=== PATIENT | male | born 1950 | race Caucasian/White ===

== ENCOUNTER 2017-06-09 01:11 | Observation (INO) | payer MEDICARE ==
[2017-06-09] MEDS ORDERED: HEPARIN SODIUM,PORCINE 5,000 UNIT/ML 1 ML VIAL IV STA (01:47)
[2017-06-09] MEDS ORDERED: ONDANSETRON 4 MG/2 ML VIAL IVP STA (01:47)
[2017-06-09] MEDS ORDERED: MORPHINE SULFATE 2 MG/ML SYRINGE IVP STA (01:47)
[2017-06-09] MEDS ORDERED: HEPARIN SOD,PORK IN 0.45% NACL 25,000 UNIT in 0.45% NACL 1 500ML.BAG IV SCH (02:00)
[2017-06-09] MEDS ORDERED: POTASSIUM CHLORIDE ORAL LIQUID 40 MEQ/30 ML CUP PO ONE (02:20)
--- NOTE | 2017-06-09 02:25 | ED ---
Chest Pain HPI - General Chief Complaint: Chest Pain Stated Complaint: chest pain Time Seen by Provider: 06/09/17 01:25 Source: patient, EMS Mode of arrival: EMS Limitations: no limitations - History of Present Illness Initial Comments: 67 years old male was transferred from [facility] with the chest pain. Presented to the ER (at around 7 PM and chest pain chest pain at that point was 6/10 because some aspirin and nitro and oxygen that helped his chest pain significantly they didn't quite comprehensive workup his EKG was unremarkable troponin was negative BNP was negative potassium is bit low CBC was normal, BS metabolic panel within normal range chest x-ray was normal and PE study was normal. Chest pain was not 100% his CHEST pain was nagging at 1/ 10 and transferred him to our facility. On arrival he denies any headaches or chest pain is 1/10 now no epigastric pain no neck stiffness no frequency urgency dysuria no symptoms of TIA or CVA - Related Data Home Medications Medication Instructions Recorded Confirmed Atenolol 50 mg PO HS 11/06/15 11/19/15 Glucosam/Hong-Msm1/C/Ryan/Bosw 1 tab PO DAILY 11/06/15 11/19/15 [Glucosamine-Chondroitin Tablet] Losartan/Hydrochlorothiazide 1 tab PO DAILY 11/06/15 11/19/15 [Losartan-Hctz 100-25 mg Tab] NIFEdipine [Adalat cc] 90 mg PO DAILY 11/06/15 11/19/15 Omeprazole [PriLOSEC] 20 mg PO BID PRN 11/06/15 11/19/15 Ponaris 1 drop EA NOSTRIL DAILY 11/06/15 11/19/15 Previous Rx's Medication Instructions Recorded Aspirin EC [Ecotrin] 325 mg PO DAILY #30 tablet. 11/07/15 Atorvastatin [Lipitor] 80 mg PO DAILY #30 tab 11/07/15 Nitroglycerin Sl Tabs [Nitrostat] 0.4 mg SUBLINGUAL Q5M PRN #25 tab 11/07/15 Prasugrel [Effient] 10 mg PO DAILY #30 tab 11/07/15 Isosorbide Mononitrate ER [Imdur] 30 mg PO DAILY #90 tab.er.24h 11/19/15 Allergies Allergy/AdvReac Type Severity Reaction Status Date / Time Sulfa (Sulfonamide Allergy Anaphylaxis Verified 11/19/15 11:54 Antibiotics) Review of Systems ROS Statement: Those systems with pertinent positive or pertinent negative responses have been documented in the HPI. ROS Other: All systems not noted in ROS Statement are negative. Past Medical History Past Medical History: Chest Pain / Angina, GERD/Reflux, Hyperlipidemia, Hypertension Additional Past Medical History / Comment(s): Small hiatal hernia, diverticulosis, gastritis, low grade distal esophagitis, chronic sinusitis, low back pain and bilateral hip pain with bilateral leg weakness-has been seeing a chiropractor. History of Any Multi-Drug Resistant Organisms: None Reported Past Surgical History: Adenoidectomy, Heart Catheterization With Stent, Orthopedic Surgery, Tonsillectomy Additional Past Surgical History / Comment(s): VASECTOMY, Circumcism, RIGHT SHOULDER arthrotomy, lasik surgery bilateral eyes, EGD's amd colonoscopies now q 5 yrs (originally had some precancerous spots in colon). Past Anesthesia/Blood Transfusion Reactions: No Reported Reaction Date of Last Stent Placement:: 11/06/2015 Past Psychological History: No Psychological Hx Reported Smoking Status: Never smoker Past Alcohol Use History: Occasional Past Drug Use History: None Reported - Past Family History Father Family Medical History: Cancer, Dementia Additional Family Medical History / Comment(s): Father at the age of 84 yrs from dementia and had bladder cancer. Mother Family Medical History: Cancer Additional Family Medical History / Comment(s): Mother at age 63 with cancer believed to start in her leg with metastatic disease to the lung and brain. Patient does not have any siblings. Patient has 2 daughters and 1 son with no major medical problems. General Exam - General Exam Comments Initial Comments: General: The patient is awake and alert, in no distress, and does not appear acutely ill. Skin: Skin is warm and dry and no rashes or lesions are noted. Eye: Pupils are equal, round and reactive to light, extra-ocular movements are intact; there is normal conjunctiva bilaterally. Ears, nose, mouth and throat: There are moist mucous membranes and no oral lesions. Neck: The neck is supple, there is no tenderness or JVD. Cardiovascular: There is a regular rate and rhythm. No murmur, rub or gallop is appreciated. Respiratory: To auscultation bilateral, no wheezing no rhonchi no distress respiratory julio noticed Gastrointestinal: Soft, non-distended, non-tender abdomen without masses or organomegaly noted. There is no rebound or guarding present. Bowel sounds are unremarkable. Back: There is no tenderness to palpation in the midline. There is no obvious deformity. Musculoskeletal: Normal ROM, no tenderness, There is no pedal edema. There is no calf tenderness or swelling. No cords were appreciated. Neurological: CN II-XII intact, Cranial nerves III through XII are intact. There are no obvious motor or sensory deficits. Coordination appears grossly intact. Speech is normal. Psychiatric: Cooperative, appropriate mood & affect, normal judgment. Limitations: no limitations Course Vital Signs 06/09/17 01:16 Temperature 97.8 F Pulse Rate 66 Respiratory 18 Rate Blood Pressure 148/76 O2 Sat by Pulse 98 Oximetry Ms. Reichby heparinized and now will consult cardiology - Reevaluation(s) Reevaluation #1: He continued to complain about the right calf pain will go ahead and do the right venous Doppler studies 06/09/17 02:27 Critical Care Time Total Critical Care Time: 30 Critical Care Time: 67 years old gentleman is a known no heart disease patient, he has a stent in his LAD and he continued to have a pain bilaterally last though he's EKG is unremarkable so his troponin but then also an area fits into unstable angina. His chest pain has gotten better we plan to put him on heparin drip after bolus and he be treated as acute coronary syndrome he be admitted to Dr. Camarena for his croup since Dr. Pete Henriquez is his primary care Disposition Clinical Impression: Chest pain, History of ischemic heart disease, Right leg pain Disposition: ADMITTED IP TO THIS HOSP Condition: Fair Referrals: Pete Henriquez MD [Primary Care Provider] - 1-2 days
[2017-06-09] MEDS ORDERED: NITROGLYCERIN SL TABS 0.4 MG TAB SUBLINGUAL PRN (03:05)
[2017-06-09] MEDS ORDERED: MORPHINE SULFATE 4 MG/ML SYRINGE IVP PRN (03:05)
[2017-06-09] MEDS ORDERED: HEPARIN SODIUM,PORCINE 5,000 UNIT/ML 1 ML VIAL IV PRN (03:16)
[2017-06-09 04:19] VITALS: BMI 20.9
[2017-06-09 08:21] VITALS: RESP 18
[2017-06-09 09:55] LABS: Anion Gap 8 mmol/L; Blood Urea Nitrogen 22 mg/dL (9-20); Calcium 9.1 mg/dL (8.4-10.2); Carbon Dioxide 26 mmol/L (22-30); Chloride 111 mmol/L (98-107); Glucose 102 mg/dL (74-99); Potassium 4.2 mmol/L (3.5-5.1); Sodium 145 mmol/L (137-145)
[2017-06-09 10:02] LABS: Partial Thromboplastin Time 37.8 sec (22.0-30.0); Prothrombin Time 10.2 sec (9.0-12.0)
[2017-06-09 10:15] LABS: Basophils % (A) 1 %; Eosinophils # (A) 0.1 k/uL (0-0.7); Eosinophils % (A) 1 %; HCT 39.6 % (39.0-53.0); HGB 13.1 gm/dL (13.0-17.5); Lymphocytes % (A) 18 %; MCH 30.6 pg (25.0-35.0); MCHC 33.1 g/dL (31.0-37.0); MCV 92.4 fL (80.0-100.0); Mean Platelet Volume 6.9; Monocytes # (A) 0.4 k/uL (0-1.0); Monocytes % (A) 6 %; Neutrophils # (A) 4.1 k/uL (1.3-7.7); Neutrophils % (A) 73 %; Platelet Count 291 k/uL (150-450); RBC 4.29 m/uL (4.30-5.90); RDW 13.6 % (11.5-15.5); WBC 5.6 k/uL (3.8-10.6)
[2017-06-09] MEDS ORDERED: LOSARTAN-HCTZ 50-12.5 MG 1 EACH TAB PO SCH (10:15)
[2017-06-09] MEDS ORDERED: ISOSORBIDE MONONITRATE ER 30 MG TAB.ER.24H PO SCH (10:15)
[2017-06-09] MEDS ORDERED: NIFEdipine XL 90 MG TAB.ER.24 PO SCH (10:30)
[2017-06-09 11:30] VITALS: BP 140/75; PULSE 73; TEMP 98.1
--- NOTE | 2017-06-09 14:09 | P.CRDCN ---
History of Present Illness Consult date: 06/09/17 Consult reason: chest pain History of present illness: Mr. Pabon is a pleasant 67-year-old male past medical history significant for coronary artery disease with stent to LAD, hypertension, dyslipidemia, parkingsons disease and gastroesophageal reflux disease. He sees Dr. Goodman in the office. We have been asked to see him in consultation for complaints of chest pain. He states yesterday evening around 5pm he started to have heaviness in his chest in the mid-sternal region. The pain radiated to the jaw and down the left arm and was associated with shortness of breath and dizziness. The pain was constant and was alleviated by getting up and moving around. He presented to [facility] for evaluation. Initial EKG and troponin were both unremarkable however he did have hypokalemia 2.9. His potassium was replaced. Repeat this morning was 4.2. Cardiac enzymes negative 3. Current cardiac medications include nifedipine 90 mg, losartan/ hydrochlorothiazide 100/25 mg daily, atenolol 50 mg daily, Imdur 30 mg daily, and aspirin 81 mg daily. Most recent Lexiscan stress test performed in January 2017 is negative for reversible ischemia. Most recent cardiac catheterization performed November 2015 revealed patent stent with bridging of LAD. Review of Systems At the time of my exam: CONSTITUTIONAL: Denies fever. Denies chills. EYES: Denies blurred vision. Denies vision changes. Denies eye pain. EARS, NOSE, MOUTH & THROAT: Denies headache. Denies sore throat. Denies ear pain. CARDIOVASCULAR: Denies chest pain. Denies shortness of breath. Denies orthopnea. Denies PND. Denies palpitations. RESPIRATORY: Denies cough. GASTROINTESTINAL: Denies abdominal pain. Denies diarrhea. Denies constipation. Denies nausea. Denies vomiting. MUSCULOSKELETAL: Planes of pain left lower arm. INTEGUMENTARY: Denies pruitis. Denies rash. NEUROLOGIC: Denies numbness. Denies tingling. Denies weakness. PSYCHIATRIC: Denies anxiety. Denies depression. ENDOCRINE: Denies fatigue. Denies weight change. Denies polydipsia. Denies polyurina. GENITOURINARY: Denies burning, hematuria or urgency with micturation. HEMATOLOGIC: Denies history of anemia. Denies bleeding. Past Medical History Past Medical History: Chest Pain / Angina, GERD/Reflux, Hyperlipidemia, Hypertension Additional Past Medical History / Comment(s): Parkinsons. Small hiatal hernia, diverticulosis, gastritis, low grade distal esophagitis, chronic sinusitis, low back pain and bilateral hip pain with bilateral leg weakness-has been seeing a chiropractor. History of Any Multi-Drug Resistant Organisms: None Reported Past Surgical History: Adenoidectomy, Heart Catheterization With Stent, Orthopedic Surgery, Tonsillectomy Additional Past Surgical History / Comment(s): VASECTOMY, Circumcism, RIGHT SHOULDER arthrotomy, lasik surgery bilateral eyes, EGD's amd colonoscopies now q 5 yrs (originally had some precancerous spots in colon). Past Anesthesia/Blood Transfusion Reactions: No Reported Reaction Date of Last Stent Placement:: 11/06/2015 Past Psychological History: No Psychological Hx Reported Additional Psychological History / Comment(s): Pt resides with his spouse. 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 He is independent. Smoking Status: Never smoker Past Alcohol Use History: Occasional Additional Past Alcohol Use History / Comment(s): Patient was a smoker for 5 years 1 pack per day and quit in 1970. He denies any medical marijuana, marijuana street drug use. He drinks alcohol occasionally. 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 Past Drug Use History: None Reported - Past Family History Father Family Medical History: Cancer, Dementia Additional Family Medical History / Comment(s): Father at the age of 84 yrs from dementia and had bladder cancer. Mother Family Medical History: Cancer Additional Family Medical History / Comment(s): Mother at age 63 with cancer believed to start in her leg with metastatic disease to the lung and brain. Patient does not have any siblings. Patient has 2 daughters and 1 son with no major medical problems. Medications and Allergies Home Medications Medication Instructions Recorded Confirmed Type Atenolol 50 mg PO HS 11/06/15 06/09/17 History Losartan/Hydrochlorothiazide 1 tab PO DAILY 11/06/15 06/09/17 History [Losartan-Hctz 100-25 mg Tab] NIFEdipine [Adalat cc] 90 mg PO DAILY 11/06/15 06/09/17 History Omeprazole [PriLOSEC] 20 mg PO BID PRN 11/06/15 06/09/17 History Aspirin 81 mg PO DAILY chew 06/09/17 Rx Carbidopa-Levodopa 25-100 mg 1 tab PO QID@11,14,17,21 06/09/17 06/09/17 History [Sinemet 25-100 mg] Carbidopa-Levodopa 25-100 mg 2 tab PO DAILY@0700 06/09/17 06/09/17 History [Sinemet 25-100 mg] Isosorbide Mononitrate ER [Imdur] 60 mg PO DAILY #30 tab.er.24h 06/09/17 Rx Allergies Allergy/AdvReac Type Severity Reaction Status Date / Time Sulfa (Sulfonamide Allergy Anaphylaxis Verified 06/09/17 08:17 Antibiotics) Physical Exam Vitals: Vital Signs Temp Pulse Pulse Resp BP BP BP 06/09/17 08:00 97.5 F L 81 18 169/87 06/09/17 04:30 16 06/09/17 04:11 97.8 F 68 16 126/69 06/09/17 01:16 97.8 F 66 18 148/76 Pulse Ox 06/09/17 08:00 95 06/09/17 04:30 06/09/17 04:11 99 06/09/17 01:16 98 Intake and Output 06/08/17 06/09/17 06/09/17 22:59 06:59 14:59 Other: Weight 72.121 kg Blood pressure 169/87 heart rate 81 afebrile GENERAL: This is a 67-year-old male in no apparent distress at the time of my examination. Generalized tremors. HEENT: Head is atraumatic, normocephalic. Pupils are equal, round. Sclerae anicteric. Conjunctivae are clear. Mucous membranes of the mouth are moist. Neck is supple. There is no jugular venous distention. No carotid bruit is heard. LUNGS: Clear to auscultation no wheezes, rales or rhonchi. No chest wall tenderness is noted on palpation or with deep breathing. HEART: Regular rate and rhythm without murmurs, rubs or gallops. S1 and S2 heard. ABDOMEN: Soft, nontender. Bowel sounds are heard. No organomegaly noted. EXTREMITIES: No evidence of peripheral edema and no calf tenderness noted. VASCULAR: Radial and dorsalis pedis pulses palpated, no evidence of clubbing. NEUROLOGIC: Patient is awake, alert and oriented x3. Results 06/09/17 09:13 06/09/17 09:13 Cardiac Enzymes 06/09/17 Range/Units 02:11 Troponin I 0.013 (0.000-0.034) ng/mL Current Medications Generic Name Dose Route Start Last Admin Trade Name Damienq PRN Reason Stop Dose Admin Aspirin 325 mg 06/10/17 09:00 Aspirin PO DAILY AISLINN Heparin Sodium (Porcine) 0 unit 06/09/17 03:16 Heparin IV PER PROTOCOL PRN Low PTT Protocol Heparin Sodium/Sodium Chloride 500 mls @ 17.3 mls/hr 06/09/17 02:00 06/09/17 03:19 25,000 unit/ Sodium Chloride IV 12 units/kg/hr .Q24H AISLINN 17.3 mls/hr Protocol Administration 12 UNITS/KG/HR Morphine Sulfate 2 mg 06/09/17 03:05 Morphine Sulfate (Inj) IVP Q5M PRN Chest Pain Nitroglycerin 0.4 mg 06/09/17 03:05 Nitrostat SUBLINGUAL Q5M PRN Chest Pain Intake and Output 06/08/17 06/09/17 06/09/17 22:59 06:59 14:59 Other: Weight 72.121 kg Assessment and Plan Assessment: ASSESSMENT 1. Chest pain, atypical. Acute coronary event has been ruled out with negative cardiac enzymes as well as no changes in the EKG. Most recent Lexiscan stress test was negative January 2017 2. History of coronary artery disease most recent cardiac catheterization November 2015 shows no progression of disease and patent stent of the LAD 3. Hypertension 4. Dyslipidemia 5. Gastroesophageal reflux disease 6. Hypokalemia, resolved PLAN An acute coronary event has been ruled out with no significant EKG changes and negative cardiac enzymes. Increase Imdur to 60 mg daily. Follow-up with Dr. Goodman in 2-3 weeks. Thank you kindly for this consultation. Nurse Practitioner note has been reviewed, I agree with a documented findings and plan of care. Patient was seen and examined.
--- NOTE | 2017-06-09 15:25 | P.HPIM ---
History of Present Illness H&P Date: 06/09/17 Chief Complaint: Chest pain HISTORY AND PHYSICAL AND DISCHARGE SUMMARY: This is a 67-year-old male patient of Dr. Pete Henriquez with a past medical history of hiatal hernia and gastroesophageal reflux disease, hyperlipidemia, hypertension, non-ST elevated myocardial infarction status post mid LAD stent in 2016, Parkinson's. Patient recently has gallbladder removed [address] Polanco [facility]. Patient states the he developed pressure-type pain in his upper right chest and went into his jaw and felt like his wrists and ankles were tingling. He took nitroglycerin with no improvement after 5 minutes he called 911. He was taken to [facility] where he was evaluated and then transferred to [facility] emergency center. He states he has stress test done 6 months ago but he has been less active and now walks with a cane due to his Parkinson's that was diagnosed 18 months ago. He states it had a sudden onset and he has been following with Dr. Nobles. He is also following with Dr. Vallecillo and is scheduled for steroid injections. He has recently lost 79 pounds. Patient was placed on the observation unit and he has been seen by cardiology and he's been cleared for discharge home. Cardiology increased his Imdur from 30 mg to 60 mg and plan for follow-up in the office. Troponins have been negative on 3 draws. EKG showed no acute changes. Patient will be discharged home today in stable condition. Discharge Medication List Atenolol 50 mg PO HS 11/06/15 [History] Losartan/Hydrochlorothiazide [Losartan-Hctz 100-25 mg Tab] 1 tab PO DAILY [History] NIFEdipine [Adalat cc] 90 mg PO DAILY 11/06/15 [History] Omeprazole [PriLOSEC] 20 mg PO BID PRN 11/06/15 [History] Aspirin 81 mg PO DAILY chew 06/09/17 [Rx] Carbidopa-Levodopa 25-100 mg [Sinemet 25-100 mg] 1 tab PO QID@11,14,17,21 [History] Carbidopa-Levodopa 25-100 mg [Sinemet 25-100 mg] 2 tab PO DAILY@0700 06/09/17 [ History] Isosorbide Mononitrate ER [Imdur] 60 mg PO DAILY #30 tab.er.24h 06/09/17 [Rx] Review of Systems All systems: negative Constitutional: Denies chills, Denies fever Eyes: denies blurred vision, denies pain Ears, nose, mouth and throat: Denies headache, Denies sore throat Cardiovascular: Reports chest pain, Denies decreased exercise tolerance, Denies dyspnea on exertion, Denies high blood pressure, Denies leg edema, Denies lightheadedness, Denies shortness of breath, Denies syncope Respiratory: Denies cough, Denies cough with sputum, Denies dyspnea, Denies excessive sputum, Denies hemoptysis, Denies home oxygen Gastrointestinal: Denies abdominal pain, Denies diarrhea, Denies nausea, Denies vomiting Musculoskeletal: Denies myalgias Integumentary: Denies pruritus, Denies rash Neurological: Denies numbness, Denies weakness Psychiatric: Denies anxiety, Denies depression Endocrine: Denies fatigue, Denies weight change Past Medical History Past Medical History: Chest Pain / Angina, GERD/Reflux, Hyperlipidemia, Hypertension Additional Past Medical History / Comment(s): Parkinsons. Small hiatal hernia, diverticulosis, gastritis, low grade distal esophagitis, chronic sinusitis, low back pain and bilateral hip pain with bilateral leg weakness-has been seeing a chiropractor. History of Any Multi-Drug Resistant Organisms: None Reported Past Surgical History: Adenoidectomy, Cholecystectomy, Heart Catheterization With Stent, Orthopedic Surgery, Tonsillectomy Additional Past Surgical History / Comment(s): VASECTOMY, Circumcism, RIGHT SHOULDER arthrotomy, lasik surgery bilateral eyes, EGD's amd colonoscopies now q 5 yrs (originally had some precancerous spots in colon). Past Anesthesia/Blood Transfusion Reactions: No Reported Reaction Date of Last Stent Placement:: 11/06/2015 Past Psychological History: No Psychological Hx Reported Additional Psychological History / Comment(s): Pt resides with his spouse. 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 He is independent. Smoking Status: Never smoker Past Alcohol Use History: Occasional Additional Past Alcohol Use History / Comment(s): Patient was a smoker for 5 years 1 pack per day and quit in 1970. He denies any medical marijuana, marijuana street drug use. He drinks alcohol occasionally. He recently retired in January 2015 after 46 years as a security police. Past Drug Use History: None Reported - Past Family History Father Family Medical History: Cancer, Dementia Additional Family Medical History / Comment(s): Father at the age of 64 yrs from dementia and had bladder cancer. Mother Family Medical History: Cancer Additional Family Medical History / Comment(s): Mother at age 63 with cancer believed to start in her leg with metastatic disease to the lung and brain. Patient does not have any siblings. Patient has 2 daughters and 1 son with no major medical problems. Medications and Allergies Home Medications Medication Instructions Recorded Confirmed Type Atenolol 50 mg PO HS 11/06/15 06/09/17 History Losartan/Hydrochlorothiazide 1 tab PO DAILY 11/06/15 06/09/17 History [Losartan-Hctz 100-25 mg Tab] NIFEdipine [Adalat cc] 90 mg PO DAILY 11/06/15 06/09/17 History Omeprazole [PriLOSEC] 20 mg PO BID PRN 11/06/15 06/09/17 History Aspirin 81 mg PO DAILY chew 06/09/17 Rx Carbidopa-Levodopa 25-100 mg 1 tab PO QID@11,14,17,21 06/09/17 06/09/17 History [Sinemet 25-100 mg] Carbidopa-Levodopa 25-100 mg 2 tab PO DAILY@0700 06/09/17 06/09/17 History [Sinemet 25-100 mg] Isosorbide Mononitrate ER [Imdur] 60 mg PO DAILY #30 tab.er.24h 06/09/17 Rx Allergies Allergy/AdvReac Type Severity Reaction Status Date / Time Sulfa (Sulfonamide Allergy Anaphylaxis Verified 06/09/17 08:17 Antibiotics) Physical Exam Vitals: Vital Signs Temp Pulse Pulse Resp BP BP BP 06/09/17 11:29 98.1 F 73 18 140/75 06/09/17 08:00 97.5 F L 81 18 169/87 06/09/17 04:30 16 06/09/17 04:11 97.8 F 68 16 126/69 06/09/17 01:16 97.8 F 66 18 148/76 Pulse Ox 06/09/17 11:29 96 06/09/17 08:00 95 06/09/17 04:30 06/09/17 04:11 99 06/09/17 01:16 98 Intake and Output 06/08/17 06/09/17 06/09/17 22:59 06:59 14:59 Other: Voiding Method Toilet # Voids 1 Weight 72.121 kg General appearance: cooperative, no acute distress. negative: average body habitus, disheveled, mild distress, morbidly obese, obese, severe distress, thin - EENT Eyes: Reports normal apperance, Denies abnormal pupil, Denies anicteric sclerae , Denies disc margins sharp, Denies edentulous, Denies EOMI, Denies PERRLA, Denies fundus normal, Denies photophobia, Denies dentition normal, Denies poor dentition, Denies ptosis, Denies scleral icterus ENT: Reports normal oropharynx, Denies hard of hearing, Denies hearing grossly normal, Denies NA/AT, Denies other, Denies pharyngeal erythema, Denies thrush, Denies tonsillar exudates, Denies tonsillar swelling Ears: bilateral: normal - Neck Neck: Reports normal ROM, Denies lymphadenopathy, Denies other, Denies rigidity , Denies stridor, Denies thyromegaly Carotids: bilateral: upstroke normal Thyroid: bilateral: normal size - Respiratory Respiratory: bilateral: CTA - Cardiovascular Rhythm: regular Heart sounds: normal: S1, S2 Abnormal Heart Sounds: Reports systolic murmur - Gastrointestinal General gastrointestinal: Reports decreased bowel sounds, Reports soft, Denies absent bowel sounds, Denies distended, Denies hepatomegaly, Denies hyperactive bowel sounds, Denies normal bowel sounds, Denies organomegaly, Denies rigid, Denies scaphoid, Denies splenomegaly, Denies tenderness, Denies umbilical hernia , Denies ventral hernia - Integumentary Integumentary: Reports normal, Reports pale, Denies calor, Denies cellulitis, Denies cyanotic, Denies decreased turgor, Denies flushed, Denies jaundiced, Denies normal turgor, Denies rash, Denies ulcer - Neurologic Neurologic: CNII-XII intact - Musculoskeletal Musculoskeletal: Reports gait normal, Reports generalized weakness - Psychiatric Psychiatric: Reports A&O x's 3 Results CBC & Chem 7: 06/09/17 09:13 06/09/17 09:13 Labs: Abnormal Lab Results - Last 24 Hours (Table) 06/09/17 06/09/17 06/09/17 Range/Units 09:13 09:13 09:13 RBC 4.29 L (4.30-5.90) m/uL APTT 37.8 H (22.0-30.0) sec Chloride 111 H (98-107) mmol/L BUN 22 H (9-20) mg/dL Glucose 102 H (74-99) mg/dL Thrombosis Risk Factor Assmnt - Choose All That Apply Each Risk Factor Represents 2 Points: Age 61-74 years Thrombosis Risk Factor Assessment Total Risk Factor Score: 2 Thrombosis Risk Factor Assessment Level: Low Risk Assessment and Plan Plan: 1. Chest pain right-sided with radiation into the right neck. This may be related to spondylosis from the spine. Patient does have appointments set up for Dr. Vallecillo for steroid injections. 2. History of non-ST elevated myocardial infarction status post stent, stable. Imdur increased by cardiology. Aspirin added. 3. Hyperlipidemia. Continue Lipitor 10 mg at bedtime 3. Gastroesophageal reflux disease. Continue omeprazole 20 mg twice daily. 4. Hypertension. Continue atenolol 50 mg hs, losartan and hydrochlorothiazide , Procardia XL 90 mg daily. 5. Parkinson's. Continue Sinemet. Patient placed on the observation unit. Discharge plan: Home Impression and plan of care have been directed as dictated by the signing physician. Sapna Mcconnell nurse practitioner acting as scribe for signing physician.
[2017-06-09] MEDS ORDERED: ATENOLOL 50 MG TAB PO SCH (21:00)
[2017-06-10] MEDS ORDERED: ISOSORBIDE MONONITRATE ER 60 MG TAB.ER.24H PO SCH (09:00)
[2017-06-10] MEDS ORDERED: ASPIRIN 325 MG TAB PO SCH (09:00)
[2017-06-10] MEDS ORDERED: ASPIRIN 81 MG PO SCH (09:00)
== END 2017-06-09 13:20 | disposition home or self-care (01) ==
LOC: EC 01:11 → 3OBS 03:05
PROVIDERS: ADMIT Internal Medicine Geriatric Medicine; ATTEND Internal Medicine Geriatric Medicine
DX: R07.89 Other chest pain (principal); M79.604 Pain in right leg; R06.02 Shortness of breath; R42 Dizziness and giddiness; E87.6 Hypokalemia; R68.84 Jaw pain; R20.2 Paresthesia of skin; I25.2 Old myocardial infarction; I25.10 Atherosclerotic heart disease of native coronary artery without angina pectoris; E78.5 Hyperlipidemia, unspecified; K21.9 Gastro-esophageal reflux disease without esophagitis; I10 Essential (primary) hypertension; G20 Parkinson's disease; K44.9 Diaphragmatic hernia without obstruction or gangrene; M47.9 Spondylosis, unspecified; J32.9 Chronic sinusitis, unspecified; Z79.899 Other long term (current) drug therapy; Z88.2 Allergy status to sulfonamides; Z95.5 Presence of coronary angioplasty implant and graft; Z80.52 Family history of malignant neoplasm of bladder; Z80.9 Family history of malignant neoplasm, unspecified; Z81.8 Family history of other mental and behavioral disorders; Z79.82 Long term (current) use of aspirin; Z87.891 Personal history of nicotine dependence; Z90.49 Acquired absence of other specified parts of digestive tract; M54.5 Low back pain; R53.1 Weakness; M25.551 Pain in right hip; M25.552 Pain in left hip; K57.90 Diverticulosis of intestine, part unspecified, without perforation or abscess without bleeding; K29.70 Gastritis, unspecified, without bleeding; K20.9 Esophagitis, unspecified; Z79.01 Long term (current) use of anticoagulants
CPT/HCPCS: 99291; 96365 ×2; 96376 ×2; 96375 ×3; 36415; 80048; 84484; 85025; 85610; 85730; G0378; J1644 ×2; J2405; J2270; 93005

== ENCOUNTER 2017-07-17 17:13 | Inpatient (IN) | payer MEDICARE ==
--- NOTE | 2017-07-17 18:20 | ED ---
General Adult HPI - General Chief complaint: Psychiatric Symptoms Stated complaint: EPS EVAL Time Seen by Provider: 07/17/17 17:58 Source: patient, RN notes reviewed Mode of arrival: wheelchair Limitations: no limitations - History of Present Illness Initial comments: 67 yo male presents to the ER with cc of hallucination and delusions x 3-4 days. Patient has a history of Parkinson's disease. He states the last 3 or 4 days he's now having worsening hallucinations and delusions. Patient Zoloft was increased yesterday he does suffer from depression. There were concerned because of his worsening symptoms so they thought that he should be seen. He denies any health concerns. He denies any fever chills. Family states that he just seems worse with his hallucinations without that they should be seen. Patient denies any recent fever, chills, shortness of breath, chest pain, back pain, abdominal pain, nausea vomiting, numbness or tingling, dysuria or hematuria, constipation or diarrhea, headaches or visual changes, or any other current symptoms. - Related Data Home Medications Medication Instructions Recorded Confirmed Atenolol 50 mg PO DAILY 11/06/15 07/17/17 NIFEdipine [Adalat cc] 90 mg PO HS 11/06/15 07/17/17 Omeprazole [PriLOSEC] 20 mg PO DAILY 11/06/15 07/17/17 Carbidopa-Levodopa 25-100 mg 1 tab PO QID 06/09/17 07/17/17 [Sinemet 25-100 mg] ALPRAZolam [Xanax] 0.25 mg PO BID PRN 07/17/17 07/17/17 HYDROcodone/APAP 5-325MG [[place] 1 tab PO Q4HR PRN 07/17/17 07/17/17 5-325] Sertraline HCl [Zoloft] 50 mg PO DAILY 07/17/17 07/17/17 Tamsulosin [Flomax] 0.4 mg PO HS 07/17/17 07/17/17 Allergies Allergy/AdvReac Type Severity Reaction Status Date / Time Sulfa (Sulfonamide Allergy Anaphylaxis Verified 07/17/17 18:07 Antibiotics) Review of Systems ROS Statement: Those systems with pertinent positive or pertinent negative responses have been documented in the HPI. ROS Other: All systems not noted in ROS Statement are negative. Past Medical History Past Medical History: Chest Pain / Angina, GERD/Reflux, Hyperlipidemia, Hypertension Additional Past Medical History / Comment(s): Parkinsons. Small hiatal hernia, diverticulosis, gastritis, low grade distal esophagitis, chronic sinusitis, low back pain and bilateral hip pain with bilateral leg weakness-has been seeing a chiropractor. History of Any Multi-Drug Resistant Organisms: None Reported Past Surgical History: Adenoidectomy, Cholecystectomy, Heart Catheterization With Stent, Orthopedic Surgery, Tonsillectomy Additional Past Surgical History / Comment(s): VASECTOMY, Circumcism, RIGHT SHOULDER arthrotomy, lasik surgery bilateral eyes, EGD's amd colonoscopies now q 5 yrs (originally had some precancerous spots in colon). Past Anesthesia/Blood Transfusion Reactions: No Reported Reaction Date of Last Stent Placement:: 11/06/2015 Past Psychological History: No Psychological Hx Reported Smoking Status: Never smoker Past Alcohol Use History: Occasional Past Drug Use History: None Reported - Past Family History Father Family Medical History: Cancer, Dementia Additional Family Medical History / Comment(s): Father at the age of 64 yrs from dementia and had bladder cancer. Mother Family Medical History: Cancer Additional Family Medical History / Comment(s): Mother at age 63 with cancer believed to start in her leg with metastatic disease to the lung and brain. Patient does not have any siblings. Patient has 2 daughters and 1 son with no major medical problems. General Exam Limitations: no limitations General appearance: alert, in no apparent distress ENT exam: Present: normal exam, mucous membranes moist Neck exam: Present: normal inspection. Absent: tenderness, meningismus, lymphadenopathy Respiratory exam: Present: normal lung sounds bilaterally. Absent: respiratory distress, wheezes, rales, rhonchi, stridor Cardiovascular Exam: Present: regular rate, normal rhythm, normal heart sounds. Absent: systolic murmur, diastolic murmur, rubs, gallop, clicks Psychiatric exam: Absent: homicidal ideation, suicidal ideation Skin exam: Present: warm, dry, intact, normal color. Absent: rash Course Vital Signs 07/17/17 17:32 Temperature 97.9 F Pulse Rate 85 Respiratory 16 Rate Blood Pressure 140/85 O2 Sat by Pulse 97 Oximetry Medical Decision Making - Medical Decision Making 67-year-old male presents with chief complaint of hallucinations and delusions. At this time the patient does not appear to be suffering from any acute medical emergencies. This time the patient is cleared to be evaluated by psychiatry. This time patient was evaluated by psychiatry. I did review blood work. They will follow-up on the patient's urinalysis but has not resulted yet. This time patient will be admitted for psychiatric care. - Lab Data Result diagrams: 07/17/17 18:43 18 18:43 Lab Results 07/17/17 07/17/17 07/17/17 Range/Units 18:43 18:43 18:43 WBC 6.9 (3.8-10.6) k/uL RBC 4.30 (4.30-5.90) m/uL Hgb 13.1 (13.0-17.5) gm/dL Hct 38.7 L (39.0-53.0) % MCV 89.9 (80.0-100.0) fL MCH 30.6 (25.0-35.0) pg MCHC 34.0 (31.0-37.0) g/dL RDW 13.0 (11.5-15.5) % Plt Count 341 (150-450) k/uL Neutrophils % 80 % Lymphocytes % 14 % Monocytes % 4 % Eosinophils % 0 % Basophils % 1 % Neutrophils # 5.5 (1.3-7.7) k/uL Lymphocytes # 1.0 (1.0-4.8) k/uL Monocytes # 0.3 (0-1.0) k/uL Eosinophils # 0.0 (0-0.7) k/uL Basophils # 0.0 (0-0.2) k/uL Sodium 144 (137-145) mmol/L Potassium 3.9 (3.5-5.1) mmol/L Chloride 107 (98-107) mmol/L Carbon Dioxide 25 (22-30) mmol/L Anion Gap 12 mmol/L BUN 21 H (9-20) mg/dL Creatinine 0.60 L (0.66-1.25) mg/dL Est GFR (CKD-EPI)AfAm >90 (>60 ml/min/1.73 sqM) Est GFR (CKD-EPI)NonAf >90 (>60 ml/min/1.73 sqM) Glucose 100 H (74-99) mg/dL Calcium 9.3 (8.4-10.2) mg/dL Total Bilirubin 1.0 (0.2-1.3) mg/dL AST 14 L (17-59) U/L ALT 15 L (21-72) U/L Alkaline Phosphatase 74 (38-126) U/L Ammonia 13 (<30) umol/L Total Protein 6.3 (6.3-8.2) g/dL Albumin 3.6 (3.5-5.0) g/dL Disposition Clinical Impression: Depression Disposition: TRANSFER TO PSYCH HOSP/UNIT Condition: Stable Referrals: Pete Henriquez MD [Primary Care Provider] - 1-2 days
[2017-07-17 18:58] LABS: Basophils % (A) 1 %; Eosinophils % (A) 0 %; HCT 38.7 % (39.0-53.0); HGB 13.1 gm/dL (13.0-17.5); Lymphocytes % (A) 14 %; MCH 30.6 pg (25.0-35.0); MCV 89.9 fL (80.0-100.0); Mean Platelet Volume 6.6; Monocytes # (A) 0.3 k/uL (0-1.0); Monocytes % (A) 4 %; Neutrophils # (A) 5.5 k/uL (1.3-7.7); Neutrophils % (A) 80 %; Platelet Count 341 k/uL (150-450); WBC 6.9 k/uL (3.8-10.6)
[2017-07-17 19:09] LABS: ALT 15 U/L (21-72); AST 14 U/L (17-59); Albumin 3.6 g/dL (3.5-5.0); Alkaline Phosphatase 74 U/L (38-126); Anion Gap 12 mmol/L; Blood Urea Nitrogen 21 mg/dL (9-20); Calcium 9.3 mg/dL (8.4-10.2); Carbon Dioxide 25 mmol/L (22-30); Chloride 107 mmol/L (98-107); Glucose 100 mg/dL (74-99); Potassium 3.9 mmol/L (3.5-5.1); Sodium 144 mmol/L (137-145); Total Protein 6.3 g/dL (6.3-8.2)
[2017-07-17] MEDS ORDERED: ACETAMINOPHEN TAB 325 MG TAB PO PRN (19:56)
[2017-07-17] MEDS ORDERED: MAG HYDROX/AL HYDROX/SIMETH 30 ML CUP PO PRN (19:56)
[2017-07-17] MEDS ORDERED: MAGNESIUM HYDROXIDE 2,400 MG/10 ML CUP PO PRN (19:56)
[2017-07-17 20:14] VITALS: BMI 18.6
[2017-07-17] MEDS: NIFEdipine XL 90 MG TAB.ER.24 PO SCH (21:53)
[2017-07-17] MEDS: TAMSULOSIN 0.4 MG CAP.ER.24H PO SCH (21:54)
[2017-07-17] MEDS: CARBIDOPA-LEVODOPA 25-100 MG 1 EACH TAB PO SCH (21:54)
[2017-07-17] MEDS ORDERED: HYDROcodone/APAP 5-325MG 1 EACH TAB PO PRN (22:00)
[2017-07-18] MEDS: ALPRAZolam 0.25 MG TAB PO PRN (01:12)
[2017-07-18] MEDS: PANTOPRAZOLE 40 MG TABLET PO SCH (07:55)
[2017-07-18] MEDS: ATENOLOL 50 MG TAB PO SCH (08:39)
[2017-07-18] MEDS: CARBIDOPA-LEVODOPA 25-100 MG 1 EACH TAB PO SCH ×4 (08:39→20:01)
[2017-07-18] MEDS: SERTRALINE 50 MG TAB PO SCH (08:39)
[2017-07-18 09:39] LABS: Basophils % (A) 1 %; Eosinophils % (A) 1 %; HCT 37.1 % (39.0-53.0); HGB 12.4 gm/dL (13.0-17.5); Lymphocytes % (A) 20 %; MCH 30.4 pg (25.0-35.0); MCHC 33.3 g/dL (31.0-37.0); MCV 91.1 fL (80.0-100.0); Mean Platelet Volume 6.6; Monocytes # (A) 0.2 k/uL (0-1.0); Monocytes % (A) 5 %; Neutrophils # (A) 3.6 k/uL (1.3-7.7); Neutrophils % (A) 73 %; Platelet Count 276 k/uL (150-450); RBC 4.07 m/uL (4.30-5.90); RDW 13.2 % (11.5-15.5)
[2017-07-18 09:57] LABS: ALT 19 U/L (21-72); AST 13 U/L (17-59); Albumin 3.2 g/dL (3.5-5.0); Alkaline Phosphatase 68 U/L (38-126); Anion Gap 12 mmol/L; Blood Urea Nitrogen 20 mg/dL (9-20); Calcium 8.9 mg/dL (8.4-10.2); Carbon Dioxide 27 mmol/L (22-30); Chloride 107 mmol/L (98-107); Cholesterol 138 mg/dL (<200); Glucose 79 mg/dL (74-99); HDL Cholesterol 38 mg/dL (40-60); LDL Cholesterol,Calculated 79 mg/dL (0-99); Potassium 3.5 mmol/L (3.5-5.1); Sodium 146 mmol/L (137-145); Total Bilirubin 1.1 mg/dL (0.2-1.3); Total Protein 5.7 g/dL (6.3-8.2); Triglycerides 105 mg/dL (<150)
[2017-07-18] MEDS: DOCUSATE 100 MG CAP PO SCH ×2 (10:52→20:01)
--- NOTE | 2017-07-18 13:08 | P.HP ---
Psychiatric H&P - . H&P Date: 07/18/17 History & Physical: Allergies Allergy/AdvReac Type Severity Reaction Status Date / Time Sulfa (Sulfonamide Allergy Anaphylaxis Verified 07/17/17 20:05 Antibiotics) Vital Signs Temp 98.1 F 07/18/17 07:16 Pulse 86 07/18/17 07:16 Resp 18 07/18/17 07:16 BP 169/86 07/18/17 07:16 Pulse Ox 97 07/17/17 17:32 Intake & Output 07/17/17 07/18/17 07/18/17 18:59 06:59 18:59 Weight 63.049 kg 64 kg Laboratory Last Values WBC 5.0 k/uL (3.8-10.6) 07/18/17 09:12 RBC 4.07 m/uL (4.30-5.90) L 07/18/17 09:12 Hgb 12.4 gm/dL (13.0-17.5) L 07/18/17 09:12 Hct 37.1 % (39.0-53.0) L 07/18/17 09:12 MCV 91.1 fL (80.0-100.0) 07/18/17 09:12 MCH 30.4 pg (25.0-35.0) 07/18/17 09:12 MCHC 33.3 g/dL (31.0-37.0) 07/18/17 09:12 RDW 13.2 % (11.5-15.5) 07/18/17 09:12 Plt Count 276 k/uL (150-450) 07/18/17 09:12 Neutrophils % 73 % 07/18/17 09:12 Lymphocytes % 20 % 07/18/17 09:12 Monocytes % 5 % 07/18/17 09:12 Eosinophils % 1 % 07/18/17 09:12 Basophils % 1 % 07/18/17 09:12 Neutrophils # 3.6 k/uL (1.3-7.7) 07/18/17 09:12 Lymphocytes # 1.0 k/uL (1.0-4.8) 07/18/17 09:12 Monocytes # 0.2 k/uL (0-1.0) 07/18/17 09:12 Eosinophils # 0.0 k/uL (0-0.7) 07/18/17 09:12 Basophils # 0.0 k/uL (0-0.2) 07/18/17 09:12 Sodium 146 mmol/L (137-145) H 07/18/17 09:12 Potassium 3.5 mmol/L (3.5-5.1) 07/18/17 09:12 Chloride 107 mmol/L (98-107) 07/18/17 09:12 Carbon Dioxide 27 mmol/L (22-30) 07/18/17 09:12 Anion Gap 12 mmol/L 07/18/17 09:12 BUN 20 mg/dL (9-20) 07/18/17 09:12 Creatinine 0.50 mg/dL (0.66-1.25) L 07/18/17 09:12 Est GFR (CKD-EPI)AfAm >90 (>60 ml/min/1.73 sqM) 07/18/17 09:12 Est GFR (CKD-EPI)NonAf >90 (>60 ml/min/1.73 sqM) 07/18/17 09:12 Glucose 79 mg/dL (74-99) 07/18/17 09:12 Calcium 8.9 mg/dL (8.4-10.2) 07/18/17 09:12 Total Bilirubin 1.1 mg/dL (0.2-1.3) 07/18/17 09:12 AST 13 U/L (17-59) L 07/18/17 09:12 ALT 19 U/L (21-72) L 07/18/17 09:12 Alkaline Phosphatase 68 U/L (38-126) 07/18/17 09:12 Ammonia 13 umol/L (<30) 07/17/17 18:43 Total Protein 5.7 g/dL (6.3-8.2) L 07/18/17 09:12 Albumin 3.2 g/dL (3.5-5.0) L 07/18/17 09:12 Triglycerides 105 mg/dL (<150) 07/18/17 09:12 Cholesterol 138 mg/dL (<200) 07/18/17 09:12 LDL Cholesterol, Calc 79 mg/dL (0-99) 07/18/17 09:12 HDL Cholesterol 38 mg/dL (40-60) L 03/18/18 09:12 TSH 0.800 mIU/L (0.465-4.680) 07/18/17 09:12 07/18/17 12:57 IDENTIFYING DATA: 67-year-old male patient HPI: Patient admitted to the inpatient psychiatric unit [facility] on a voluntary basis. Patient reports that he has had some depression lately. He verbalizes having visual hallucinations, makes reference to animation and as well as seeing a dinosaur. He denies any paranoid thoughts. Per chart history family was concerned about recent increases in delusional/bizarre/paranoid thoughts, hallucinations, agitation and confusion. During the ER evaluation he was admitting to seeing bugs crawling on every person in the patient ER room. He seems to relay recent family stressors as well as medical stressors PAST PSYCHIATRIC HISTORY: He denies any previous psychiatric hospital elevation. He denies any history of attempts to harm himself. He has most recently been on Zoloft which was recently titrated per chart history. He has also been on Xanax 0.25 more grams by mouth twice a day when necessary. PMH: Angina, gastroesophageal reflux disease, hyperlipidemia, hypertension, Parkinson's disease, hiatal hernia, diverticulosis, gastritis, esophagitis, sinusitis, low back pain, bilateral hip pain, bilateral leg weakness, heart cath with stent ALLERGIES: Sulfa MEDICATIONS: Tylenol when necessary, Maalox when necessary, Xanax when necessary , Tenormin, Sinemet, Colace, [place] when necessary, milk of magnesia when necessary, Procardia XL, Protonix, Zoloft, Flomax CHEMICAL DEPENDENCY HISTORY: Patient reports no drug use, relays occasional alcohol use in the past. FAMILY PSYCHIATRIC HISTORY: None known at this time. FAMILY CHEMICAL DEPENDENCY HISTORY: No known at this time. SOCIAL HISTORY: He is , per chart history child and family listed as support system. Patient does not have a guardian. MENTAL STATUS EXAM: He is alert and cooperative. Found in his room lying in bed. His mood is described as depressed. He denies any thoughts of harm to self or others. He denies any current hallucinations. He does not make any zia delusional statements. He does not show any current agitation. Is oriented to place and date. His insight is adequate, judgment shows evidence of recent impairment. STRENGTHS/WEAKNESSES: Strengths-family support; weaknesses-medical stressors, coping skills INTELLECTUAL FUNCTIONING: Average IMPRESSIONS: Unspecified psychotic disorder; unspecified depressive disorder PLAN: Patient will be admitted to the inpatient psychiatric unit and [facility] on a voluntary basis. He is currently on one-to- one precautions for concerns regarding fall risk. He'll participate in group and activity therapies and Baseline laboratory workup will be done on the patient as well as medical consultation. We'll initiate low dose of Seroquel at bedtime 25 mg to see if this can help with psychosis symptoms. We'll monitor for any side effects. We'll maintain Zoloft as current which has recently been titrated per chart history. We will look into family supports. Estimated length of stay is 5-7 days. Prognosis is guarded.
[2017-07-18] MEDS ORDERED: RX INFO: IV CONTRAST WAS GIVEN 1 EACH MISC MISCELLANE PRN (15:14)
[2017-07-18] MEDS: IOHEXOL 350 MG/ML 25 ML BOTTLE (ORAL USE) PO PRN ×2 (15:53→17:23)
--- NOTE | 2017-07-18 19:15 | CT ---
EXAMINATION TYPE: CT abdomen pelvis w con DATE OF EXAM: 07/18/2017 COMPARISON: NONE HISTORY: Weight loss CT DLP: 522.90 mGycm Automated exposure control for dose reduction was used. TECHNIQUE: Helical acquisition of images was performed from the lung bases through the pelvis. CONTRAST: Performed with Oral Contrast and with IV Contrast, patient injected with 100 ml mL of Omnipaque 300. FINDINGS: LUNG BASES: No significant abnormality is appreciated. LIVER/GB: 1.5 cm hepatic cyst is identified. There is surgical absence of the gallbladder. Additional subcapsular elongated hepatic lesion that is incompletely characterized is seen along the anterior r ight hepatic lobe on series 4 image 16 and 15. PANCREAS: There is no pancreatic ductal dilatation. SPLEEN: No splenomegaly ADRENALS: No thickening or nodularity KIDNEYS: Bilateral probable renal sinus cysts are present, right greater than left measuring up to 5. 3 cm. No evidence of hydronephrosis of either kidney. FREE AIR: No free air is visualized. REPRODUCTIVE ORGANS: The prostate gland is diffusely heterogenous and enlarged measuring 5.3 cm in tr ansverse dimension. URINARY BLADDER: Urinary bladder is incompletely distended and incompletely evaluated. There is impr ession upon the urinary bladder from the enlarged prostate gland. ADENOPATHY: No greater than 1 cm short axis lymph nodes are seen within the abdomen or pelvis. OSSEOUS STRUCTURES: There is mild retrolisthesis of L2 on L3, likely on a degenerative basis as ther e are multilevel moderate degenerative changes of the visualized thoracolumbar spine. BOWEL: Numerous colonic diverticula are present without pericolonic fat stranding. No evidence of maya wel obstruction. Appendix is air-filled and within normal limits of size. OTHER: Moderate calcific atheromatous changes are seen of the abdominal aorta and its branches. IMPRESSION: 1. INCOMPLETELY CHARACTERIZED SUBCAPSULAR RIGHT HEPATIC LESION FOR WHICH FURTHER EVALUATION WITH BRITNI MOO ENHANCED MRI ABDOMEN COULD BE PERFORMED. ADDITIONAL BENIGN HEPATIC CYST IS SEEN. 2. BILATERAL PROBABLE RENAL SINUS CYSTS WITH NO EVIDENCE OF OBSTRUCTION. 3. ENLARGED AND DIFFUSELY HETEROGENOUS PROSTATE GLAND. CORRELATE WITH PSA TO DETERMINE NEED FOR FURTH ER STUDIES. 4. COLONIC DIVERTICULOSIS WITHOUT EVIDENCE OF DIVERTICULITIS.
[2017-07-18 19:34] LABS: Hemoglobin A1C 5.5 % (4.0-6.0)
[2017-07-18] MEDS: NIFEdipine XL 90 MG TAB.ER.24 PO SCH (20:00)
[2017-07-18] MEDS: TAMSULOSIN 0.4 MG CAP.ER.24H PO SCH (20:01)
[2017-07-18] MEDS: QUEtiapine 25 MG TAB PO SCH (20:01)
--- NOTE | 2017-07-19 | CONS ---
CONSULTATION CHIEF COMPLAINT: A 67-year-old white male with worsening psychiatric symptoms of depression for which his family brought him to the hospital as he was more and more depressed. He has been weaned off his Sinemet of multiple doses from 6 a day down to 3 to 4 a day by Neurology recently, 2 months ago, which could be contributing to his depression. He denies any chest pain, shortness of breath, fevers, chills, nausea, vomiting, dysuria, frequency, urgency, hesitancy. HOME MEDICATION: 1. Atenolol 50 daily. 2. 90 mg daily. 3. Prilosec 20 mg daily. 4. Sinemet 1 q.i.d. 5. Xanax 0.25 b.i.d. 6. [place] 5/325 every 4 to 6 hours p.r.n. 7. Zoloft 50 mg daily. 8. Flomax 0.4 mg daily. ALLERGIES: SULFA. REVIEW OF SYSTEMS: Fourteen point review of systems negative except for mentioned in HPI. PAST MEDICAL HISTORY: Chest pain, angina, GERD, dyslipidemia, hypertension, gastritis, esophagitis, hip pain. PAST SURGICAL HISTORY: Adenoidectomy, cholecystectomy, heart catheterization with stent, orthopedic surgery, tonsillectomy, vasectomy, circumcision, right shoulder arthroscopy, LASIK bilateral eyes, EGD, colonoscopies. SOCIAL HISTORY: Does not smoke, drink alcohol or take illicit drugs. FAMILY HISTORY: Father with cancer and dementia, cancer of the bladder. Mother at age 63 with cancer that started in her leg with metastases to lung and brain. PHYSICAL EXAM: Blood pressure 140/85, O2 97, temp 97.9, pulse 80 to 85, respiratory 16 to 18. NEUROLOGIC: He has mild vsnx-no-udggfavb tremor of his arms. PSYCH: Flat affect, fairly rapid speech, appears paranoid to me. CARDIOVASCULAR: S1, S2. Regular rate and rhythm RESPIRATORY: Clear. SKIN: Warm, dry and intact. BUN 21, creatinine 0.6. ASSESSMENT: 1. Depression. 2. Parkinson's. 3. Hypertension. 4. Coronary artery disease. Await for Psychiatry to see the patient. Continue home medications. Due to extreme amount of weight loss, he has had 30 pounds weight loss over the last 6 months, he was supposed to get a CAT scan of his abdomen. We can do that while in the hospital while psychiatry is evaluating him, if it is okay with psychiatry. He has this scheduled as an outpatient, but will miss it if he is in the hospital. YUAN / LILIA: [id number] /
[2017-07-19] MEDS: SERTRALINE 50 MG TAB PO SCH (08:45)
[2017-07-19] MEDS: DOCUSATE 100 MG CAP PO SCH ×2 (08:45→20:49)
[2017-07-19] MEDS: ATENOLOL 50 MG TAB PO SCH (08:45)
[2017-07-19] MEDS: PANTOPRAZOLE 40 MG TABLET PO SCH (08:45)
[2017-07-19] MEDS: CARBIDOPA-LEVODOPA 25-100 MG 1 EACH TAB PO SCH ×4 (08:45→20:48)
--- NOTE | 2017-07-19 11:06 | P.PN ---
Progress Note - Text Progress Note Date: 07/19/17 Interval History: Patient is a 67-year-old male who is being seen, patient was seen in his room he was lying in bed and stated that he needed to rest before he got up again. Patient states that he did eat his breakfast and stated to me that he thinks he slept fairly well last evening. Patient reports that he is not seeing things, not hearing things. Patient denied any paranoid ideation. Mental Status: Appearance/Attitude: Patient is lying in bed, resting tremors noted on his right arm, he makes good eye contact and is cooperative Behavior: Patient does not display any psychomotor agitation, some psychomotor slowing Speech/Language: Patient's speech is slowed, he is coherent Thought Process: Patient is goal-directed, he responds in brief sentences is no evidence of loose association or flight of ideas. Thought Content: Patient denies any auditory or visual hallucinations no delusions or paranoid ideation were elicited. Patient reported that he did eat breakfast and did sleep last evening. Patient has been up walking with a walker and staff, patient is on a one-to-one due to a fall risk. Patient states he is worried about all of his medical problems. Suicidal/Homicidal Ideation: Patient reports no current suicidal or homicidal ideation Sensorium/Cognition: Patient is alert and oriented to person, place, time and his recent and remote memory were not formally tested Mood/Affect: Patient's mood is pleasant and his affect is blunted, most likely secondary to his Parkinson's Insight/Judgment: Patient's insight and judgment are fair Assessment: Patient was admitted secondary to having psychotic symptoms, delusions and visual hallucinations and had been treated for depression by his primary care physician. Patient has Parkinson's and has been treated with Sinemet which was recently decreased from 6 doses a day to 4 doses. Patient also recently had his gallbladder removed at the end of May at [facility]. Patient was started on Seroquel 25 mg at bedtime, he reports no longer having any visual hallucinations and no delusions were elicited or reported. Patient reports that his appetite was good this morning and he did eat his breakfast. Patient expresses worry about his medical health. Plan: Patient will continue on Seroquel 25 mg at bedtime to target his visual hallucinations, delusions and Zoloft 50 mg daily to target his symptoms of depression. Patient had a computed tomography scan and an MRI is being requested for follow-up of this computed tomography scan. Patient was discussed in team treatment meeting and from a psychiatric standpoint he is stabilizing, we'll consider discharge tomorrow and consider home health.
[2017-07-19] MEDS: ALPRAZolam 0.25 MG TAB PO PRN (15:38)
[2017-07-19] MEDS: NIFEdipine XL 90 MG TAB.ER.24 PO SCH (20:48)
[2017-07-19] MEDS: TAMSULOSIN 0.4 MG CAP.ER.24H PO SCH (20:48)
[2017-07-19] MEDS: QUEtiapine 25 MG TAB PO SCH (20:49)
[2017-07-19 22:51] LABS: Appearance,Urine Clear (Clear); Bacteria,Urine Rare /hpf; Bilirubin,Urine Negative (Negative); Blood,Urine Moderate (Negative); Color,Urine Yellow; Glucose,Urine (UA) Negative (Negative); Ketones,Urine Trace (Negative); Leukocyte Esterase,Urine Moderate (Negative); Mucus,Urine Rare /hpf; Nitrite,Urine Negative (Negative); Protein,Urine Trace (Negative); RBC,Urine 45 /hpf (0-5); Specific Gravity,Urine 1.025 (1.001-1.035); WBC,Urine 24 /hpf (0-5)
[2017-07-19 22:59] LABS: Amphetamine Screen,Urine Not Detected (NotDetected); Barbiturate Screen,Urine Not Detected (NotDetected); Benzodiazepines Screen,Urine Detected (NotDetected); Cocaine Screen,Urine Not Detected (NotDetected); Methadone Screen, Urine Not Detected (NotDetected); Opiate Screen,Urine Not Detected (NotDetected); Oxycodone Screen, Urine Not Detected (NotDetected); Phencyclidine Screen,Urine Not Detected (NotDetected); Tricyclic Antidepressant,Urine Not Detected (NotDetected); Urn Cannabinoid Scrn Not Detected (NotDetected)
[2017-07-20 06:32] VITALS: BP 143/73; PULSE 73; RESP 14; TEMP 98.1
[2017-07-20] MEDS: SERTRALINE 50 MG TAB PO SCH (07:47)
[2017-07-20] MEDS: DOCUSATE 100 MG CAP PO SCH (07:47)
[2017-07-20] MEDS: ATENOLOL 50 MG TAB PO SCH (07:47)
[2017-07-20] MEDS: CARBIDOPA-LEVODOPA 25-100 MG 1 EACH TAB PO SCH ×2 (07:47→13:04)
[2017-07-20] MEDS: PANTOPRAZOLE 40 MG TABLET PO SCH (07:47)
--- NOTE | 2017-07-20 10:24 | P.DS ---
Providers Date of admission: 07/17/17 19:55 Expected date of discharge: 07/20/17 Attending physician: Lashay Burnett MD Consults: 07/17/17 19:56 Consult Physician Routine Consulting Provider: Benedict Henriquez Consult Reason/Comments: medical management Do you want consulting provider notified?: Yes, Notify in am Primary care physician: Pete Henriquez Hospital Course: Discharge Diagnosis: Medication induced psychotic disorder, unspecified depressive disorder Reason for Admission: Patient is a 67-year-old male who was brought to the hospital for evaluation for having visual hallucinations, he was seeing animated objects as well as animals. Patient's family reported that the patient was delusional and confused at home. In the emergency room the patient reported that he was seeing bugs on everyone. Patient also reported that he was having nightmares and was afraid to go to sleep. Patient was diagnosed with Parkinson's disorder in 2016 and his Sinemet had recently been decreased in dosage. Patient was apparently agitated at home and was brought to the emergency room by family. Patient had no prior psychiatric history and was recently placed on Zoloft which was increased to 50 mg. He had also been placed on Xanax 0.25 mg twice a day as needed. Patient had no prior history of inpatient psychiatric admissions and no prior treatment for any psychiatric conditions prior to the diagnosis of Parkinson's. Hospital Course: Patient was admitted on a voluntary basis, patient was placed on one-to-one secondary to his Parkinson's and unstable gait. Patient had routine laboratory studies ordered as well as a medical consultation. Patient was started on his prior medications for his medical problems and continued on Zoloft 50 mg a day as well as Xanax 0.25 mg twice a day as needed. Patient was also begun on Seroquel 25 mg at bedtime to target his hallucinations, paranoia. Patient did not attend groups or activities, was using a walker with assistance to ambulate. Patient states that he was sleeping at night as well as eating better than he had for the last 4 weeks. Patient reported no further visual hallucinations or auditory hallucinations and did not express any paranoid ideation. Patient had been living at home with his after leaving a extended care facility, they had home health but declined visits on a frequent basis. Patient reported to me that the house is not very her free, that he has been unable to bathe while at home secondary to the bathroom not having a shower. Patient had no side effects from his medications and was ready for discharge. Patient had a abdominal/pelvic computed tomography scan which revealed a hepatic lesion that needed further workup as well as an enlarged prostate. Allergies Sulfa (Sulfonamide Antibiotics) Allergy (Verified 07/17/17 20:05) Anaphylaxis Laboratory Last Values WBC 5.0 k/uL (3.8-10.6) 07/18/17 09:12 RBC 4.07 m/uL (4.30-5.90) L 07/18/17 09:12 Hgb 12.4 gm/dL (13.0-17.5) L 07/18/17 09:12 Hct 37.1 % (39.0-53.0) L 07/18/17 09:12 MCV 91.1 fL (80.0-100.0) 07/18/17 09:12 MCH 30.4 pg (25.0-35.0) 07/18/17 09:12 MCHC 33.3 g/dL (31.0-37.0) 07/18/17 09:12 RDW 13.2 % (11.5-15.5) 07/18/17 09:12 Plt Count 276 k/uL (150-450) 07/18/17 09:12 Neutrophils % 73 % 07/18/17 09:12 Lymphocytes % 20 % 07/18/17 09:12 Monocytes % 5 % 07/18/17 09:12 Eosinophils % 1 % 07/18/17 09:12 Basophils % 1 % 07/18/17 09:12 Neutrophils # 3.6 k/uL (1.3-7.7) 07/18/17 09:12 Lymphocytes # 1.0 k/uL (1.0-4.8) 07/18/17 09:12 Monocytes # 0.2 k/uL (0-1.0) 07/18/17 09:12 Eosinophils # 0.0 k/uL (0-0.7) 07/18/17 09:12 Basophils # 0.0 k/uL (0-0.2) 07/18/17 09:12 Sodium 146 mmol/L (137-145) H 07/18/17 09:12 Potassium 3.5 mmol/L (3.5-5.1) 07/18/17 09:12 Chloride 107 mmol/L (98-107) 07/18/17 09:12 Carbon Dioxide 27 mmol/L (22-30) 07/18/17 09:12 Anion Gap 12 mmol/L 07/18/17 09:12 BUN 20 mg/dL (9-20) 07/18/17 09:12 Creatinine 0.50 mg/dL (0.66-1.25) L 07/18/17 09:12 Est GFR (CKD-EPI)AfAm >90 (>60 ml/min/1.73 sqM) 07/18/17 09:12 Est GFR (CKD-EPI)NonAf >90 (>60 ml/min/1.73 sqM) 07/18/17 09:12 Glucose 79 mg/dL (74-99) 07/18/17 09:[address] Glu mg/dL 111 07/18/17 09:12 Hemoglobin A1c 5.5 % (4.0-6.0) 07/18/17 09:12 Calcium 8.9 mg/dL (8.4-10.2) 07/18/17 09:12 Total Bilirubin 1.1 mg/dL (0.2-1.3) 07/18/17 09:12 AST 13 U/L (17-59) L 07/18/17 09:12 ALT 19 U/L (21-72) L 07/18/17 09:12 Alkaline Phosphatase 68 U/L (38-126) 07/18/17 09:12 Ammonia 13 umol/L (<30) 07/17/17 18:43 Total Protein 5.7 g/dL (6.3-8.2) L 07/18/17 09:12 Albumin 3.2 g/dL (3.5-5.0) L 07/18/17 09:12 Triglycerides 105 mg/dL (<150) 07/18/17 09:12 Cholesterol 138 mg/dL (<200) 07/18/17 09:12 LDL Cholesterol, Calc 79 mg/dL (0-99) 07/18/17 09:12 HDL Cholesterol 38 mg/dL (40-60) L 07/18/17 09:12 PSA Screen 9.00 ng/mL (0.00-4.00) H 07/18/17 09:12 TSH 0.800 mIU/L (0.465-4.680) 07/18/17 09:12 Urine Color Yellow 07/19/17 22:40 Urine Appearance Clear (Clear) 07/19/17 22:40 Urine pH 6.0 (5.0-8.0) 07/19/17 22:40 Ur Specific [place] 1.025 (1.001-1.035) 07/19/17 22:40 Urine Protein Trace (Negative) H 07/19/17 22:40 Urine Glucose (UA) Negative (Negative) 07/19/17 22:40 Urine Ketones Trace (Negative) H 07/19/17 22:40 Urine Blood Moderate (Negative) H 07/19/17 22:40 Urine Nitrite Negative (Negative) 07/19/17 22:40 Urine Bilirubin Negative (Negative) 07/19/17 22:40 Urine Urobilinogen 2.0 mg/dL (<2.0) 07/19/17 22:40 Ur Leukocyte Esterase Moderate (Negative) H 07/19/17 22:40 Urine RBC 45 /hpf (0-5) H 07/19/17 22:40 Urine WBC 24 /hpf (0-5) H 07/19/17 22:40 Urine Bacteria Rare /hpf (None) H 07/19/17 22:40 Urine Mucus Rare /hpf (None) H 07/19/17 22:40 Urine Opiates Screen Not Detected (NotDetected) 07/19/17 22:40 Ur Oxycodone Screen Not Detected (NotDetected) 07/19/17 22:40 Urine Methadone Screen Not Detected (NotDetected) 07/19/17 22:40 Ur Propoxyphene Screen Not Detected (NotDetected) 07/19/17 22:40 Ur Barbiturates Screen Not Detected (NotDetected) 07/19/17 22:40 U Tricyclic Antidepress Not Detected (NotDetected) 07/19/17 22:40 Ur Phencyclidine Scrn Not Detected (NotDetected) 07/19/17 22:40 Ur Amphetamines Screen Not Detected (NotDetected) 07/19/17 22:40 U Methamphetamines Scrn Not Detected (NotDetected) 07/19/17 22:40 U Benzodiazepines Scrn Detected (NotDetected) H 07/19/17 22:40 Urine Cocaine Screen Not Detected (NotDetected) 07/19/17 22:40 U Marijuana (THC) Screen Not Detected (NotDetected) 07/19/17 22:40 Discharge Mental Status:Appearance/Attitude: Patient is lying in bed, makes good eye contact and is cooperative Behavior: Patient does not display any psychomotor agitation or retardation. Speech/Language: Patient's speech is spontaneous although slightly slowed, volume is soft and he is coherent Thought Process: Patient is goal-directed, there is no evidence of loose association or flight of ideas. Thought Content: Patient denies any auditory or visual hallucinations no delusions or paranoid ideation were elicited. Patient has been ambulating with a walker with assistance from staff, states that he is been sleeping and eating well. Patient reports no side effects from the medication. Suicidal/Homicidal Ideation: Patient denies any current suicidal or homicidal ideation Sensorium/Cognition: Patient is alert and oriented to person, place, and time and his recent and remote memory are grossly intact Mood/Affect: Patient's mood is euthymic and his affect is flat, suspect secondary to Parkinson's Insight/Judgment: Patient's insight and judgment are fair Risk Assessment: Patient's risk for self-harm is low Discharge Plan: Patient will return home to live with his , social work has given the daughter contact information for a round the clock home care agency. Patient and I discussed assisted living and he stated that he and his would discuss this after he was discharged. Patient will continue on his current medications of Zoloft 50 mg daily, Seroquel 25 mg at bedtime and Xanax 0.25 mg twice a day. No referral for outpatient psychiatry was provided, patient's medications can be adjusted by the PCP and/or neurology. Patient will be given a prescription for Seroquel, he states he has sufficient medications at home. Patient will follow up with PCP regarding abnormal CT scan and need for further testing as well as PSA elevation. Patient Condition at Discharge: Stable Plan - Discharge Summary Discharge Rx Participant: No New Discharge Prescriptions: New Docusate [Colace] 100 mg PO BID #14 cap QUEtiapine [SEROquel] 25 mg PO HS #14 tab Continue Omeprazole [PriLOSEC] 20 mg PO DAILY Atenolol 50 mg PO DAILY NIFEdipine [Adalat cc] 90 mg PO HS Carbidopa-Levodopa 25-100 mg [Sinemet 25-100 mg] 1 tab PO QID HYDROcodone/APAP 5-325MG [[place] 5-325] 1 tab PO Q4HR PRN PRN Reason: Pain ALPRAZolam [Xanax] 0.25 mg PO BID PRN PRN Reason: Anxiety Tamsulosin [Flomax] 0.4 mg PO HS Sertraline HCl [Zoloft] 50 mg PO DAILY Discharge Medication List Atenolol 50 mg PO DAILY 11/06/15 [History] NIFEdipine [Adalat cc] 90 mg PO HS 11/06/15 [History] Omeprazole [PriLOSEC] 20 mg PO DAILY 11/06/15 [History] Carbidopa-Levodopa 25-100 mg [Sinemet 25-100 mg] 1 tab PO QID 06/09/17 [History] ALPRAZolam [Xanax] 0.25 mg PO BID PRN 07/17/17 [History] HYDROcodone/APAP 5-325MG [[place] 5-325] 1 tab PO Q4HR PRN 07/17/17 [History] Sertraline HCl [Zoloft] 50 mg PO DAILY 07/17/17 [History] Tamsulosin [Flomax] 0.4 mg PO HS 07/17/17 [History] Docusate [Colace] 100 mg PO BID #14 cap 07/20/17 [Rx] QUEtiapine [SEROquel] 25 mg PO HS #14 tab 07/20/17 [Rx] Follow up Appointment(s)/Referral(s): [facility] [Other] - As Needed Pete Henriquez MD [Primary Care Provider] - 07/26/17 10:45 am Patient Instructions/Handouts: Parkinson Disease (GEN), Altered Mental Status ( GEN) Activity/Diet/Wound Care/Special Instructions: Activity and diet as tolerated. Avoid the use of street drugs and alcohol. Take all medications as prescribed. When you are in need of refills on your medications please follow up with your outpatient medical provider. Follow up with your outpatient provider for recommended MRI and CT-scan. If symptoms return or become worse return to the emergency room. Discharge Disposition: HOME SELF-CARE
== END 2017-07-20 13:42 | disposition home or self-care (01) | DRG 885 ==
LOC: EC 17:13 → 3MHU 19:55
PROVIDERS: ADMIT Psychiatry & Neurology Psychiatry; ATTEND Psychiatry & Neurology Psychiatry
DX: F23 Brief psychotic disorder (principal); G20 Parkinson's disease; E78.5 Hyperlipidemia, unspecified; T50.905A Adverse effect of unspecified drugs, medicaments and biological substances, initial encounter; F32.9 Major depressive disorder, single episode, unspecified; I10 Essential (primary) hypertension; I25.10 Atherosclerotic heart disease of native coronary artery without angina pectoris; J32.9 Chronic sinusitis, unspecified; K21.9 Gastro-esophageal reflux disease without esophagitis; N40.0 Benign prostatic hyperplasia without lower urinary tract symptoms; Z79.899 Other long term (current) drug therapy; Z80.52 Family history of malignant neoplasm of bladder; Z91.81 History of falling; Z95.5 Presence of coronary angioplasty implant and graft; Z88.2 Allergy status to sulfonamides
CPT/HCPCS: 36415; 74177; 80053; 80061; 80306; 81001; 82075; 82140; 83036; 84443; 85025; 99285

== ENCOUNTER 2017-07-23 13:56 | Observation (INO) | payer MEDICARE ==
--- NOTE | 2017-07-23 15:54 | ED ---
General Adult HPI - General Source: patient, RN notes reviewed Mode of arrival: wheelchair Limitations: no limitations <Keegan Puentes - Last Filed: 07/23/17 16:47> <Keegan Erickson - Last Filed: 07/23/17 21:14> - General Chief complaint: Anxiety Stated complaint: Mental Health Eval Time Seen by Provider: 07/23/17 14:00 - History of Present Illness Initial comments: This is a 67-year-old male who presents to the emergency department with past medical history significant for Parkinson's disease anxiety and has had a heart attack in the past patient states he was discharged from [facility] 2 days ago and ever since she's been so anxious he can't even be in a room by himself without feeling like he can have a panic attack. Patient states he's also delusional and he is told that is from his Parkinson's medications. Patient states he sees cartoon characters in the room occasionally and that is somewhat distrustful is well. Patient denies any chest pain or difficulty breathing patient denies any shortness of breath. Patient denies any headaches. Denies numbness weakness. Patient denies any recent fever chills or cough. (Keegan Puentes) - Related Data Home Medications Medication Instructions Recorded Confirmed Atenolol 50 mg PO DAILY 11/06/15 07/23/17 NIFEdipine [Adalat cc] 90 mg PO HS 11/06/15 07/23/17 Omeprazole [PriLOSEC] 20 mg PO DAILY 11/06/15 07/23/17 Carbidopa-Levodopa 25-100 mg 1 tab PO QID 06/09/17 07/23/17 [Sinemet 25-100 mg] ALPRAZolam [Xanax] 0.25 mg PO BID PRN 07/17/17 07/23/17 HYDROcodone/APAP 5-325MG [[place] 1 tab PO Q4HR PRN 07/17/17 07/23/17 5-325] Sertraline HCl [Zoloft] 50 mg PO DAILY 07/17/17 07/23/17 Tamsulosin [Flomax] 0.4 mg PO HS 07/17/17 07/23/17 Previous Rx's Medication Instructions Recorded Docusate [Colace] 100 mg PO BID #14 cap 07/20/17 QUEtiapine [SEROquel] 25 mg PO HS #14 tab 07/20/17 Allergies Allergy/AdvReac Type Severity Reaction Status Date / Time Sulfa (Sulfonamide Allergy Anaphylaxis Verified 07/23/17 15:56 Antibiotics) Review of Systems ROS Other: All systems not noted in ROS Statement are negative. <Keegan Puentes - Last Filed: 07/23/17 16:47> ROS Other: All systems not noted in ROS Statement are negative. <Keegan Erickson - Last Filed: 07/23/17 21:14> ROS Statement: Those systems with pertinent positive or pertinent negative responses have been documented in the HPI. Past Medical History Past Medical History: Chest Pain / Angina, GERD/Reflux, Hyperlipidemia, Hypertension Additional Past Medical History / Comment(s): Parkinsons. Small hiatal hernia, diverticulosis, gastritis, low grade distal esophagitis, chronic sinusitis, low back pain and bilateral hip pain with bilateral leg weakness-has been seeing a chiropractor. History of Any Multi-Drug Resistant Organisms: None Reported Past Surgical History: Adenoidectomy, Cholecystectomy, Heart Catheterization With Stent, Orthopedic Surgery, Tonsillectomy Additional Past Surgical History / Comment(s): VASECTOMY, Circumcism, RIGHT SHOULDER arthrotomy, lasik surgery bilateral eyes, EGD's amd colonoscopies now q 5 yrs (originally had some precancerous spots in colon). Past Anesthesia/Blood Transfusion Reactions: No Reported Reaction Date of Last Stent Placement:: 11/06/2015 Past Psychological History: No Psychological Hx Reported Smoking Status: Never smoker Past Alcohol Use History: None Reported Past Drug Use History: None Reported - Past Family History Father Family Medical History: Cancer, Dementia Additional Family Medical History / Comment(s): Father at the age of 64 yrs from dementia and had bladder cancer. Mother Family Medical History: Cancer Additional Family Medical History / Comment(s): Mother at age 63 with cancer believed to start in her leg with metastatic disease to the lung and brain. Patient does not have any siblings. Patient has 2 daughters and 1 son with no major medical problems. <Keegan Puentes - Last Filed: 07/23/17 16:47> General Exam Limitations: no limitations <Keegan Puentes - Last Filed: 03/23/18 16:47> <Keegan Erickson - Last Filed: 07/23/17 21:14> - General Exam Comments Initial Comments: GENERAL: Patient is well-developed and well-nourished. Patient is nontoxic and well- hydrated and is in no acute distress. ENT: Neck is soft and supple. No significant lymphadenopathy is noted. Oropharynx is clear. Moist mucous membranes. EYES: The sclera were anicteric and conjunctiva were pink and moist. Extraocular movements were intact and pupils were equal round and reactive to light. Eyelids were unremarkable. PULMONARY: Unlabored respirations. Good breath sounds bilaterally. No audible rales rhonchi or wheezing was noted. CARDIOVASCULAR: There is a regular rate and rhythm without any murmurs gallops or rubs. ABDOMEN: Soft and nontender with normal bowel sounds. SKIN: Skin is clear with no lesions or rashes and otherwise unremarkable. NEUROLOGIC: Patient is alert and oriented x3. Cranial nerves II through XII are grossly intact. Motor and sensory are also intact. Normal speech, volume and content. Symmetrical smile. . MUSCULOSKELETAL: Normal extremities with adequate strength and full range of motion. LYMPHATICS: No significant lymphadenopathy is noted PSYCHIATRIC: Patient appears mildly anxious and is afraid to be alone in the room. (Keegan Puentes) Course <Keegan Puentes - Last Filed: 07/23/17 16:47> <Keegan Erickson - Last Filed: 07/23/17 21:14> Vital Signs 07/23/17 07/23/17 07/23/17 15:10 16:49 18:46 Temperature 98.0 F Pulse Rate 81 65 Respiratory 18 16 18 Rate Blood Pressure 131/86 140/77 O2 Sat by Pulse 99 97 Oximetry - Reevaluation(s) Reevaluation #1: 07/23/17 21:13 Patient was evaluated here in the emergency room by psychiatric department, with recent psychiatric admission. Patient's thought to be unfit for psychiatric floor for long inpatient psychiatric treatment (Keegan Erickson ) Medical Decision Making - Lab Data Result diagrams: 07/23/17 16:24 07/23/17 16:24 <Keegan Puentes - Last Filed: 07/23/17 16:47> - Lab Data Result diagrams: 07/23/17 16:24 07/23/17 16:24 <Keegan Erickson - Last Filed: 07/23/17 21:14> - Medical Decision Making Dr. Erickson the Patient at 5 PM ([email or web address]) 67 male the ER for evaluation, Parkinson's exact exacerbation patient also having altered mental state hallucinations not acting appropriately. We'll admit for neurological evaluation (Keegan Erickson) - Lab Data Lab Results 07/23/17 07/23/17 07/23/17 Range/Units 16:24 16:24 20:00 WBC 5.6 (3.8-10.6) k/uL RBC 4.11 L (4.30-5.90) m/uL Hgb 12.8 L (13.0-17.5) gm/dL Hct 37.1 L (39.0-53.0) % MCV 90.4 (80.0-100.0) fL MCH 31.2 (25.0-35.0) pg MCHC 34.5 (31.0-37.0) g/dL RDW 13.3 (11.5-15.5) % Plt Count 282 (150-450) k/uL Neutrophils % 70 % Lymphocytes % 21 % Monocytes % 6 % Eosinophils % 1 % Basophils % 1 % Neutrophils # 3.9 (1.3-7.7) k/uL Lymphocytes # 1.2 (1.0-4.8) k/uL Monocytes # 0.3 (0-1.0) k/uL Eosinophils # 0.1 (0-0.7) k/uL Basophils # 0.0 (0-0.2) k/uL Sodium 144 (137-145) mmol/L Potassium 3.7 (3.5-5.1) mmol/L Chloride 107 (98-107) mmol/L Carbon Dioxide 26 (22-30) mmol/L Anion Gap 11 mmol/L BUN 21 H (9-20) mg/dL Creatinine 0.54 L (0.66-1.25) mg/dL Est GFR (CKD-EPI)AfAm >90 (>60 ml/min/1.73 sqM) Est GFR (CKD-EPI)NonAf >90 (>60 ml/min/1.73 sqM) Glucose 96 (74-99) mg/dL Calcium 8.8 (8.4-10.2) mg/dL Total Bilirubin 1.0 (0.2-1.3) mg/dL AST 32 (17-59) U/L ALT 32 (21-72) U/L Alkaline Phosphatase 75 (38-126) U/L Total Protein 5.8 L (6.3-8.2) g/dL Albumin 3.3 L (3.5-5.0) g/dL Urine Opiates Screen Detected H (NotDetected) Ur Oxycodone Screen Not Detected (NotDetected) Urine Methadone Screen Not Detected (NotDetected) Ur Propoxyphene Screen Not Detected (NotDetected) Ur Barbiturates Screen Not Detected (NotDetected) U Tricyclic Antidepress Not Detected (NotDetected) Ur Phencyclidine Scrn Not Detected (NotDetected) Ur Amphetamines Screen Not Detected (NotDetected) U Methamphetamines Scrn Not Detected (NotDetected) U Benzodiazepines Scrn Not Detected (NotDetected) Urine Cocaine Screen Not Detected (NotDetected) U Marijuana (THC) Screen Not Detected (NotDetected) Disposition <Keegan Puentes - Last Filed: 07/23/17 16:47> <Keegan Erickson - Last Filed: 07/23/17 21:14> Clinical Impression: Panic attack, Acute anxiety, Hallucinations, Parkinsons disease Disposition: ADMITTED IP TO THIS HOSP Condition: Fair Instructions: Generalized Anxiety Disorder (ED) Referrals: Pete Henriquez MD [Primary Care Provider] - 1-2 days
[2017-07-23 16:34] LABS: Basophils % (A) 1 %; Eosinophils # (A) 0.1 k/uL (0-0.7); Eosinophils % (A) 1 %; HCT 37.1 % (39.0-53.0); HGB 12.8 gm/dL (13.0-17.5); Lymphocytes # (A) 1.2 k/uL (1.0-4.8); Lymphocytes % (A) 21 %; MCH 31.2 pg (25.0-35.0); MCHC 34.5 g/dL (31.0-37.0); MCV 90.4 fL (80.0-100.0); Mean Platelet Volume 6.4; Monocytes # (A) 0.3 k/uL (0-1.0); Monocytes % (A) 6 %; Neutrophils # (A) 3.9 k/uL (1.3-7.7); Neutrophils % (A) 70 %; Platelet Count 282 k/uL (150-450); RBC 4.11 m/uL (4.30-5.90); RDW 13.3 % (11.5-15.5); WBC 5.6 k/uL (3.8-10.6)
[2017-07-23] MEDS ORDERED: HYDROcodone/APAP 5-325MG 1 EACH TAB PO STA (16:41)
[2017-07-23 16:44] LABS: ALT 32 U/L (21-72); AST 32 U/L (17-59); Alkaline Phosphatase 75 U/L (38-126); Anion Gap 11 mmol/L; Blood Urea Nitrogen 21 mg/dL (9-20); Calcium 8.8 mg/dL (8.4-10.2); Carbon Dioxide 26 mmol/L (22-30); Chloride 107 mmol/L (98-107); Glucose 96 mg/dL (74-99); Potassium 3.7 mmol/L (3.5-5.1); Sodium 144 mmol/L (137-145); Total Protein 5.8 g/dL (6.3-8.2)
[2017-07-23 17:02] LABS: Albumin 3.3 g/dL (3.5-5.0)
[2017-07-23] MEDS ORDERED: DIAZEPAM 5 MG TAB PO STA (17:14)
[2017-07-23 20:19] LABS: Amphetamine Screen,Urine Not Detected (NotDetected); Barbiturate Screen,Urine Not Detected (NotDetected); Benzodiazepines Screen,Urine Not Detected (NotDetected); Cocaine Screen,Urine Not Detected (NotDetected); Methadone Screen, Urine Not Detected (NotDetected); Opiate Screen,Urine Detected (NotDetected); Oxycodone Screen, Urine Not Detected (NotDetected); Phencyclidine Screen,Urine Not Detected (NotDetected); Tricyclic Antidepressant,Urine Not Detected (NotDetected); Urn Cannabinoid Scrn Not Detected (NotDetected)
[2017-07-23] MEDS ORDERED: HYDROcodone/APAP 10-325MG 1 EACH TAB PO ONE (20:34)
[2017-07-23] MEDS ORDERED: SODIUM CHLORIDE 0.9% 1,000 ML IV ONE (21:10)
[2017-07-23] MEDS ORDERED: ALPRAZolam 0.25 MG TAB PO PRN (21:41)
[2017-07-23] MEDS ORDERED: TAMSULOSIN 0.4 MG CAP.ER.24H PO STA (22:50)
[2017-07-23] MEDS ORDERED: QUEtiapine 25 MG TAB PO STA (22:51)
[2017-07-23] MEDS ORDERED: NIFEdipine XL 90 MG TAB.ER.24 PO STA (22:52)
[2017-07-23] MEDS: CARBIDOPA-LEVODOPA 25-100 MG 1 EACH TAB PO SCH (23:17)
[2017-07-24] MEDS: HYDROcodone/APAP 5-325MG 1 EACH TAB PO PRN ×3 (06:34→20:17)
[2017-07-24] MEDS: DOCUSATE 100 MG CAP PO SCH ×2 (08:45→21:07)
[2017-07-24] MEDS: SERTRALINE 50 MG TAB PO SCH (08:45)
[2017-07-24] MEDS: PANTOPRAZOLE 40 MG TABLET PO SCH (08:45)
[2017-07-24] MEDS: ENOXAPARIN 40 MG/0.4 ML SYRINGE SQ SCH (08:45)
[2017-07-24] MEDS: CARBIDOPA-LEVODOPA 25-100 MG 1 EACH TAB PO SCH ×4 (08:45→21:07)
[2017-07-24] MEDS: ATENOLOL 50 MG TAB PO SCH (08:48)
[2017-07-24 11:58] LABS: Glucose,Whole Blood 111 mg/dL (75-99)
[2017-07-24 12:36] VITALS: BMI 18.3
--- NOTE | 2017-07-24 14:02 | P.CONS ---
History of Present Illness - Reason for Consult Consult date: 07/24/17 Parkinson's - Chief Complaint Parkinson's with visual hallucinations - History of Present Illness Is a pleasant 67-year-old male being evaluated by the neurology service for Parkinson's disease with visual hallucinations. He was diagnosed with Parkinson 's disease sometime last year. He is a patient of Dr. Nobles. He is currently on Sinemet, with dosing unclear if its 3 or 4 times daily. He said he had been up to 6 times a day when he started to develop anxiety in these hallucinations. His dose was slowly brought down to the current level. However, he is still having issues with anxiety and visual hallucinations. He denies any severe depression or suicidal ideations. He was discharged on July 20 after her hospital course from a voluntary admission for similar symptoms. He says his current symptoms aren't as bad as bad admission. Psychiatric consultation has been placed already. At the time of my exam he is resting comfortably in bed in no acute distress. Review of Systems All systems: negative Constitutional: Reports as per HPI Past Medical History Past Medical History: Chest Pain / Angina, GERD/Reflux, Hyperlipidemia, Hypertension Additional Past Medical History / Comment(s): Parkinsons. Small hiatal hernia, diverticulosis, gastritis, low grade distal esophagitis, chronic sinusitis, low back pain and bilateral hip pain with bilateral leg weakness-has been seeing a chiropractor. History of Any Multi-Drug Resistant Organisms: None Reported Past Surgical History: Adenoidectomy, Cholecystectomy, Heart Catheterization With Stent, Orthopedic Surgery, Tonsillectomy Additional Past Surgical History / Comment(s): VASECTOMY, Circumcism, RIGHT SHOULDER arthrotomy, lasik surgery bilateral eyes, EGD's amd colonoscopies now q 5 yrs (originally had some precancerous spots in colon). Past Anesthesia/Blood Transfusion Reactions: No Reported Reaction Date of Last Stent Placement:: 11/06/2015 Past Psychological History: No Psychological Hx Reported Additional Psychological History / Comment(s): Pt resides with his spouse. 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 He is independent. Smoking Status: Former smoker Past Alcohol Use History: None Reported Additional Past Alcohol Use History / Comment(s): Patient was a smoker for 5 years 1 pack per day and quit in 1970. He denies any medical marijuana, marijuana street drug use. He drinks alcohol occasionally. He recently retired in January 2015 after 46 years as a border police. Past Drug Use History: None Reported - Past Family History Father Family Medical History: Cancer, Dementia Additional Family Medical History / Comment(s): Father at the age of 64 yrs from dementia and had bladder cancer. Mother Family Medical History: Cancer Additional Family Medical History / Comment(s): Mother at age 63 with cancer believed to start in her leg with metastatic disease to the lung and brain. Patient does not have any siblings. Patient has 2 daughters and 1 son with no major medical problems. Medications and Allergies Home Medications Medication Instructions Recorded Confirmed Type Atenolol 50 mg PO DAILY 11/06/15 07/23/17 History NIFEdipine [Adalat cc] 90 mg PO HS 11/06/15 07/23/17 History Omeprazole [PriLOSEC] 20 mg PO DAILY 11/06/15 07/23/17 History Carbidopa-Levodopa 25-100 mg 1 tab PO QID 06/09/17 07/23/17 History [Sinemet 25-100 mg] ALPRAZolam [Xanax] 0.25 mg PO BID PRN 07/17/17 07/23/17 History HYDROcodone/APAP 5-325MG [[place] 1 tab PO Q4HR PRN 07/17/17 07/23/17 History 5-325] Sertraline HCl [Zoloft] 50 mg PO DAILY 07/17/17 07/23/17 History Tamsulosin [Flomax] 0.4 mg PO HS 07/17/17 07/23/17 History Docusate [Colace] 100 mg PO BID #14 cap 07/20/17 07/23/17 Rx QUEtiapine [SEROquel] 25 mg PO HS #14 tab 07/20/17 07/23/17 Rx Allergies Allergy/AdvReac Type Severity Reaction Status Date / Time Iodinated Contrast- Oral and Allergy Unknown Verified 07/24/17 03:50 IV Dye Sulfa (Sulfonamide Allergy Anaphylaxis Verified 07/23/17 15:56 Antibiotics) Physical Exam Vitals: Vital Signs Temp Pulse Pulse Resp BP BP BP 07/24/17 11:43 67 118/69 07/24/17 08:00 20 07/24/17 06:32 96.7 F L 78 20 146/82 07/23/17 23:02 97 07/23/17 22:53 96.9 F L 97 20 145/85 07/23/17 21:55 97.6 F 67 18 148/76 07/23/17 18:46 65 18 140/77 07/23/17 16:49 16 07/23/17 15:10 98.0 F 81 18 131/86 Pulse Ox 07/24/17 11:43 97 07/24/17 08:00 07/24/17 06:32 99 07/23/17 23:02 07/23/17 22:53 97 07/23/17 21:55 97 07/23/17 18:46 97 07/23/17 16:49 07/23/17 15:10 99 Intake and Output 07/23/17 07/24/17 07/24/17 22:59 06:59 14:59 Intake Total 200 50 120 Balance 200 50 120 Intake: Oral 200 50 120 Other: Voiding Method Toilet Toilet # Voids 0 0 2 # Bowel Movements 0 Weight 63.049 kg 63.049 kg 63.049 kg - Constitutional General appearance: average body habitus, cooperative, no acute distress - EENT Eyes: no abnormal pupil, EOMI, PERRLA, no ptosis ENT: hearing grossly normal - Neck Neck: no rigidity - Respiratory Respiratory: negative: prolonged expiration, prolonged inspiration - Cardiovascular Rhythm: regular - Gastrointestinal General gastrointestinal: no distended, no tenderness - Neurologic Patient is alert awake and oriented 3. Speech and language are normal. His no facial asymmetry. He has cogwheel rigidity bilateral upper extremities. He is resting tremor of the right upper extremity. He has mild to moderate dysmetria. Mild degree of parkinsonian facies. Strength is full in bilateral upper and lower extremities. There is no sensory deficit. Results CBC & Chem 7: 07/23/17 16:24 07/23/17 16:24 Labs: Abnormal Lab Results - Last 24 Hours (Table) 07/23/17 07/23/17 07/23/17 Range/Units 16:24 16:24 20:00 RBC 4.11 L (4.30-5.90) m/uL Hgb 12.8 L (13.0-17.5) gm/dL Hct 37.1 L (39.0-53.0) % BUN 21 H (9-20) mg/dL Creatinine 0.54 L (0.66-1.25) mg/dL POC Glucose (mg/dL) (75-99) mg/dL Total Protein 5.8 L (6.3-8.2) g/dL Albumin 3.3 L (3.5-5.0) g/dL Urine Opiates Screen Detected H (NotDetected) 07/24/17 Range/Units 11:44 RBC (4.30-5.90) m/uL Hgb (13.0-17.5) gm/dL Hct (39.0-53.0) % BUN (9-20) mg/dL Creatinine (0.66-1.25) mg/dL POC Glucose (mg/dL) 111 H (75-99) mg/dL Total Protein (6.3-8.2) g/dL Albumin (3.5-5.0) g/dL Urine Opiates Screen (NotDetected) Assessment and Plan (1) Acute anxiety Current Visit: Yes Status: Acute Code(s): F41.9 - ANXIETY DISORDER, UNSPECIFIED SNOMED Code(s): 60949510 (2) Hallucinations Current Visit: Yes Status: Chronic Code(s): R44.3 - HALLUCINATIONS, UNSPECIFIED SNOMED Code(s): 1065014 (3) Panic attack Current Visit: Yes Status: Suspected Code(s): F41.0 - PANIC DISORDER [ EPISODIC PAROXYSMAL ANXIETY] SNOMED Code(s): 383811856 (4) Parkinsons disease Current Visit: Yes Status: Chronic Code(s): G20 - PARKINSON'S DISEASE SNOMED Code(s): 54786825 (5) Depression Current Visit: No Status: Chronic Code(s): F32.9 - MAJOR DEPRESSIVE DISORDER , SINGLE EPISODE, UNSPECIFIED SNOMED Code(s): 60202833 Plan: This patient with known Parkinson's disease continues to struggle with anxiety and visual hallucinations. With Parkinson's treatment this is caused by the excess dopamine. He says that hallucinations are not too disturbing in nature but the fact that he's having them is disturbing. Otherwise his Parkinson's seems well controlled. No recommendations for change in medication at this point. He should follow-up with his neurologist. Agree with psychiatric consultation. No further neurological workup is warranted. He is cleared from a neurological standpoint. We can be called on as-needed basis for any changes neurological status. I have performed a history and physical on the above patient. I have reviewed the above note, and agree.
--- NOTE | 2017-07-24 15:18 | P.CN ---
Psychiatric Consult - . Consult date: 07/24/17 Consult:: 07/24/17 15:02 Patient was seen for a psych consult regarding anxiety. Patient has severe Parkinson's disease and is on Sinemet 25-100 4 times a day. he is also on not cope ER and Seroquel 50 mg a day and Zoloft 50 mg a day Flomax 0.4 mg at bedtime Protonix Procardia Lovenox Colace atenolol and Xanax 0.25 mg twice a day when necessary. Patient reports of visual hallucinations in which he sees animals and other objects like in a movie strip. He denies auditory hallucinations. He says he gets nervous and shaky often. He denies suicidal and homicidal ideas. He was recently in psychiatric unit for reported psychotic symptoms. This is a white male who was seen in his bed. He has quite a bit of resting tremors of fingers and elbows etc. otherwise he is friendly and cheerful. Speech is spontaneous and goal-directed. Mood is cheerful and affect is appropriate. He denies suicidal and homicidal ideas. He is well oriented with adequate memory. His insight and judgment appear to be adequate. Assessment: Parkinson's disease with continued resting tremors. Parkinson's disease associated visual hallucinations versus Sinemet induced hallucination. Suggestions: 1. Review the dose of Sinemet and adjust as necessary. Review the anti- Parkinson's management and try to optimize the treatment and reduce tremors 2. Try Requip 0.25 mg 3 times a day, adjust the dose as necessary. 3. Consider long-acting anti-Parkinson's medications instead of Sinemet which will have breakaway tremors. 4. Can consider increasing the dose of Xanax for anxiety on a when necessary basis. 5. Use of Seroquel can make Parkinson's symptoms worse from its dopamine depleting actions. So, Seroquel and any psychotropic medication that can decrease dopamine level should be discontinued unless it is absolutely necessary. 6. Patient needs to follow up closely with his neurologist for better management of Parkinson's disease.
--- NOTE | 2017-07-24 16:38 | P.HPIM ---
History of Present Illness H&P Date: 07/24/17 67 years old male with past medical history coronary artery disease status post stent placement in 2016, history of chronic sinusitis, low back bilaterally hip pain, history of hyperlipidemia, hypertension presents in with acute onset of hallucination involving constant visualization of CARTOONS that started a few days ago. Patient was last admitted on 07/17 for hallucination and delusions which improved after initiation of medication. Patient was diagnosed to have anxiety, Parkinson disease associated psychosis and was initiated on seroquel and zoloft. Symptoms improved for 2 day but came back again. Currently Dr. Nobles is managing patient's Parkinson medication and is constantly coming down on Sinemet to reduce his symptoms. Patient will follow with neurology as outpatient. Psychiatry recommended with the current regimen. Review of Systems Constitutional: Denies chills, Denies fever, Denies lethargy, Denies malaise, Denies poor appetite, Denies weakness, Denies weight loss Eyes: denies decreased vision, denies diplopia, denies discharge, denies pain Ears: deny: decreased hearing Ears, nose, mouth and throat: Denies dental pain, Denies headache, Denies nasal discharge, Denies nose pain Cardiovascular: Denies chest pain, Denies decreased exercise tolerance, Denies edema, Denies high blood pressure, Denies irregular heart beat, Denies palpitations, Denies paroxysmal nocturnal dyspnea, Denies rapid heart beat, Denies shortness of breath Respiratory: Denies congestion, Denies cough, Denies cough with sputum, Denies dyspnea, Denies home oxygen, Denies wheezing Gastrointestinal: Denies abdominal pain, Denies change in bowel habits, Denies coffee ground emesis, Denies early satiety, Denies excessive gas, Denies heartburn, Denies hematemesis, Denies hematochezia, Denies loss of appetite, Denies nausea, Denies vomiting Genitourinary: Denies dysuria, Denies flank pain, Denies kidney stones, Denies menorrhagia, Denies urgency, Denies urinary frequency Musculoskeletal: Denies gait dysfunction, Denies limitation of motion, Denies morning stiffness, Denies muscle cramps Integumentary: Denies rash, Denies wounds, Denies brittle nails, Denies change in hair/nails, Denies darkening of skin Neurological: Endorses balance difficulties with fear of fall, Denies change in speech, Denies double vision, Denies gait dysfunction, Denies loss of vision , Denies motor disturbance, Denies numbness, Denies paralysis, Denies paresthesias, Denies seizures, constant tremor Psychiatric: Denies anxiety, Denies depression Endocrine: Denies excessive sweating, Denies excessive thirst, Denies high blood sugars, Denies palpitations Hematologic/Lymphatic: Denies easy bruising, Denies lymphadenopathy Past Medical History Past Medical History: Chest Pain / Angina, GERD/Reflux, Hyperlipidemia, Hypertension Additional Past Medical History / Comment(s): Parkinsons. Small hiatal hernia, diverticulosis, gastritis, low grade distal esophagitis, chronic sinusitis, low back pain and bilateral hip pain with bilateral leg weakness-has been seeing a chiropractor. History of Any Multi-Drug Resistant Organisms: None Reported Past Surgical History: Adenoidectomy, Cholecystectomy, Heart Catheterization With Stent, Orthopedic Surgery, Tonsillectomy Additional Past Surgical History / Comment(s): VASECTOMY, Circumcism, RIGHT SHOULDER arthrotomy, lasik surgery bilateral eyes, EGD's amd colonoscopies now q 5 yrs (originally had some precancerous spots in colon). Past Anesthesia/Blood Transfusion Reactions: No Reported Reaction Date of Last Stent Placement:: 11/06/2015 Past Psychological History: No Psychological Hx Reported, Anxiety, Panic Disorder Additional Psychological History / Comment(s): Pt resides with his spouse. 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 He is independent. Smoking Status: Former smoker Past Alcohol Use History: None Reported Additional Past Alcohol Use History / Comment(s): Patient was a smoker for 5 years 1 pack per day and quit in 1970. He denies any medical marijuana, marijuana street drug use. He drinks alcohol occasionally. 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 Past Drug Use History: None Reported - Past Family History Father Family Medical History: Cancer, Dementia Additional Family Medical History / Comment(s): Father at the age of 64 yrs from dementia and had bladder cancer. Mother Family Medical History: Cancer Additional Family Medical History / Comment(s): Mother at age 63 with cancer believed to start in her leg with metastatic disease to the lung and brain. Patient does not have any siblings. Patient has 2 daughters and 1 son with no major medical problems. Medications and Allergies Home Medications Medication Instructions Recorded Confirmed Type Atenolol 50 mg PO DAILY 11/06/15 07/23/17 History NIFEdipine [Adalat cc] 90 mg PO HS 11/06/15 07/23/17 History Omeprazole [PriLOSEC] 20 mg PO DAILY 11/06/15 07/23/17 History Carbidopa-Levodopa 25-100 mg 1 tab PO QID 06/09/17 07/23/17 History [Sinemet 25-100 mg] ALPRAZolam [Xanax] 0.25 mg PO BID PRN 07/17/17 07/23/17 History HYDROcodone/APAP 5-325MG [[place] 1 tab PO Q4HR PRN 07/17/17 07/23/17 History 5-325] Sertraline HCl [Zoloft] 50 mg PO DAILY 07/17/17 07/23/17 History Tamsulosin [Flomax] 0.4 mg PO HS 07/17/17 07/23/17 History Docusate [Colace] 100 mg PO BID #14 cap 07/20/17 07/23/17 Rx QUEtiapine [SEROquel] 25 mg PO HS #14 tab 07/20/17 07/23/17 Rx Allergies Allergy/AdvReac Type Severity Reaction Status Date / Time Iodinated Contrast- Oral and Allergy Unknown Verified 07/24/17 03:50 IV Dye Sulfa (Sulfonamide Allergy Anaphylaxis Verified 07/23/17 15:56 Antibiotics) Physical Exam Vitals: Vital Signs Temp Pulse Pulse Resp BP BP BP 07/24/17 11:43 67 118/69 07/24/17 08:00 20 07/24/17 06:32 96.7 F L 78 20 146/82 07/23/17 23:02 97 07/23/17 22:53 96.9 F L 97 20 145/85 07/23/17 21:55 97.6 F 67 18 148/76 07/23/17 18:46 65 18 140/77 07/23/17 16:49 16 07/23/17 15:10 98.0 F 81 18 131/86 Pulse Ox 07/24/17 11:43 97 07/24/17 08:00 07/24/17 06:32 99 07/23/17 23:02 07/23/17 22:53 97 07/23/17 21:55 97 07/23/17 18:46 97 07/23/17 16:49 07/23/17 15:10 99 Intake and Output 07/23/17 07/24/17 07/24/17 22:59 06:59 14:59 Intake Total 200 50 120 Balance 200 50 120 Intake: Oral 200 50 120 Other: Voiding Method Toilet Toilet # Voids 0 0 2 # Bowel Movements 0 Weight 63.049 kg 63.049 kg 63.049 kg - Constitutional General appearance: cooperative, no acute distress, obese - EENT Eyes: anicteric sclerae, PERRLA, normal appearance ENT: hearing grossly normal - Neck Neck: no lymphadenopathy, normal ROM, no other, no rigidity, no stridor, no thyromegaly - Respiratory Respiratory: bilateral: CTA, negative: diminished, dullness, rales, rhonchi - Cardiovascular Rhythm: regular Heart sounds: normal: S1, S2 Abnormal Heart Sounds: no systolic murmur, no diastolic murmur, no rub, no S3 Gallop, no S4 Gallop, no click, no other - Gastrointestinal General gastrointestinal: normal bowel sounds, soft - Integumentary Integumentary: no rash - Neurologic Neurologic: CNII-XII intact, constant tremor involving the right arm - Musculoskeletal Musculoskeletal: strength equal bilaterally, needs asistance to come out of the bed - Psychiatric Psychiatric: A&O x's 3, appropriate affect Results CBC & Chem 7: 07/23/17 16:24 07/23/17 16:24 Labs: Abnormal Lab Results - Last 24 Hours (Table) 07/23/17 07/23/17 07/23/17 Range/Units 16:24 16:24 20:00 RBC 4.11 L (4.30-5.90) m/uL Hgb 12.8 L (13.0-17.5) gm/dL Hct 37.1 L (39.0-53.0) % BUN 21 H (9-20) mg/dL Creatinine 0.54 L (0.66-1.25) mg/dL POC Glucose (mg/dL) (75-99) mg/dL Total Protein 5.8 L (6.3-8.2) g/dL Albumin 3.3 L (3.5-5.0) g/dL Urine Opiates Screen Detected H (NotDetected) 07/24/17 Range/Units 11:44 RBC (4.30-5.90) m/uL Hgb (13.0-17.5) gm/dL Hct (39.0-53.0) % BUN (9-20) mg/dL Creatinine (0.66-1.25) mg/dL POC Glucose (mg/dL) 111 H (75-99) mg/dL Total Protein (6.3-8.2) g/dL Albumin (3.5-5.0) g/dL Urine Opiates Screen (NotDetected) Thrombosis Risk Factor Assmnt - DVT/VTE Prophylaxis DVT/VTE Prophylaxis: Pharmacologic Prophylaxis ordered - Choose All That Apply Any of the Below Risk Factors Present?: Yes Each Risk Factor Represents 2 Points: Age 61-74 years Thrombosis Risk Factor Assessment Total Risk Factor Score: 2 Thrombosis Risk Factor Assessment Level: Low Risk Assessment and Plan Plan: #1 patient has hallucinations likely secondary to antiparkinson medications. Dr. Giuliano prince Sinemet as outpatient. We will hold starting patient on another dopamine agonist as it might worsen his symptoms.Seroquel has been shown in multiple researchers and review article to show improvement in patient' s psychosis though it has to be monitored as it also has dopamine antagonist effects. Continue Seroquel 50 mg at bedtime. Psychiatry and neurology consult placed #2 history of coronary artery disease status post stent. Continue atenolol #3 hypertension continue nifedipine 90 mg daily at bedtime #4 DVTcontinue Flomax 0.4 mg at bedtime #5 anxiety continue Xanax 0.5 mg twice daily as needed along with Zoloft. #6 disposition social worker school consulted for placement of the patient and provided information on assisted living facilities. Likely discharge tomorrow
[2017-07-24] MEDS ORDERED: TAMSULOSIN 0.4 MG CAP.ER.24H PO SCH (21:00)
[2017-07-24] MEDS ORDERED: NIFEdipine XL 90 MG TAB.ER.24 PO SCH (21:00)
[2017-07-24] MEDS ORDERED: QUEtiapine 25 MG TAB PO SCH (22:00)
[2017-07-24] MEDS ORDERED: QUEtiapine 50 MG TAB PO SCH (22:00)
[2017-07-25 01:41] VITALS: RESP 20
[2017-07-25 07:10] VITALS: BP 130/75; PULSE 79; TEMP 98.8
[2017-07-25] MEDS: PANTOPRAZOLE 40 MG TABLET PO SCH (08:11)
[2017-07-25] MEDS: SERTRALINE 50 MG TAB PO SCH (08:11)
[2017-07-25] MEDS: DOCUSATE 100 MG CAP PO SCH (08:12)
[2017-07-25] MEDS: ATENOLOL 50 MG TAB PO SCH (08:12)
[2017-07-25] MEDS: CARBIDOPA-LEVODOPA 25-100 MG 1 EACH TAB PO SCH ×2 (08:12→13:11)
[2017-07-25] MEDS: ENOXAPARIN 40 MG/0.4 ML SYRINGE SQ SCH (08:12)
[2017-07-25] MEDS: HYDROcodone/APAP 5-325MG 1 EACH TAB PO PRN ×2 (08:24→13:11)
--- NOTE | 2017-07-25 16:13 | P.DS ---
Providers Date of admission: 07/23/17 21:10 Attending physician: Maribel Wild MD Consults: 07/23/17 21:10 Consult Physician Routine Consulting Provider: Thomas Henriquez Consult Reason/Comments: parkinsons Do you want consulting provider notified?: Yes 07/24/17 12:16 Consult Physician Routine Consulting Provider: Lashay Burnett Consult Reason/Comments: worsening delusion and anxiety Do you want consulting provider notified?: Yes Primary care physician: [facility] Course: 67 years old male with past medical history coronary artery disease status post stent placement in 2016, history of chronic sinusitis, low back bilaterally hip pain, history of hyperlipidemia, hypertension presents in with acute onset of hallucination involving constant visualization of CARTOONS that started a few days ago. Patient was last admitted on 07/17 for hallucination and delusions which improved after initiation of medication. Patient was diagnosed to have anxiety, Parkinson disease associated psychosis and was initiated on seroquel and zoloft. Symptoms improved for 2 day but came back again. Currently Dr. Nobles is managing patient's Parkinson medication and is constantly coming down on Sinemet to reduce his symptoms. Patient will follow with neurology as outpatient. Psychiatry recommended with the current regimen. 07/25 patient feels better than yesterday. He denies any hallucinations since the initiation of seroquel. He will follow with Dr. Mireles as outpatient for his Parkinson disease. Patient given contact from assisted living facilities and was setup with home care on discharge. COntinue sinement Discharge diagnoses #1 Hallucinations likely secondary to antiparkinson medications #2 history of coronary artery disease status post stent #3 hypertension #4 BPH #5 anxiety DIsposition - Home with home care cc a copy of Discharge to Dr. Rivera Patient Condition at Discharge: Fair Plan - Discharge Summary New Discharge Prescriptions: New QUEtiapine [SEROquel] 50 mg PO Q24H #30 tab Continue Omeprazole [PriLOSEC] 20 mg PO DAILY Atenolol 50 mg PO DAILY NIFEdipine [Adalat cc] 90 mg PO HS HYDROcodone/APAP 5-325MG [[place] 5-325] 1 tab PO Q4HR PRN PRN Reason: Pain ALPRAZolam [Xanax] 0.25 mg PO BID PRN PRN Reason: Anxiety Tamsulosin [Flomax] 0.4 mg PO HS Sertraline HCl [Zoloft] 50 mg PO DAILY Docusate [Colace] 100 mg PO BID #14 cap Changed Carbidopa-Levodopa 25-100 mg [Sinemet 25-100 mg] 1 tab PO TID #0 QUEtiapine [SEROquel] 50 mg PO HS #14 tab Discharge Medication List Atenolol 50 mg PO DAILY 11/06/15 [History] NIFEdipine [Adalat cc] 90 mg PO HS 11/06/15 [History] Omeprazole [PriLOSEC] 20 mg PO DAILY 11/06/15 [History] ALPRAZolam [Xanax] 0.25 mg PO BID PRN 07/17/17 [History] HYDROcodone/APAP 5-325MG [[place] 5-325] 1 tab PO Q4HR PRN 07/17/17 [History] Sertraline HCl [Zoloft] 50 mg PO DAILY 07/17/17 [History] Tamsulosin [Flomax] 0.4 mg PO HS 07/17/17 [History] Docusate [Colace] 100 mg PO BID #14 cap 07/20/17 [Rx] Carbidopa-Levodopa 25-100 mg [Sinemet 25-100 mg] 1 tab PO TID #0 07/25/17 [Rx] QUEtiapine [SEROquel] 50 mg PO HS #14 tab 07/25/17 [Rx] QUEtiapine [SEROquel] 50 mg PO Q24H #30 tab 07/25/17 [Rx] Follow up Appointment(s)/Referral(s): [facility], [NON-STAFF] - 1 Week Pete Henriquez MD [Primary Care Provider] - 1-2 days Patient Instructions/Handouts: Generalized Anxiety Disorder (ED) Discharge Disposition: HOME WITH HOME HEALTH SERVICES
== END 2017-07-25 14:14 | disposition home health service (06) ==
LOC: EC 13:56 → 4MS4W 21:10
PROVIDERS: ADMIT Internal Medicine; ATTEND Internal Medicine
DX: R44.1 Visual hallucinations (principal); G20 Parkinson's disease; F41.0 Panic disorder [episodic paroxysmal anxiety]; F32.9 Major depressive disorder, single episode, unspecified; I25.10 Atherosclerotic heart disease of native coronary artery without angina pectoris; Z95.5 Presence of coronary angioplasty implant and graft; I10 Essential (primary) hypertension; N40.0 Benign prostatic hyperplasia without lower urinary tract symptoms; E78.5 Hyperlipidemia, unspecified; K21.9 Gastro-esophageal reflux disease without esophagitis; K57.90 Diverticulosis of intestine, part unspecified, without perforation or abscess without bleeding; M54.5 Low back pain; M25.552 Pain in left hip; R53.1 Weakness; M25.551 Pain in right hip; Z79.899 Other long term (current) drug therapy; Z88.2 Allergy status to sulfonamides; Z87.891 Personal history of nicotine dependence; Z80.52 Family history of malignant neoplasm of bladder; Z80.8 Family history of malignant neoplasm of other organs or systems; Z87.19 Personal history of other diseases of the digestive system; Z81.8 Family history of other mental and behavioral disorders
CPT/HCPCS: 99285 ×2; 96360; 96361 ×2; 96372 ×2; 82075; 36415; 80053; 85025; 80306; G0378 ×3; J1650 ×2

== ENCOUNTER 2017-07-30 13:31 | Emergency (ER) | payer MEDICARE ==
[2017-07-30] MEDS ORDERED: SODIUM CHLORIDE 0.9% 1,000 ML IV STA ×2 (13:37)
--- NOTE | 2017-07-30 13:40 | ED ---
Syncope HPI - General Stated Complaint: fall Time Seen by Provider: 07/30/17 13:31 Source: patient, EMS, RN notes reviewed, old records reviewed Mode of arrival: EMS - History of Present Illness Initial Comments: This is a 67-year-old male with a history of parkinsonism with 2 recent admissions to the hospital 14 psychosis and 14 Parkinson's exacerbation who states he was on a toilet cleaning himself up and possibly straining have another bowel movement when he fell off the toilet. He get dizzy and weak he has been feeling weak recently. He states the does not eat very much. He's had a 70 pound weight loss about the last year to year and a half. He denies any fevers chills sweats cough no head or neck or back pain. He believes his Parkinson disease is worse. No other symptoms or complaints at this time he does not believe he totally passed out. He was brought in by EMS. MD Complaint: collapsed - Related Data Home Medications Medication Instructions Recorded Confirmed Atenolol 50 mg PO DAILY 11/06/15 07/30/17 NIFEdipine [Adalat cc] 90 mg PO HS 11/06/15 07/30/17 Omeprazole [PriLOSEC] 20 mg PO DAILY 11/06/15 07/30/17 ALPRAZolam [Xanax] 0.25 mg PO BID PRN 07/17/17 07/30/17 HYDROcodone/APAP 5-325MG [[place] 1 tab PO Q4HR PRN 07/17/17 07/30/17 5-325] Sertraline HCl [Zoloft] 50 mg PO DAILY 07/17/17 07/30/17 Tamsulosin [Flomax] 0.4 mg PO HS 07/17/17 07/30/17 Previous Rx's Medication Instructions Recorded Docusate [Colace] 100 mg PO BID #14 cap 07/20/17 Carbidopa-Levodopa 25-100 mg 1 tab PO TID #0 07/25/17 [Sinemet 25-100 mg] QUEtiapine [SEROquel] 50 mg PO HS #14 tab 07/25/17 QUEtiapine [SEROquel] 50 mg PO Q24H #30 tab 07/25/17 Allergies Allergy/AdvReac Type Severity Reaction Status Date / Time diphenhydramine Allergy Unknown Verified 07/30/17 14:34 [From Advil PM] ibuprofen [From Advil PM] Allergy Unknown Verified 07/30/17 14:34 Iodinated Contrast- Oral and Allergy Unknown Verified 07/30/17 14:32 IV Dye Sulfa (Sulfonamide Allergy Anaphylaxis Verified 07/30/17 14:32 Antibiotics) Review of Systems ROS Statement: Those systems with pertinent positive or pertinent negative responses have been documented in the HPI. ROS Other: All systems not noted in ROS Statement are negative. Past Medical History Past Medical History: Chest Pain / Angina, GERD/Reflux, Hyperlipidemia, Hypertension Additional Past Medical History / Comment(s): Parkinsons. Small hiatal hernia, diverticulosis, gastritis, low grade distal esophagitis, chronic sinusitis, low back pain and bilateral hip pain with bilateral leg weakness-has been seeing a chiropractor. History of Any Multi-Drug Resistant Organisms: None Reported Past Surgical History: Adenoidectomy, Cholecystectomy, Heart Catheterization With Stent, Orthopedic Surgery, Tonsillectomy Additional Past Surgical History / Comment(s): VASECTOMY, Circumcism, RIGHT SHOULDER arthrotomy, lasik surgery bilateral eyes, EGD's amd colonoscopies now q 5 yrs (originally had some precancerous spots in colon). Past Anesthesia/Blood Transfusion Reactions: No Reported Reaction Date of Last Stent Placement:: 11/06/2015 Past Psychological History: No Psychological Hx Reported, Anxiety, Panic Disorder Additional Psychological History / Comment(s): Pt resides with his spouse. 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 He is independent. Smoking Status: Former smoker Past Alcohol Use History: None Reported Additional Past Alcohol Use History / Comment(s): Patient was a smoker for 5 years 1 pack per day and quit in 1970. He denies any medical marijuana, marijuana street drug use. He drinks alcohol occasionally. 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 Past Drug Use History: None Reported - Past Family History Father Family Medical History: Cancer, Dementia Additional Family Medical History / Comment(s): Father at the age of 64 yrs from dementia and had bladder cancer. Mother Family Medical History: Cancer Additional Family Medical History / Comment(s): Mother at age 63 with cancer believed to start in her leg with metastatic disease to the lung and brain. Patient does not have any siblings. Patient has 2 daughters and 1 son with no major medical problems. General Exam - General Exam Comments Initial Comments: This is a well-developed well-nourished awake alert oriented times female he does demonstrate shaking of his extremities especially the right upper extremity Limitations: physical limitation General appearance: alert, in no apparent distress Head exam: Present: atraumatic, normocephalic, normal inspection Eye exam: Present: normal appearance, PERRL, EOMI. Absent: scleral icterus, conjunctival injection, periorbital swelling ENT exam: Present: mucous membranes dry Neck exam: Present: normal inspection. Absent: tenderness, meningismus, lymphadenopathy Respiratory exam: Present: normal lung sounds bilaterally. Absent: respiratory distress, wheezes, rales, rhonchi, stridor Cardiovascular Exam: Present: regular rate, normal rhythm, normal heart sounds. Absent: systolic murmur, diastolic murmur, rubs, gallop, clicks GI/Abdominal exam: Present: soft, normal bowel sounds. Absent: distended, tenderness, guarding, rebound, rigid Extremities exam: Present: full ROM, normal capillary refill, other ( Extremities upper extremity specialist in the right is noted consistent with Parkinson's). Absent: tenderness, pedal edema, joint swelling, calf tenderness Back exam: Present: normal inspection Neurological exam: Present: alert, oriented X3, CN II-XII intact, motor sensory deficit Psychiatric exam: Present: normal mood, flat affect Skin exam: Present: warm, dry, intact, normal color. Absent: rash Course Vital Signs 07/30/17 07/30/17 07/30/17 13:33 15:38 16:53 Temperature 97.0 F L Pulse Rate 75 69 Pulse Rate [ 77 Sitting] Pulse Rate [ 66 Supine] Respiratory 16 18 Rate Blood Pressure 145/71 136/65 Blood Pressure 147/75 [Sitting] Blood Pressure 120/62 [Supine] O2 Sat by Pulse 97 98 Oximetry 07/30/17 17:14 Temperature 97.9 F Pulse Rate Pulse Rate [ Sitting] Pulse Rate [ Supine] Respiratory Rate Blood Pressure Blood Pressure [Sitting] Blood Pressure [Supine] O2 Sat by Pulse Oximetry EKG Findings - EKG Results: EKG: interpreted by LINDA, sinus rhythm (Sinus rhythm a 75. Interval 124 QRS duration 106 QT since QTC of 42/440 8H complete right bundle-branch block junctional ST depression artifact is present) Medical Decision Making - Medical Decision Making I did a long session with patient family member. Patient was able ambulate without difficulty. He will be discharged presentation is consistent with dehydration and orthostatic episode. - Lab Data Result diagrams: 07/30/17 13:47 07/30/17 13:47 Lab Results 07/30/17 07/30/17 07/30/17 Range/Units 13:42 13:47 13:47 WBC (3.8-10.6) k/uL RBC (4.30-5.90) m/uL Hgb (13.0-17.5) gm/dL Hct (39.0-53.0) % MCV (80.0-100.0) fL MCH (25.0-35.0) pg MCHC (31.0-37.0) g/dL RDW (11.5-15.5) % Plt Count (150-450) k/uL Neutrophils % % Lymphocytes % % Monocytes % % Eosinophils % % Basophils % % Neutrophils # (1.3-7.7) k/uL Lymphocytes # (1.0-4.8) k/uL Monocytes # (0-1.0) k/uL Eosinophils # (0-0.7) k/uL Basophils # (0-0.2) k/uL Sodium 144 (137-145) mmol/L Potassium 3.9 (3.5-5.1) mmol/L Chloride 107 (98-107) mmol/L Carbon Dioxide 27 (22-30) mmol/L Anion Gap 10 mmol/L BUN 17 (9-20) mg/dL Creatinine 0.60 L (0.66-1.25) mg/dL Est GFR (CKD-EPI)AfAm >90 (>60 ml/min/1.73 sqM) Est GFR (CKD-EPI)NonAf >90 (>60 ml/min/1.73 sqM) Glucose 157 H (74-99) mg/dL POC Glucose (mg/dL) 150 H (75-99) mg/dL POC Glu Mechanical Project Manager ID Sandyaid, Beata Calcium 9.1 (8.4-10.2) mg/dL Magnesium 1.9 (1.6-2.3) mg/dL Total Bilirubin 0.8 (0.2-1.3) mg/dL AST 18 (17-59) U/L ALT 29 (21-72) U/L Alkaline Phosphatase 60 (38-126) U/L Total Creatine Kinase 33 L (55-170) U/L CK-MB (CK-2) 1.6 (0.0-2.4) ng/mL CK-MB (CK-2) Rel Index 4.8 Total Protein 5.8 L (6.3-8.2) g/dL Albumin 3.4 L (3.5-5.0) g/dL Amylase 38 (30-110) U/L Lipase 61 (23-300) U/L 07/30/17 Range/Units 13:47 WBC 4.2 (3.8-10.6) k/uL RBC 4.11 L (4.30-5.90) m/uL Hgb 12.7 L (13.0-17.5) gm/dL Hct 37.0 L (39.0-53.0) % MCV 90.0 (80.0-100.0) fL MCH 30.9 (25.0-35.0) pg MCHC 34.3 (31.0-37.0) g/dL RDW 13.4 (11.5-15.5) % Plt Count 261 (150-450) k/uL Neutrophils % 67 % Lymphocytes % 22 % Monocytes % 6 % Eosinophils % 2 % Basophils % 0 % Neutrophils # 2.9 (1.3-7.7) k/uL Lymphocytes # 0.9 L (1.0-4.8) k/uL Monocytes # 0.3 (0-1.0) k/uL Eosinophils # 0.1 (0-0.7) k/uL Basophils # 0.0 (0-0.2) k/uL Sodium (137-145) mmol/L Potassium (3.5-5.1) mmol/L Chloride (98-107) mmol/L Carbon Dioxide (22-30) mmol/L Anion Gap mmol/L BUN (9-20) mg/dL Creatinine (0.66-1.25) mg/dL Est GFR (CKD-EPI)AfAm (>60 ml/min/1.73 sqM) Est GFR (CKD-EPI)NonAf (>60 ml/min/1.73 sqM) Glucose (74-99) mg/dL POC Glucose (mg/dL) (75-99) mg/dL POC Glu Mechanical Project Manager ID Calcium (8.4-10.2) mg/dL Magnesium (1.6-2.3) mg/dL Total Bilirubin (0.2-1.3) mg/dL AST (17-59) U/L ALT (21-72) U/L Alkaline Phosphatase (38-126) U/L Total Creatine Kinase (55-170) U/L CK-MB (CK-2) (0.0-2.4) ng/mL CK-MB (CK-2) Rel Index Total Protein (6.3-8.2) g/dL Albumin (3.5-5.0) g/dL Amylase (30-110) U/L Lipase (23-300) U/L - Radiology Data Radiology results: report reviewed (I did review the imaging and report no acute findings.), image reviewed Disposition Clinical Impression: Orthostatic hypotension, Dehydration, Vasovagal episode Disposition: HOME SELF-CARE Condition: Good Instructions: Dehydration (ED), Near Syncope (ED) Referrals: Pete Henriquez MD [Primary Care Provider] - 1-2 days
[2017-07-30 13:44] LABS: Glucose,Whole Blood 150 mg/dL (75-99)
[2017-07-30 14:04] LABS: Basophils % (A) 0 %; Eosinophils # (A) 0.1 k/uL (0-0.7); Eosinophils % (A) 2 %; HGB 12.7 gm/dL (13.0-17.5); Lymphocytes # (A) 0.9 k/uL (1.0-4.8); Lymphocytes % (A) 22 %; MCH 30.9 pg (25.0-35.0); MCHC 34.3 g/dL (31.0-37.0); Mean Platelet Volume 6.6; Monocytes # (A) 0.3 k/uL (0-1.0); Monocytes % (A) 6 %; Neutrophils # (A) 2.9 k/uL (1.3-7.7); Neutrophils % (A) 67 %; Platelet Count 261 k/uL (150-450); RBC 4.11 m/uL (4.30-5.90); RDW 13.4 % (11.5-15.5); WBC 4.2 k/uL (3.8-10.6)
[2017-07-30 14:13] LABS: ALT 29 U/L (21-72); AST 18 U/L (17-59); Albumin 3.4 g/dL (3.5-5.0); Alkaline Phosphatase 60 U/L (38-126); Amylase 38 U/L (30-110); Anion Gap 10 mmol/L; Blood Urea Nitrogen 17 mg/dL (9-20); Calcium 9.1 mg/dL (8.4-10.2); Carbon Dioxide 27 mmol/L (22-30); Chloride 107 mmol/L (98-107); Glucose 157 mg/dL (74-99); Lipase 61 U/L (23-300); Magnesium 1.9 mg/dL (1.6-2.3); Potassium 3.9 mmol/L (3.5-5.1); Sodium 144 mmol/L (137-145); Total Bilirubin 0.8 mg/dL (0.2-1.3); Total Protein 5.8 g/dL (6.3-8.2)
--- NOTE | 2017-07-30 14:27 | XR ---
EXAMINATION TYPE: XR chest 2V DATE OF EXAM: 07/30/2017 COMPARISON: 11/19/2015 HISTORY: Shortness of breath TECHNIQUE: Frontal and lateral views of the chest are obtained. FINDINGS: Scattered senescent parenchymal changes noted. Hyperinflation compatible with COPD. No evidence for infiltrate. No evidence for atelectasis. Heart size is stable. Mediastinal structures are stable and grossly unremarkable. No evidence for hilar prominence. Degenerative changes dorsal spine. IMPRESSION: 1. No evidence for acute pulmonary disease.
--- NOTE | 2017-07-30 14:28 | XR ---
EXAMINATION TYPE: XR abdomen 1V DATE OF EXAM: 07/30/2017 COMPARISON: NONE HISTORY: Pain TECHNIQUE: Single supine KUB image of the abdomen is obtained FINDINGS: Small bowel demonstrates no evidence for dilatation or air fluid levels. Gas and fecal material is seen in non-distended colon. No convincing evidence for pneumoperitoneum. No unusual calcifications. The lung bases are clear. The osseous structures are intact. IMPRESSION: 1. Overall nonobstructive bowel gas pattern.
[2017-07-30 14:59] LABS: Creatine Kinase MB 1.6 ng/mL (0.0-2.4)
[2017-07-30] MEDS ORDERED: LORazepam 2 MG/ML INJ IV STA (15:14)
[2017-07-30] MEDS ORDERED: HYDROcodone/APAP 5-325MG 1 EACH TAB PO STA (15:21)
[2017-07-30 15:57] VITALS: RESP 18
[2017-07-30 16:54] VITALS: BP 120/62; PULSE 66
[2017-07-30 17:15] VITALS: TEMP 97.9
== END 2017-07-30 17:14 | disposition home or self-care (01) ==
LOC: EC 13:31
DX: I95.1 Orthostatic hypotension (principal); E86.0 Dehydration; K21.9 Gastro-esophageal reflux disease without esophagitis; I10 Essential (primary) hypertension; F41.0 Panic disorder [episodic paroxysmal anxiety]; Z87.891 Personal history of nicotine dependence; Z79.899 Other long term (current) drug therapy; Z88.2 Allergy status to sulfonamides; Z88.6 Allergy status to analgesic agent; Z91.041 Radiographic dye allergy status; Z88.8 Allergy status to other drugs, medicaments and biological substances
CPT/HCPCS: 36415; 93005; 80053; 82150; 82550; 82553; 83690; 83735; 85025; 71046; 74018; 99284; 96374; 96361 ×3; J2060

== ENCOUNTER 2017-09-01 11:42 | Observation (INO) | payer MEDICARE ==
[2017-09-01] MEDS ORDERED: NITROGLYCERIN OINT 1 INCH/GM PACKET TOPICAL STA (11:49)
--- NOTE | 2017-09-01 11:52 | ED ---
General Adult HPI - General Stated complaint: chest pain Time Seen by Provider: 09/01/17 11:42 Source: RN notes reviewed - History of Present Illness Initial comments: This is a 67-year-old male with past medical history significant for Parkinson' s and a coronary artery disease with a stent in his arteries. Patient comes in today because he started expressing chest pain 945. Patient states he took one nitroglycerin without any relief. Patient states he took a second nitroglycerin and it started to improve his chest pain. Patient states associated with this chest pain with radiation of the pain up into his jaw as well as some shortness of breath. All of which is now resolved. Patient denies any diaphoresis. Patient denies any nausea. Patient denies any recent fever chills or cough. Patient denies any abdominal pain patient denies any back pain. Patient denies any headache patient denies numbness weakness. Patient denies being lightheaded dizzy or having any near syncopal episode. Patient denies any swelling to the legs or calf tenderness. - Related Data Home Medications Medication Instructions Recorded Confirmed Atenolol 50 mg PO HS 11/06/15 09/01/17 NIFEdipine [Adalat cc] 90 mg PO HS 11/06/15 09/01/17 Omeprazole [PriLOSEC] 20 mg PO DAILY 11/06/15 09/01/17 ALPRAZolam [Xanax] 0.25 mg PO QA 07/17/17 09/01/17 Sertraline HCl [Zoloft] 50 mg PO DAILY 07/17/17 09/01/17 Tamsulosin [Flomax] 0.4 mg PO HS 07/17/17 09/01/17 ALPRAZolam [Xanax] 0.25 mg PO DIRECTED PRN 09/01/17 09/01/17 Carbidopa-Levodopa 25-100 mg 1 tab PO TID@07,12,09/01/17 09/01/17 [Sinemet 25-100 mg] Memantine [Namenda] 10 mg PO DIRECTED 09/01/17 09/01/17 Sennosides [Senna] 8.6 mg PO HS PRN 09/01/17 09/01/17 clonazePAM [KlonoPIN] 0.25 mg PO HS 09/01/17 09/01/17 Previous Rx's Medication Instructions Recorded QUEtiapine [SEROquel] 50 mg PO HS #14 tab 07/25/17 Allergies Allergy/AdvReac Type Severity Reaction Status Date / Time diphenhydramine Allergy Unknown Verified 09/01/17 12:24 [From Advil PM] ibuprofen [From Advil PM] Allergy Unknown Verified 09/01/17 12:24 Iodinated Contrast- Oral and Allergy Unknown Verified 09/01/17 12:24 IV Dye Sulfa (Sulfonamide Allergy Anaphylaxis Verified 09/01/17 12:24 Antibiotics) Review of Systems ROS Statement: Those systems with pertinent positive or pertinent negative responses have been documented in the HPI. ROS Other: All systems not noted in ROS Statement are negative. Past Medical History Past Medical History: Chest Pain / Angina, GERD/Reflux, Hyperlipidemia, Hypertension Additional Past Medical History / Comment(s): Parkinsons. Small hiatal hernia, diverticulosis, gastritis, low grade distal esophagitis, chronic sinusitis, low back pain and bilateral hip pain with bilateral leg weakness-has been seeing a chiropractor. History of Any Multi-Drug Resistant Organisms: None Reported Past Surgical History: Adenoidectomy, Cholecystectomy, Heart Catheterization With Stent, Orthopedic Surgery, Tonsillectomy Additional Past Surgical History / Comment(s): VASECTOMY, Circumcism, RIGHT SHOULDER arthrotomy, lasik surgery bilateral eyes, EGD's amd colonoscopies now q 5 yrs (originally had some precancerous spots in colon). Past Anesthesia/Blood Transfusion Reactions: No Reported Reaction Date of Last Stent Placement:: 11/06/2015 Past Psychological History: No Psychological Hx Reported, Anxiety, Panic Disorder Additional Psychological History / Comment(s): Pt resides with his spouse. 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 He is independent. Smoking Status: Former smoker Past Alcohol Use History: None Reported Additional Past Alcohol Use History / Comment(s): Patient was a smoker for 5 years 1 pack per day and quit in 1970. He denies any medical marijuana, marijuana street drug use. He drinks alcohol occasionally. 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 Past Drug Use History: None Reported - Past Family History Father Family Medical History: Cancer, Dementia Additional Family Medical History / Comment(s): Father at the age of 64 yrs from dementia and had bladder cancer. Mother Family Medical History: Cancer Additional Family Medical History / Comment(s): Mother at age 63 with cancer believed to start in her leg with metastatic disease to the lung and brain. Patient does not have any siblings. Patient has 2 daughters and 1 son with no major medical problems. General Exam - General Exam Comments Initial Comments: GENERAL: Patient is well-developed and well-nourished. Patient is nontoxic and well- hydrated and is in mild distress. ENT: Neck is soft and supple. No significant lymphadenopathy is noted. Oropharynx is clear. Moist mucous membranes. Neck has full range of motion without eliciting any pain. EYES: The sclera were anicteric and conjunctiva were pink and moist. Extraocular movements were intact and pupils were equal round and reactive to light. Eyelids were unremarkable. PULMONARY: Unlabored respirations. Good breath sounds bilaterally. No audible rales rhonchi or wheezing was noted. CARDIOVASCULAR: There is a regular rate and rhythm without any murmurs gallops or rubs. ABDOMEN: Soft and nontender with normal bowel sounds. No palpable organomegaly was noted. There is no palpable pulsatile mass. SKIN: Skin is clear with no lesions or rashes and otherwise unremarkable. NEUROLOGIC: Patient is alert and oriented x3. Cranial nerves II through XII are grossly intact. Motor and sensory are also intact. Normal speech, volume and content. Symmetrical smile. MUSCULOSKELETAL: Normal extremities with adequate strength and full range of motion. LYMPHATICS: No significant lymphadenopathy is noted PSYCHIATRIC: Normal psychiatric evaluation. Normal interpersonal interactions appears functionally intact in deals appropriately with others. No signs of depression. No signs of anxiety. Course Vital Signs 09/01/17 12:05 Temperature 97.6 F Pulse Rate 66 Respiratory 18 Rate Blood Pressure 123/69 O2 Sat by Pulse 98 Oximetry Medical Decision Making - Medical Decision Making EKG shows normal sinus rhythm at 65 bpm DC interval 154 QRS is under 28 QT interval 432 QTC is 449. Patient has a right bundle branch block. Patient's EKG is compared to an old EKG there is no new changes noted. Chest x-ray shows no acute abnormality. Patient's patient no longer any pain while in the emergency department. But because of the symptoms and previous history started the patient on heparin. I spoke with Dr. Lomeli he agreed to admit the patient admitted the patient I consult to cardiology. - Lab Data Result diagrams: 09/01/17 12:02 09/01/17 12:02 Lab Results 09/01/17 09/01/17 09/01/17 Range/Units 12:02 12:02 12:02 WBC 4.5 (3.8-10.6) k/uL RBC 4.04 L (4.30-5.90) m/uL Hgb 12.4 L (13.0-17.5) gm/dL Hct 36.6 L (39.0-53.0) % MCV 90.6 (80.0-100.0) fL MCH 30.7 (25.0-35.0) pg MCHC 33.8 (31.0-37.0) g/dL RDW 12.9 (11.5-15.5) % Plt Count 241 (150-450) k/uL Neutrophils % 70 % Lymphocytes % 23 % Monocytes % 5 % Eosinophils % 1 % Basophils % 0 % Neutrophils # 3.1 (1.3-7.7) k/uL Lymphocytes # 1.0 (1.0-4.8) k/uL Monocytes # 0.2 (0-1.0) k/uL Eosinophils # 0.0 (0-0.7) k/uL Basophils # 0.0 (0-0.2) k/uL PT (9.0-12.0) sec INR (<1.2) APTT (22.0-30.0) sec Sodium 146 H (137-145) mmol/L Potassium 3.9 (3.5-5.1) mmol/L Chloride 108 H (98-107) mmol/L Carbon Dioxide 27 (22-30) mmol/L Anion Gap 11 mmol/L BUN 15 (9-20) mg/dL Creatinine 0.60 L (0.66-1.25) mg/dL Est GFR (CKD-EPI)AfAm >90 (>60 ml/min/1.73 sqM) Est GFR (CKD-EPI)NonAf >90 (>60 ml/min/1.73 sqM) Glucose 97 (74-99) mg/dL Calcium 8.9 (8.4-10.2) mg/dL Magnesium 1.6 (1.6-2.3) mg/dL Total Bilirubin 1.0 (0.2-1.3) mg/dL AST 15 L (17-59) U/L ALT 13 L (21-72) U/L Alkaline Phosphatase 52 (38-126) U/L Total Creatine Kinase 35 L (55-170) U/L CK-MB (CK-2) 2.2 (0.0-2.4) ng/mL CK-MB (CK-2) Rel Index 6.3 Troponin I <0.012 (0.000-0.034) ng/mL Total Protein 5.5 L (6.3-8.2) g/dL Albumin 3.4 L (3.5-5.0) g/dL 09/01/17 Range/Units 12:02 WBC (3.8-10.6) k/uL RBC (4.30-5.90) m/uL Hgb (13.0-17.5) gm/dL Hct (39.0-53.0) % MCV (80.0-100.0) fL MCH (25.0-35.0) pg MCHC (31.0-37.0) g/dL RDW (11.5-15.5) % Plt Count (150-450) k/uL Neutrophils % % Lymphocytes % % Monocytes % % Eosinophils % % Basophils % % Neutrophils # (1.3-7.7) k/uL Lymphocytes # (1.0-4.8) k/uL Monocytes # (0-1.0) k/uL Eosinophils # (0-0.7) k/uL Basophils # (0-0.2) k/uL PT 10.9 (9.0-12.0) sec INR 1.1 (<1.2) APTT 25.6 (22.0-30.0) sec Sodium (137-145) mmol/L Potassium (3.5-5.1) mmol/L Chloride (98-107) mmol/L Carbon Dioxide (22-30) mmol/L Anion Gap mmol/L BUN (9-20) mg/dL Creatinine (0.66-1.25) mg/dL Est GFR (CKD-EPI)AfAm (>60 ml/min/1.73 sqM) Est GFR (CKD-EPI)NonAf (>60 ml/min/1.73 sqM) Glucose (74-99) mg/dL Calcium (8.4-10.2) mg/dL Magnesium (1.6-2.3) mg/dL Total Bilirubin (0.2-1.3) mg/dL AST (17-59) U/L ALT (21-72) U/L Alkaline Phosphatase (38-126) U/L Total Creatine Kinase (55-170) U/L CK-MB (CK-2) (0.0-2.4) ng/mL CK-MB (CK-2) Rel Index Troponin I (0.000-0.034) ng/mL Total Protein (6.3-8.2) g/dL Albumin (3.5-5.0) g/dL Critical Care Time Critical Care Time: Yes Total Critical Care Time: 35 Disposition Clinical Impression: Unstable angina Disposition: ADMITTED IP TO THIS HOSP Referrals: Pete Henriquez MD [Primary Care Provider] - 1-2 days Time of Disposition: 13:08
[2017-09-01 12:20] LABS: Basophils % (A) 0 %; Eosinophils % (A) 1 %; HCT 36.6 % (39.0-53.0); HGB 12.4 gm/dL (13.0-17.5); Lymphocytes % (A) 23 %; MCH 30.7 pg (25.0-35.0); MCHC 33.8 g/dL (31.0-37.0); MCV 90.6 fL (80.0-100.0); Mean Platelet Volume 6.8; Monocytes # (A) 0.2 k/uL (0-1.0); Monocytes % (A) 5 %; Neutrophils # (A) 3.1 k/uL (1.3-7.7); Neutrophils % (A) 70 %; Platelet Count 241 k/uL (150-450); RBC 4.04 m/uL (4.30-5.90); RDW 12.9 % (11.5-15.5); WBC 4.5 k/uL (3.8-10.6)
[2017-09-01 12:30] LABS: ALT 13 U/L (21-72); AST 15 U/L (17-59); Albumin 3.4 g/dL (3.5-5.0); Alkaline Phosphatase 52 U/L (38-126); Anion Gap 11 mmol/L; Blood Urea Nitrogen 15 mg/dL (9-20); Calcium 8.9 mg/dL (8.4-10.2); Carbon Dioxide 27 mmol/L (22-30); Chloride 108 mmol/L (98-107); Glucose 97 mg/dL (74-99); Magnesium 1.6 mg/dL (1.6-2.3); Potassium 3.9 mmol/L (3.5-5.1); Sodium 146 mmol/L (137-145); Total Protein 5.5 g/dL (6.3-8.2)
[2017-09-01 12:33] LABS: INR 1.1 (<1.2); Partial Thromboplastin Time 25.6 sec (22.0-30.0); Prothrombin Time 10.9 sec (9.0-12.0)
--- NOTE | 2017-09-01 12:42 | XR ---
EXAMINATION TYPE: XR chest 2V DATE OF EXAM: 09/01/2017 COMPARISON: 07/30/2017 HISTORY: 67-year-old male with chest pain TECHNIQUE: AP and lateral views FINDINGS: The cardiomediastinal silhouette, aorta, and pulmonary vasculature are within normal limits. Lungs an d pleural spaces are clear. IMPRESSION: No acute cardiopulmonary process.
[2017-09-01 12:44] LABS: Creatine Kinase 35 U/L (55-170)
[2017-09-01 12:55] LABS: Creatine Kinase MB 2.2 ng/mL (0.0-2.4); Troponin I <0.012 ng/mL (0.000-0.034)
[2017-09-01] MEDS ORDERED: HEPARIN SODIUM,PORCINE 5,000 UNIT/ML 1 ML VIAL IV ONE (13:06)
[2017-09-01] MEDS ORDERED: NITROGLYCERIN SL TABS 0.4 MG TAB SUBLINGUAL PRN (13:08)
[2017-09-01] MEDS ORDERED: HEPARIN SOD,PORK IN 0.45% NACL 25,000 UNIT in 0.45% NACL 1 500ML.BAG IV SCH (13:15)
[2017-09-01] MEDS ORDERED: ALPRAZolam 0.25 MG TAB PO PRN (16:43)
[2017-09-01] MEDS ORDERED: SENNOSIDES 8.6 MG TAB PO PRN (16:43)
--- NOTE | 2017-09-01 16:47 | P.HPIM ---
History of Present Illness H&P Date: 09/01/17 Chief Complaint: chest pain This is a 67-year-old male one of Dr. Henriquez with a previous medical history significant for CAD post-PCI back in 2016, hypertension and hypertensive cardio vascular disease, hyperlipidemia, Parkinson disease, patient was brought into the emergency department at [facility] because of chest pain that was started around 9:45 in the morning located in the left chest associated with increased shortness of breath as well as reddish to the jaw and left arm patient to the first admission did not do anything however after he took the second nitroglycerin he felt better and most of his symptoms resolved he came to the ER for evaluation twelve-lead EKG did not show evidence of acute abnormalities, however because of his prior history of presentation he was admitted to the hospital, cardiology consultation was obtained. Review of Systems Constitutional: Denies chronic headaches, Denies lethargy, Denies weakness, Denies weight gain, Denies weight loss Eyes: denies blurred vision, denies bulging eye, denies decreased vision Ears: deny: decreased hearing Ears, nose, mouth and throat: Denies dysphagia, Denies neck lump, Denies sore throat Cardiovascular: Reports chest pain, Reports decreased exercise tolerance, Reports dyspnea on exertion, Reports high blood pressure, Reports shortness of breath, Denies rapid heart beat, Denies syncope Respiratory: Denies congestion, Denies cough with sputum, Denies home oxygen, Denies sleep apnea, Denies snoring, Denies wheezing Gastrointestinal: Denies abdominal pain, Denies bloating, Denies BRBPR, Denies heartburn, Denies melena, Denies nausea, Denies vomiting Genitourinary: Denies dysuria Musculoskeletal: Denies myalgias Musculoskeletal: absent: ankle pain, ankle stiffness, ankle swelling, elbow pain , elbow stiffness, elbow swelling, foot pain, foot stiffness, foot swelling, hand pain, hand stiffness, hand swelling, hip pain, hip stiffness, hip swelling , knee pain, knee stiffness, knee swelling, shoulder pain, shoulder stiffness, shoulder swelling, wrist pain, wrist stiffness, wrist swelling Integumentary: Denies pruritus, Denies rash Neurological: Reports gait dysfunction, Reports spasticity, Reports weakness Psychiatric: Reports anxiety, Reports depression, Reports insomnia, Reports memory loss, Reports sleep disturbances Endocrine: Denies fatigue, Denies weight change Past Medical History Past Medical History: Coronary Artery Disease (CAD), Chest Pain / Angina, GERD/ Reflux, Hyperlipidemia, Hypertension, Neurologic Disorder, Osteoarthritis (OA), Prostate Disorder Additional Past Medical History / Comment(s): Parkinsons. Small hiatal hernia, diverticulosis, gastritis, low grade distal esophagitis, chronic sinusitis, low back pain and bilateral hip pain with bilateral leg weakness-has been seeing a chiropractor. History of Any Multi-Drug Resistant Organisms: None Reported Past Surgical History: Adenoidectomy, Cholecystectomy, Heart Catheterization With Stent, Orthopedic Surgery, Tonsillectomy Additional Past Surgical History / Comment(s): VASECTOMY, Circumcism, RIGHT SHOULDER arthrotomy, lasik surgery bilateral eyes, EGD's amd colonoscopies now q 5 yrs (originally had some precancerous spots in colon). Past Anesthesia/Blood Transfusion Reactions: No Reported Reaction Date of Last Stent Placement:: 11/06/2015 Past Psychological History: No Psychological Hx Reported, Anxiety, Panic Disorder Additional Psychological History / Comment(s): Pt resides with his spouse. 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 He is independent. Smoking Status: Former smoker Past Alcohol Use History: None Reported Additional Past Alcohol Use History / Comment(s): Patient was a smoker for 5 years 1 pack per day and quit in 1970. He denies any medical marijuana, marijuana street drug use. He drinks alcohol occasionally. 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 Past Drug Use History: None Reported - Past Family History Father Family Medical History: Cancer, Dementia Additional Family Medical History / Comment(s): Father at the age of 64 yrs from dementia and had bladder cancer. Mother Family Medical History: Cancer Additional Family Medical History / Comment(s): Mother at age 63 with cancer believed to start in her leg with metastatic disease to the lung and brain. Patient does not have any siblings. Patient has 2 daughters and 1 son with no major medical problems. Medications and Allergies Home Medications Medication Instructions Recorded Confirmed Type Atenolol 50 mg PO HS 11/06/15 09/01/17 History NIFEdipine [Adalat cc] 90 mg PO HS 11/06/15 09/01/17 History Omeprazole [PriLOSEC] 20 mg PO DAILY 11/06/15 09/01/17 History ALPRAZolam [Xanax] 0.25 mg PO QAM 07/17/17 09/01/17 History Sertraline HCl [Zoloft] 50 mg PO DAILY 07/17/17 09/01/17 History Tamsulosin [Flomax] 0.4 mg PO HS 07/17/17 09/01/17 History QUEtiapine [SEROquel] 50 mg PO HS #14 tab 07/25/17 09/01/17 Rx ALPRAZolam [Xanax] 0.25 mg PO DIRECTED PRN 09/01/17 09/01/17 History Carbidopa-Levodopa 25-100 mg 1 tab PO TID@07,12,17 09/01/17 09/01/17 History [Sinemet 25-100 mg] Memantine [Namenda] 10 mg PO DIRECTED 09/01/17 09/01/17 History Sennosides [Senna] 8.6 mg PO HS PRN 09/01/17 09/01/17 History clonazePAM [KlonoPIN] 0.25 mg PO HS 09/01/17 09/01/17 History Allergies Allergy/AdvReac Type Severity Reaction Status Date / Time diphenhydramine Allergy Unknown Verified 09/01/17 12:24 [From Advil PM] ibuprofen [From Advil PM] Allergy Unknown Verified 09/01/17 12:24 Iodinated Contrast- Oral and Allergy Unknown Verified 09/01/17 12:24 IV Dye Sulfa (Sulfonamide Allergy Anaphylaxis Verified 09/01/17 12:24 Antibiotics) Physical Exam Vitals: Vital Signs Temp Pulse Resp BP Pulse Ox 09/01/17 12:05 97.6 F 66 18 123/69 98 Intake and Output 08/31/17 09/01/17 09/01/17 22:59 06:59 14:59 Other: Weight 63.049 kg - Constitutional General appearance: average body habitus, no acute distress - EENT Eyes: anicteric sclerae, EOMI, PERRLA, no ptosis, no scleral icterus, normal appearance ENT: hearing grossly normal, normal oropharynx, no thrush Ears: bilateral: normal - Neck Neck: no lymphadenopathy, normal ROM, no rigidity, no stridor, no thyromegaly Carotids: bilateral: upstroke normal Thyroid: bilateral: normal size - Respiratory Respiratory: bilateral: diminished, negative: dullness, rales, rhonchi, wheezing , prolonged expiration - Cardiovascular Rhythm: regular Heart sounds: normal: S1, S2 Abnormal Heart Sounds: systolic murmur, no S3 Gallop - Gastrointestinal General gastrointestinal: normal bowel sounds, soft, no splenomegaly, no tenderness - Integumentary Integumentary: normal, normal turgor - Neurologic Neurologic: CNII-XII intact - Musculoskeletal Musculoskeletal: no gait normal, strength equal bilaterally - Psychiatric Psychiatric: A&O x's 3, appropriate affect, intact judgment & insight Results CBC & Chem 7: 09/01/17 12:02 09/01/17 12:02 Labs: Abnormal Lab Results - Last 24 Hours (Table) 09/01/17 09/01/17 09/01/17 Range/Units 12: 12: 12:02 RBC 4.04 L (4.30-5.90) m/uL Hgb 12.4 L (13.0-17.5) gm/dL Hct 36.6 L (39.0-53.0) % Sodium 146 H (137-145) mmol/L Chloride 108 H (98-107) mmol/L Creatinine 0.60 L (0.66-1.25) mg/dL AST 15 L (17-59) U/L ALT 13 L (21-72) U/L Total Creatine Kinase 35 L (55-170) U/L Total Protein 5.5 L (6.3-8.2) g/dL Albumin 3.4 L (3.5-5.0) g/dL Thrombosis Risk Factor Assmnt - DVT/VTE Prophylaxis DVT/VTE Prophylaxis: Pharmacologic Prophylaxis ordered, Mechanical Prophylaxis ordered Assessment and Plan Assessment: Assessment and plan: 1. Chest pain of the patient with a prior history of CAD post-PCI back in 2016. Continue patient on aspirin 325 mg orally once every day, continue atenolol 50 mg orally once every day, heparin drip, cardiac enzymes 3 every 8 hours, cardiology consultation, place the patient on telemetry. 2. History of CAD post-PCI in the past. Continue treatment as in paragraph #1. 3. Hypertension and hypertensive cardiovascular disease. Continue atenolol 50 mg orally once every day and nifedipine 30 mg orally 3 times every day. 4. Parkinson disease. Continue patient on Sinemet 25/100 one tablet orally 3 times every day. 5. Dementia. Continue patient on Namenda 10 mg orally once every day. 6. Anxiety disorder with panic attacks. Continue patient on Zoloft 25 mg orally once every day, Klonopin 0.5 mg at bedtime along with the Xanax as needed. 7. Enlarged prostate. Continue patient on Flomax 0.4 mg orally once every day. 8. DVT prophylaxis. Continue heparin drip. 9. GI prophylaxis. Continue patient on PPI. 10. Observation.
[2017-09-01] MEDS: CARBIDOPA-LEVODOPA 25-100 MG 1 EACH TAB PO SCH (17:52)
[2017-09-01] MEDS: NITROGLYCERIN OINT 1 INCH/GM PACKET TOPICAL SCH (18:03)
[2017-09-01 18:51] LABS: Creatine Kinase 29 U/L (55-170)
[2017-09-01 19:05] LABS: Creatine Kinase MB 1.8 ng/mL (0.0-2.4); Troponin I <0.012 ng/mL (0.000-0.034)
[2017-09-01] MEDS ORDERED: HEPARIN SODIUM,PORCINE 5,000 UNIT/ML 1 ML VIAL IV PRN (19:55)
[2017-09-01] MEDS ORDERED: NIFEdipine XL 90 MG TAB.ER.24 PO SCH (21:00)
[2017-09-01] MEDS ORDERED: MEMANTINE 5 MG TAB PO SCH (21:00)
[2017-09-01] MEDS ORDERED: clonazePAM 0.5 MG TAB PO SCH (21:00)
[2017-09-01] MEDS ORDERED: ATENOLOL 50 MG TAB PO SCH (21:00)
[2017-09-01] MEDS ORDERED: TAMSULOSIN 0.4 MG CAP.ER.24H PO SCH (21:00)
[2017-09-01] MEDS ORDERED: QUEtiapine 50 MG TAB PO SCH (21:00)
[2017-09-02] MEDS: NITROGLYCERIN OINT 1 INCH/GM PACKET TOPICAL SCH ×2 (00:42→06:51)
[2017-09-02 00:52] LABS: Creatine Kinase 23 U/L (55-170)
[2017-09-02 01:06] LABS: Creatine Kinase MB 1.2 ng/mL (0.0-2.4); Troponin I <0.012 ng/mL (0.000-0.034)
[2017-09-02 04:16] LABS: Basophils % (A) 0 %; Eosinophils # (A) 0.1 k/uL (0-0.7); Eosinophils % (A) 1 %; HCT 36.5 % (39.0-53.0); HGB 12.1 gm/dL (13.0-17.5); Lymphocytes # (A) 1.3 k/uL (1.0-4.8); Lymphocytes % (A) 29 %; MCH 30.5 pg (25.0-35.0); MCHC 33.2 g/dL (31.0-37.0); MCV 91.9 fL (80.0-100.0); Monocytes # (A) 0.3 k/uL (0-1.0); Monocytes % (A) 6 %; Neutrophils # (A) 2.9 k/uL (1.3-7.7); Neutrophils % (A) 63 %; Platelet Count 229 k/uL (150-450); RBC 3.98 m/uL (4.30-5.90); RDW 13.1 % (11.5-15.5); WBC 4.6 k/uL (3.8-10.6)
[2017-09-02 05:26] LABS: ALT 16 U/L (21-72); AST 15 U/L (17-59); Albumin 3.2 g/dL (3.5-5.0); Alkaline Phosphatase 52 U/L (38-126); Anion Gap 12 mmol/L; Blood Urea Nitrogen 14 mg/dL (9-20); Calcium 8.6 mg/dL (8.4-10.2); Carbon Dioxide 25 mmol/L (22-30); Chloride 106 mmol/L (98-107); Cholesterol 123 mg/dL (<200); Glucose 82 mg/dL (74-99); HDL Cholesterol 45 mg/dL (40-60); LDL Cholesterol,Calculated 65 mg/dL (0-99); Potassium 3.6 mmol/L (3.5-5.1); Sodium 143 mmol/L (137-145); Total Bilirubin 0.9 mg/dL (0.2-1.3); Total Protein 5.3 g/dL (6.3-8.2); Triglycerides 63 mg/dL (<150)
[2017-09-02] MEDS ORDERED: ACETAMINOPHEN TAB 325 MG TAB PO PRN (06:51)
[2017-09-02] MEDS ORDERED: PANTOPRAZOLE 40 MG TABLET PO SCH (07:30)
[2017-09-02 08:05] VITALS: RESP 18
[2017-09-02 08:24] VITALS: BMI 18.3
[2017-09-02] MEDS: CARBIDOPA-LEVODOPA 25-100 MG 1 EACH TAB PO SCH ×2 (08:26→12:31)
[2017-09-02] MEDS ORDERED: SERTRALINE 50 MG TAB PO SCH (09:00)
[2017-09-02] MEDS ORDERED: ALPRAZolam 0.25 MG TAB PO SCH (09:00)
[2017-09-02] MEDS ORDERED: ASPIRIN 325 MG TAB PO SCH (09:00)
[2017-09-02] MEDS ORDERED: MEMANTINE 5 MG TAB PO SCH (09:00)
--- NOTE | 2017-09-02 10:59 | ECHOF ---
Referral Reason: MEASUREMENTS -------- HEIGHT: 180.3 cm WEIGHT: 63.0 kg BP: IVSd: 0.9 cm (0.6 - 1.1) LVIDd: 4.0 cm (3.9 - 5.3) LVPWd: 1.0 cm (0.6 - 1.1) IVSs: 1.6 cm LVIDs: 1.5 cm LVPWs: 1.7 cm MV EXCURSION: 19.089 mm (> 18.000) MV EF SLOPE: 107 mm/s (70 - 150) EPSS: 1.7 cm MV E Ezra: 0.62 m/s MV DecT: 247 ms MV A Ezra: 0.56 m/s MV E/A Ratio: 1.12 RAP: 5.00 mmHg RVSP: 9.35 mmHg FINDINGS -------- Sinus rhythm. This was a technically difficult study with suboptimal views. The left ventricular size is normal. Left ventricular wall thickness is normal. Overall left vent ricular systolic function is normal with, an EF between 55 - 60 %. The RV was not well visualized. The left atrium was not well visualized. The right atrium was not well visualized. Lumason used The aortic valve was not well visualized. There is trace mitral regurgitation. Trace tricuspid regurgitation present. The right ventricular systolic pressure, as measured by Dopp ler, is 9.35mmHg. The pulmonic valve was not well visualized. CONCLUSIONS -------- 1. Sinus rhythm. 2. This was a technically difficult study with suboptimal views. 3. The left ventricular size is normal. 4. Left ventricular wall thickness is normal. 5. Overall left ventricular systolic function is normal with, an EF between 55 - 60 %. 6. The RV was not well visualized. 7. The left atrium was not well visualized. 8. The right atrium was not well visualized. 9. Lumason used 10. The aortic valve was not well visualized. 11. There is trace mitral regurgitation. 12. Trace tricuspid regurgitation present. 13. The right ventricular systolic pressure, as measured by Doppler, is 9.35mmHg. 14. The pulmonic valve was not well visualized. FIELD AGENT: Mindi Avila [facility]
[2017-09-02] MEDS ORDERED: ASPIRIN 81 MG PO SCH (11:48)
[2017-09-02 11:51] VITALS: BP 121/71; PULSE 68; TEMP 97.5
--- NOTE | 2017-09-02 12:04 | P.CRDCN ---
History of Present Illness Consult date: 09/02/17 History of present illness: Mr. Pabon is a pleasant 67-year-old male past medical history significant for coronary artery disease with stent to LAD, gastroesophageal reflux disease, hypertension, dyslipidemia and parkinsons. He sees Dr. Goodman in the office. We have been asked to see him in consultation for chest pain. He states yesterday morning he woke up in his usual state of health and began walking to the bathroom and started feeling an intense excruciating sharp pain in the midsternal region. He was mildly short of breath as well. He continued walking into the kitchen to take a nitroglycerin and the pain started radiating up into his neck. He took one nitroglycerin and got no relief. He walked over to the couch to brace himself because he started feeling weak and had to lower himself down to the ground. He took a second nitroglycerin and the pain started to subside. By the time he came to the ED the pain was gone. EKG is sinus mechanism with right bundle branch block and no acute ST or T-wave abnormalities. Chest xray is negative for an acute cardiopulmonary process. Laboratory reviewed, hgb 12.1, plt 229, sodium 143, potassium 3.6, creatinine 0.5, cardiac enzymes negative x3, LDL 65, HDL 45. Current cardiac medications include atenolol 50 mg daily. Medication list is not consistent with list from the office, attempting to reach the daughter to clarify. Office notes from June indicate he takes amlodipine, aspirin, imdur , atorvastatin and losartan/hctz. Mot recent catheterization from 11/2015 reveals patent stent of mid-LAD. Most recent Lexiscan stress test in the office 01/2017 is negative for reversible cardiac ischemia. Review of Systems At the time of my exam: CONSTITUTIONAL: Denies fever. Denies chills. EYES: Denies blurred vision. Denies vision changes. Denies eye pain. EARS, NOSE, MOUTH & THROAT: Denies headache. Denies sore throat. Denies ear pain. CARDIOVASCULAR: Denies chest pain. Denies shortness of breath. Denies orthopnea. Denies PND. Denies palpitations. RESPIRATORY: Denies cough. GASTROINTESTINAL: Denies abdominal pain. Denies diarrhea. Denies constipation. Denies nausea. Denies vomiting. MUSCULOSKELETAL: Denies myalgias. INTEGUMENTARY: Denies pruitis. Denies rash. NEUROLOGIC: Denies numbness. Denies tingling. Denies weakness. PSYCHIATRIC: Denies anxiety. Denies depression. ENDOCRINE: Denies fatigue. Denies weight change. Denies polydipsia. Denies polyurina. GENITOURINARY: Denies burning, hematuria or urgency with micturation. HEMATOLOGIC: Denies history of anemia. Denies bleeding. Past Medical History Past Medical History: Coronary Artery Disease (CAD), Chest Pain / Angina, GERD/ Reflux, Hyperlipidemia, Hypertension, Neurologic Disorder, Osteoarthritis (OA), Prostate Disorder Additional Past Medical History / Comment(s): Parkinsons. Small hiatal hernia, diverticulosis, gastritis, low grade distal esophagitis, chronic sinusitis, low back pain and bilateral hip pain with bilateral leg weakness-has been seeing a chiropractor. History of Any Multi-Drug Resistant Organisms: None Reported Past Surgical History: Adenoidectomy, Cholecystectomy, Heart Catheterization With Stent, Orthopedic Surgery, Tonsillectomy Additional Past Surgical History / Comment(s): VASECTOMY, Circumcism, RIGHT SHOULDER arthrotomy, lasik surgery bilateral eyes, EGD's amd colonoscopies now q 5 yrs (originally had some precancerous spots in colon). Past Anesthesia/Blood Transfusion Reactions: No Reported Reaction Date of Last Stent Placement:: 11/06/2015 Past Psychological History: No Psychological Hx Reported, Anxiety, Panic Disorder Additional Psychological History / Comment(s): Pt resides with his spouse. 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 He is independent. Smoking Status: Former smoker Past Alcohol Use History: None Reported Additional Past Alcohol Use History / Comment(s): Patient was a smoker for 5 years 1 pack per day and quit in 1970. He denies any medical marijuana, marijuana street drug use. He drinks alcohol occasionally. 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 Past Drug Use History: None Reported - Past Family History Father Family Medical History: Cancer, Dementia Additional Family Medical History / Comment(s): Father at the age of 64 yrs from dementia and had bladder cancer. Mother Family Medical History: Cancer Additional Family Medical History / Comment(s): Mother at age 63 with cancer believed to start in her leg with metastatic disease to the lung and brain. Patient does not have any siblings. Patient has 2 daughters and 1 son with no major medical problems. Medications and Allergies Home Medications Medication Instructions Recorded Confirmed Type Atenolol 50 mg PO HS 11/06/15 09/01/17 History NIFEdipine [Adalat cc] 90 mg PO HS 11/06/15 09/01/17 History Omeprazole [PriLOSEC] 20 mg PO DAILY 11/06/15 09/01/17 History ALPRAZolam [Xanax] 0.25 mg PO QAM 07/17/17 09/01/17 History Sertraline HCl [Zoloft] 50 mg PO DAILY 07/17/17 09/01/17 History Tamsulosin [Flomax] 0.4 mg PO HS 07/17/17 09/01/17 History QUEtiapine [SEROquel] 50 mg PO HS #14 tab 07/25/17 09/01/17 Rx ALPRAZolam [Xanax] 0.25 mg PO DIRECTED PRN 09/01/17 09/01/17 History Carbidopa-Levodopa 25-100 mg 1 tab PO TID@07,12,17 09/01/17 09/01/17 History [Sinemet 25-100 mg] Memantine [Namenda] 10 mg PO DIRECTED 09/01/17 09/01/17 History Sennosides [Senna] 8.6 mg PO HS PRN 09/01/17 09/01/17 History clonazePAM [KlonoPIN] 0.25 mg PO HS 09/01/17 09/01/17 History Allergies Allergy/AdvReac Type Severity Reaction Status Date / Time acetaminophen Allergy Swelling Verified 09/01/17 20:08 [From Tylenol PM] diphenhydramine Allergy Unknown Verified 09/01/17 20:08 [From Advil PM] ibuprofen [From Advil PM] Allergy Unknown Verified 09/01/17 20:08 Iodinated Contrast- Oral and Allergy Unknown Verified 09/01/17 20:08 IV Dye Sulfa (Sulfonamide Allergy Anaphylaxis Verified 09/01/17 20:08 Antibiotics) Physical Exam Vitals: Vital Signs Temp Pulse Pulse Resp BP BP Pulse Ox 09/02/17 04:00 16 09/02/17 03:49 97.4 F L 63 16 128/76 96 09/02/17 00:00 98.0 F 66 16 134/79 97 09/01/17 20:00 98.3 F 79 16 142/80 96 09/01/17 18:52 98.7 F 94 18 151/64 98 09/01/17 18:05 71 18 169/94 98 09/01/17 15:27 76 18 136/72 98 09/01/17 14:30 65 18 132/75 98 09/01/17 12:05 97.6 F 66 18 123/69 98 Intake and Output 09/01/17 09/02/17 09/02/17 22:59 06:59 14:59 Intake Total 95.823 120.903 Balance 95.823 120.903 Intake: Intake, IV Titration 95.823 120.903 Amount Heparin Sod,Pork in 0.45% 95.823 120.903 NaCl 25,000 unit In 0.45 % NaCl 1 500ml.bag @ 12 UNITS/KG/HR 15.13 mls/hr IV .Q24H [facility] Rx#: [id number] Other: Voiding Method Toilet Toilet # Voids 4 Blood pressure 120/72 heart rate 60 afebrile maintaining oxygen saturation on room air GENERAL: This is a 67-year-old male in no apparent distress at the time of my examination. HEENT: Head is atraumatic, normocephalic. Pupils are equal, round. Sclerae anicteric. Conjunctivae are clear. Mucous membranes of the mouth are moist. Neck is supple. There is no jugular venous distention. No carotid bruit is heard. LUNGS: Clear to auscultation no wheezes, rales or rhonchi. No chest wall tenderness is noted on palpation or with deep breathing. HEART: Regular rate and rhythm without murmurs, rubs or gallops. S1 and S2 heard. ABDOMEN: Soft, nontender. Bowel sounds are heard. No organomegaly noted. EXTREMITIES: No evidence of peripheral edema and no calf tenderness noted. VASCULAR: Radial and dorsalis pedis pulses palpated, no evidence of clubbing. NEUROLOGIC: Patient is awake, alert and oriented x3. Results 09/02/17 03:58 09/02/17 03:58 Cardiac Enzymes 09/01/17 09/01/17 09/01/17 Range/Units 12:02 12:02 18:04 AST 15 L (17-59) U/L CK-MB (CK-2) 2.2 1.8 (0.0-2.4) ng/mL Troponin I <0.012 <0.012 (0.000-0.034) ng/mL 18 09/02/17 Range/Units 00:08 03:58 AST 15 L (17-59) U/L CK-MB (CK-2) 1.2 (0.0-2.4) ng/mL Troponin I <0.012 (0.000-0.034) ng/mL Coagulation 09/01/17 09/01/17 09/02/17 Range/Units 12:02 20:41 03:58 PT 10.9 (9.0-12.0) sec APTT 25.6 41.3 H 81.3 H (22.0-30.0) sec Lipids 09/02/17 Range/Units 03:58 Triglycerides 63 (<150) mg/dL Cholesterol 123 (<200) mg/dL HDL Cholesterol 45 (40-60) mg/dL CBC 09/01/17 09/02/17 Range/Units 12:02 03:58 WBC 4.5 4.6 (3.8-10.6) k/uL RBC 4.04 L 3.98 L (4.30-5.90) m/uL Hgb 12.4 L 12.1 L (13.0-17.5) gm/dL Hct 36.6 L 36.5 L (39.0-53.0) % Plt Count 241 229 (150-450) k/uL Comprehensive Metabolic Panel 09/01/17 09/02/17 Range/Units 12:02 03:58 Sodium 146 H 143 (137-145) mmol/L Potassium 3.9 3.6 (3.5-5.1) mmol/L Chloride 108 H 106 (98-107) mmol/L Carbon Dioxide 27 25 (22-30) mmol/L BUN 15 14 (9-20) mg/dL Creatinine 0.60 L 0.50 L (0.66-1.25) mg/dL Glucose 97 82 (74-99) mg/dL Calcium 8.9 8.6 (8.4-10.2) mg/dL AST 15 L 15 L (17-59) U/L ALT 13 L 16 L (21-72) U/L Alkaline Phosphatase 52 52 (38-126) U/L Total Protein 5.5 L 5.3 L (6.3-8.2) g/dL Albumin 3.4 L 3.2 L (3.5-5.0) g/dL Current Medications Generic Name Dose Route Start Last Admin Trade Name Freq PRN Reason Stop Dose Admin Acetaminophen 650 mg 09/02/17 06:51 Tylenol Tab PO Q6HR PRN Fever and/ or Pain Alprazolam 0.25 mg 09/01/17 16:43 Xanax PO DAILY PRN Anxiety Alprazolam 0.25 mg 09/02/17 09:00 Xanax PO QAM [facility] Aspirin 325 mg 09/02/17 09:00 Aspirin PO DAILY [facility] Atenolol 50 mg 09/01/17 21:00 09/01/17 20:39 Tenormin PO 50 mg HS [facility]ISLINN Administration Carbidopa/Levodopa 1 each 09/01/17 17:00 09/01/17 17:52 Sinemet 25-100 PO 1 each TID@07,12,17 AISLINN Administration Clonazepam 0.25 mg 09/01/17 21:00 09/01/17 20:39 Klonopin PO 0.25 mg HS [facility] Administration Heparin Sodium (Porcine) 0 unit 09/01/17 19:55 09/01/17 21:42 Heparin IV 1,575 unit PER PROTOCOL PRN Administration Low PTT Protocol Heparin Sodium/Sodium Chloride 500 mls @ 15.13 mls/hr 09/01/17 13:15 04:30 25,000 unit/ Sodium Chloride IV 12 units/kg/hr .Q24H [facility] 15.13 mls/hr Protocol Titration 12 UNITS/KG/HR Memantine 5 mg 09/02/17 09:00 Namenda PO 09/08/17 09:01 DAILY [facility] Memantine 10 mg 09/02/17 21:00 Namenda PO 09/08/17 21:01 HS [facility]ISLIN[facility] Memantine 10 mg 09/09/17 09:00 Namenda PO BID [facility] Nifedipine 90 mg 09/01/17 21:00 09/01/17 20:39 Procardia Xl PO 90 mg HS [facility]ISLIN[facility] Administration Nitroglycerin 1 inch 09/01/17 18:00 09/02/17 06:51 Nitro-Bid Oint TOPICAL Not Given Q6HR [facility] Nitroglycerin 0.4 mg 09/01/17 13:08 Nitrostat SUBLINGUAL Q5M PRN Chest Pain Pantoprazole Sodium 40 mg 09/02/17 07:30 Protonix PO AC-BRKFST [facility]ISLIN[facility] Quetiapine Fumarate 50 mg 09/01/17 21:00 09/01/17 20:39 Seroquel PO 50 mg HS [facility] Administration Senna 8.6 mg 09/01/17 16:43 Senokot PO HS PRN Constipation Sertraline HCl 50 mg 09/02/17 09:00 Zoloft PO DAILY [facility] Tamsulosin HCl 0.4 mg 09/01/17 21:00 09/01/17 20:39 Flomax PO Not Given HS [facility] Intake and Output 09/01/17 09/02/17 09/02/17 22:59 06:59 14:59 Intake Total 95.823 120.903 Balance 95.823 120.903 Intake: Intake, IV Titration 95.823 120.903 Amount Heparin Sod,Pork in 0.45% 95.823 120.903 NaCl 25,000 unit In 0.45 % NaCl 1 500ml.bag @ 12 UNITS/KG/HR 15.13 mls/hr IV .Q24H [facility] Rx#: [id number] Other: Voiding Method Toilet Toilet # Voids 4 09/02/17 03:58 09/02/17 03:58 Assessment and Plan Assessment: ASSESSMENT 1. Chest pain, atypical. An acute coronary event has been ruled out. 2. History of coronary artery disease with patent stent to midLAD on cath 2015 with recent negative stress test. 3. Hypertension 4. Dyslipidemia 5. Parkinson's disease PLAN An acute coronary event has been ruled out. Obtain 2D echocardiogram and doppler study to assess cardiac structure and function. Discontinue heparin infusion and nitropaste. Increase activity and assess for symptoms of chest discomfort, if no chest pain he is stable from a cardiac perspective. Clarify medications with daughter. Follow-up with Dr. Goodman in 2 weeks. Nurse Practitioner note has been reviewed, I agree with a documented findings and plan of care. Patient was seen and examined.
--- NOTE | 2017-09-02 15:14 | P.DS ---
Providers Date of admission: 09/01/17 13:08 Expected date of discharge: 09/02/17 Attending physician: Nohemy Lomeli Consults: 09/01/17 13:08 Consult Physician Urgent Consulting Provider: [facility] Consult Reason/Comments: Unstable angina Do you want consulting provider notified?: Yes Primary care physician: Pete Henriquez [facility] Course: This is a 67-year-old male one of Dr. Henriquez with a previous medical history significant for CAD post-PCI back in 2015, hypertension and hypertensive cardio vascular disease, hyperlipidemia, Parkinson disease, patient was brought into the emergency department at [facility] today because of chest pain that was started around 9:45 in the morning located in the left chest associated with increased shortness of breath as well as reddish to the jaw and left arm patient to the first admission did not do anything however after he took the second nitroglycerin he felt better and most of his symptoms resolved he came to the ER for evaluation twelve-lead EKG did not show evidence of acute abnormalities, however because of his prior history of presentation he was admitted to the hospital, cardiology consultation was obtained. 09/02: Echocardiogram reveals EF of 55-60%, trace mitral regurgitation, trace tricuspid regurgitation. Patient has been seen by cardiology and acute coronary syndrome has been ruled out. Patient to follow-up with Dr. Goodman as an outpatient. Patient will be discharged home today in stable condition. Discharge diagnoses: 1. Chest pain of the patient with a prior history of CAD post-PCI back in 2015. No acute coronary syndrome 2. History of CAD post-PCI in the past. 3. Hypertension and hypertensive cardiovascular disease. 4. Parkinson disease. 5. Vascular dementia. 6. Generalized anxiety disorder with panic attacks. 7. Enlarged prostate. Discharge plan: Return home Impression and plan of care have been directed as dictated by the signing physician. Sapna Mcconnell nurse practitioner acting as scribe for signing physician. Patient Condition at Discharge: Good Plan - Discharge Summary Discharge Rx Participant: No New Discharge Prescriptions: New Aspirin 81 mg PO DAILY chew Continue Omeprazole [PriLOSEC] 20 mg PO DAILY Atenolol 50 mg PO HS NIFEdipine [Adalat cc] 90 mg PO HS ALPRAZolam [Xanax] 0.25 mg PO QAM Tamsulosin [Flomax] 0.4 mg PO HS Sertraline HCl [Zoloft] 50 mg PO DAILY QUEtiapine [SEROquel] 50 mg PO HS #14 tab Memantine [Namenda] 10 mg PO DIRECTED clonazePAM [KlonoPIN] 0.25 mg PO HS ALPRAZolam [Xanax] 0.25 mg PO DIRECTED PRN PRN Reason: Anxiety Carbidopa-Levodopa 25-100 mg [Sinemet 25-100 mg] 1 tab PO TID@,, Sennosides [Senna] 8.6 mg PO HS PRN PRN Reason: Constipation Discharge Medication List Atenolol 50 mg PO HS 11/06/15 [History] NIFEdipine [Adalat cc] 90 mg PO HS 11/06/15 [History] Omeprazole [PriLOSEC] 20 mg PO DAILY 11/06/15 [History] ALPRAZolam [Xanax] 0.25 mg PO QAM 07/17/17 [History] Sertraline HCl [Zoloft] 50 mg PO DAILY 07/17/17 [History] Tamsulosin [Flomax] 0.4 mg PO HS 07/17/17 [History] QUEtiapine [SEROquel] 50 mg PO HS #14 tab 07/25/17 [Rx] ALPRAZolam [Xanax] 0.25 mg PO DIRECTED PRN 09/01/17 [History] Carbidopa-Levodopa 25-100 mg [Sinemet 25-100 mg] 1 tab PO TID@,,17 09/01/17 [History] Memantine [Namenda] 10 mg PO DIRECTED 09/01/17 [History] Sennosides [Senna] 8.6 mg PO HS PRN 09/01/17 [History] clonazePAM [KlonoPIN] 0.25 mg PO HS 09/01/17 [History] Aspirin 81 mg PO DAILY chew 09/02/17 [Rx] Follow up Appointment(s)/Referral(s): Bebeto Goodman MD [STAFF PHYSICIAN] - 09/20/17 3:30 am Pete Henriquez MD [Primary Care Provider] - 1 Week Patient Instructions/Handouts: Chest Pain (DC)
[2017-09-02] MEDS ORDERED: MEMANTINE 10 MG TAB PO SCH (21:00)
[2017-09-09] MEDS ORDERED: MEMANTINE 10 MG TAB PO SCH (09:00)
== END 2017-09-02 15:15 | disposition home or self-care (01) ==
LOC: EC 11:42 → 3OBS 13:08
PROVIDERS: ADMIT Internal Medicine; ATTEND Internal Medicine
DX: R07.89 Other chest pain (principal); R68.84 Jaw pain; R06.02 Shortness of breath; R53.1 Weakness; I25.110 Atherosclerotic heart disease of native coronary artery with unstable angina pectoris; I11.9 Hypertensive heart disease without heart failure; G20 Parkinson's disease; F01.50 Vascular dementia, unspecified severity, without behavioral disturbance, psychotic disturbance, mood disturbance, and anxiety; E78.5 Hyperlipidemia, unspecified; F41.0 Panic disorder [episodic paroxysmal anxiety]; F41.1 Generalized anxiety disorder; N40.0 Benign prostatic hyperplasia without lower urinary tract symptoms; K21.9 Gastro-esophageal reflux disease without esophagitis; Z95.5 Presence of coronary angioplasty implant and graft; M19.90 Unspecified osteoarthritis, unspecified site; R26.9 Unspecified abnormalities of gait and mobility; J32.9 Chronic sinusitis, unspecified; M54.5 Low back pain; M25.551 Pain in right hip; M25.552 Pain in left hip; K57.90 Diverticulosis of intestine, part unspecified, without perforation or abscess without bleeding; G47.00 Insomnia, unspecified; Z79.899 Other long term (current) drug therapy; Z88.2 Allergy status to sulfonamides; Z88.8 Allergy status to other drugs, medicaments and biological substances; Z88.6 Allergy status to analgesic agent; Z91.041 Radiographic dye allergy status; Z87.19 Personal history of other diseases of the digestive system; Z87.891 Personal history of nicotine dependence; Z80.52 Family history of malignant neoplasm of bladder; Z81.8 Family history of other mental and behavioral disorders; Z80.1 Family history of malignant neoplasm of trachea, bronchus and lung; Z80.8 Family history of malignant neoplasm of other organs or systems
CPT/HCPCS: 99291 ×2; 96365 ×2; 96366 ×6; 96376 ×3; 36415; 93005; 93306; 80061; 80053 ×2; 82550 ×2; 82553 ×2; 83735; 84484 ×2; 85025 ×2; 85610; 85730 ×2; 71046; G0378 ×2; J1644 ×2

== ENCOUNTER 2017-09-08 14:15 | Inpatient (IN) | payer MEDICARE ==
[2017-09-08] MEDS ORDERED: SODIUM CHLORIDE 0.9% 500 ML IV STA (15:04)
--- NOTE | 2017-09-08 15:06 | ED ---
General Adult HPI - General Chief complaint: Extremity Injury, Lower Stated complaint: Weakness Time Seen by Provider: 09/08/17 14:25 Source: EMS, RN notes reviewed Mode of arrival: EMS - History of Present Illness Initial comments: This is a 67-year-old male who presents to the emergency department with a past medical history significant for Parkinson's. Patient comes in today complaining that over the last couple of months as Parkinson's is getting considerably worse and he is having a harder and harder time walking. Patient states today he was only able to go from his bed to the bathroom and back and he almost didn't make it. Patient was getting scared because he only lives with his and she can help him because she's got dementia. Patient denies any headache patient denies numbness weakness. Patient denies any fever chills or cough. Patient denies any chest pain difficult breathing shortness of breath. Patient denies abdominal pain patient denies nausea vomiting diarrhea. - Related Data Home Medications Medication Instructions Recorded Confirmed Atenolol 50 mg PO HS 11/06/15 09/08/17 NIFEdipine [Adalat cc] 90 mg PO HS 11/06/15 09/08/17 Omeprazole [PriLOSEC] 20 mg PO DAILY 11/06/15 09/08/17 ALPRAZolam [Xanax] 0.25 mg PO QAM 07/17/17 09/08/17 Sertraline HCl [Zoloft] 50 mg PO DAILY 07/17/17 09/08/17 Tamsulosin [Flomax] 0.4 mg PO HS 07/17/17 09/08/17 ALPRAZolam [Xanax] 0.25 mg PO DIRECTED PRN 09/01/17 09/08/17 Carbidopa-Levodopa 25-100 mg 1 tab PO TID@07,12,09/01/17 09/08/17 [Sinemet 25-100 mg] Memantine [Namenda] 10 mg PO DIRECTED 09/01/17 09/08/17 Sennosides [Senna] 8.6 mg PO HS PRN 09/01/17 09/08/17 clonazePAM [KlonoPIN] 0.25 mg PO HS 09/01/17 09/08/17 Previous Rx's Medication Instructions Recorded QUEtiapine [SEROquel] 50 mg PO HS #14 tab 07/25/17 Aspirin 81 mg PO DAILY chew 09/02/17 Allergies Allergy/AdvReac Type Severity Reaction Status Date / Time acetaminophen Allergy Swelling Verified 09/08/17 14:39 [From Tylenol PM] diphenhydramine Allergy Unknown Verified 09/08/17 14:39 [From Advil PM] ibuprofen [From Advil PM] Allergy Unknown Verified 09/08/17 14:39 Iodinated Contrast- Oral and Allergy Unknown Verified 09/08/17 14:39 IV Dye Sulfa (Sulfonamide Allergy Anaphylaxis Verified 09/08/17 14:39 Antibiotics) Review of Systems ROS Statement: Those systems with pertinent positive or pertinent negative responses have been documented in the HPI. ROS Other: All systems not noted in ROS Statement are negative. Past Medical History Past Medical History: Coronary Artery Disease (CAD), Chest Pain / Angina, GERD/ Reflux, Hyperlipidemia, Hypertension, Neurologic Disorder, Osteoarthritis (OA), Prostate Disorder Additional Past Medical History / Comment(s): Parkinsons. Small hiatal hernia, diverticulosis, gastritis, low grade distal esophagitis, chronic sinusitis, low back pain and bilateral hip pain with bilateral leg weakness-has been seeing a chiropractor. History of Any Multi-Drug Resistant Organisms: None Reported Past Surgical History: Adenoidectomy, Cholecystectomy, Heart Catheterization With Stent, Orthopedic Surgery, Tonsillectomy Additional Past Surgical History / Comment(s): VASECTOMY, Circumcism, RIGHT SHOULDER arthrotomy, lasik surgery bilateral eyes, EGD's amd colonoscopies now q 5 yrs (originally had some precancerous spots in colon). Past Anesthesia/Blood Transfusion Reactions: No Reported Reaction Date of Last Stent Placement:: 11/06/2015 Past Psychological History: No Psychological Hx Reported, Anxiety, Panic Disorder Smoking Status: Former smoker Past Alcohol Use History: None Reported Past Drug Use History: None Reported - Past Family History Father Family Medical History: Cancer, Dementia Additional Family Medical History / Comment(s): Father at the age of 64 yrs from dementia and had bladder cancer. Mother Family Medical History: Cancer Additional Family Medical History / Comment(s): Mother at age 63 with cancer believed to start in her leg with metastatic disease to the lung and brain. Patient does not have any siblings. Patient has 2 daughters and 1 son with no major medical problems. General Exam - General Exam Comments Initial Comments: GENERAL: Patient is well-developed and well-nourished. Patient is nontoxic and well- hydrated and is in no acute distress. ENT: Neck is soft and supple. No significant lymphadenopathy is noted. Oropharynx is clear. Moist mucous membranes. Neck has full range of motion without eliciting any pain. EYES: The sclera were anicteric and conjunctiva were pink and moist. Extraocular movements were intact and pupils were equal round and reactive to light. Eyelids were unremarkable. PULMONARY: Unlabored respirations. Good breath sounds bilaterally. No audible rales rhonchi or wheezing was noted. CARDIOVASCULAR: There is a regular rate and rhythm without any murmurs gallops or rubs. ABDOMEN: Soft and nontender with normal bowel sounds. No palpable organomegaly was noted. There is no palpable pulsatile mass. SKIN: Skin is clear with no lesions or rashes and otherwise unremarkable. NEUROLOGIC: Patient is alert and oriented x3. Cranial nerves II through XII are grossly intact. Motor and sensory are also intact. Normal speech, volume and content. Symmetrical smile. MUSCULOSKELETAL: Patient's lower extremities are weak but he can move both of them. They're equally weak. Patient has a slight tremor of the right arm LYMPHATICS: No significant lymphadenopathy is noted PSYCHIATRIC: Normal psychiatric evaluation. Normal interpersonal interactions appears functionally intact in deals appropriately with others. No signs of depression. No signs of anxiety. Course Vital Signs 09/08/17 09/08/17 14:21 16:02 Temperature 98.0 F Pulse Rate 71 65 Respiratory 18 Rate Blood Pressure 125/65 126/83 O2 Sat by Pulse 99 97 Oximetry Medical Decision Making - Medical Decision Making EKG shows normal sinus rhythm at 65 bpm VT interval is 148 QRSs 136 QT interval 460 QTC is 478. Patient has a right bundle branch block. There is no ST segment elevation or depression or T wave abnormalities are noted. I spoke with Dr. Bell she except the admission I admitted the patient and I consult the neurology - Lab Data Result diagrams: 09/08/17 15:44 09/08/17 15:44 Lab Results 09/08/17 09/08/17 09/08/17 Range/Units 15:35 15:44 15:44 WBC 4.7 (3.8-10.6) k/uL RBC 4.22 L (4.30-5.90) m/uL Hgb 13.0 (13.0-17.5) gm/dL Hct 37.5 L (39.0-53.0) % MCV 88.9 (80.0-100.0) fL MCH 30.9 (25.0-35.0) pg MCHC 34.7 (31.0-37.0) g/dL RDW 12.9 (11.5-15.5) % Plt Count 245 (150-450) k/uL Neutrophils % 61 % Lymphocytes % 32 % Monocytes % 4 % Eosinophils % 1 % Basophils % 0 % Neutrophils # 2.9 (1.3-7.7) k/uL Lymphocytes # 1.5 (1.0-4.8) k/uL Monocytes # 0.2 (0-1.0) k/uL Eosinophils # 0.1 (0-0.7) k/uL Basophils # 0.0 (0-0.2) k/uL PT (9.0-12.0) sec INR (<1.2) APTT (22.0-30.0) sec Sodium (137-145) mmol/L Potassium (3.5-5.1) mmol/L Chloride (98-107) mmol/L Carbon Dioxide (22-30) mmol/L Anion Gap mmol/L BUN (9-20) mg/dL Creatinine (0.66-1.25) mg/dL Est GFR (CKD-EPI)AfAm (>60 ml/min/1.73 sqM) Est GFR (CKD-EPI)NonAf (>60 ml/min/1.73 sqM) Glucose (74-99) mg/dL Plasma Lactic Acid Kyle (0.7-2.0) mmol/L Calcium (8.4-10.2) mg/dL Magnesium (1.6-2.3) mg/dL Total Bilirubin (0.2-1.3) mg/dL AST (17-59) U/L ALT (21-72) U/L Alkaline Phosphatase (38-126) U/L Total Creatine Kinase 28 L (55-170) U/L CK-MB (CK-2) 1.5 (0.0-2.4) ng/mL CK-MB (CK-2) Rel Index 5.4 Troponin I <0.012 (0.000-0.034) ng/mL Total Protein (6.3-8.2) g/dL Albumin (3.5-5.0) g/dL Urine Color Yellow Urine Appearance Clear (Clear) Urine pH 7.0 (5.0-8.0) Ur Specific [place] 1.013 (1.001-1.035) Urine Protein Negative (Negative) Urine Glucose (UA) Negative (Negative) Urine Ketones Negative (Negative) Urine Blood Negative (Negative) Urine Nitrite Negative (Negative) Urine Bilirubin Negative (Negative) Urine Urobilinogen 2.0 (<2.0) mg/dL Ur Leukocyte Esterase Trace H (Negative) Urine RBC 1 (0-5) /hpf Urine WBC 4 (0-5) /hpf Urine Bacteria Rare H (None) /hpf Urine Mucus Rare H (None) /hpf 09/08/17 09/08/17 09/08/17 Range/Units 15:44 15:44 15:44 WBC (3.8-10.6) k/uL RBC (4.30-5.90) m/uL Hgb (13.0-17.5) gm/dL Hct (39.0-53.0) % MCV (80.0-100.0) fL MCH (25.0-35.0) pg MCHC (31.0-37.0) g/dL RDW (11.5-15.5) % Plt Count (150-450) k/uL Neutrophils % % Lymphocytes % % Monocytes % % Eosinophils % % Basophils % % Neutrophils # (1.3-7.7) k/uL Lymphocytes # (1.0-4.8) k/uL Monocytes # (0-1.0) k/uL Eosinophils # (0-0.7) k/uL Basophils # (0-0.2) k/uL PT 10.9 (9.0-12.0) sec INR 1.1 (<1.2) APTT 25.0 (22.0-30.0) sec Sodium 142 (137-145) mmol/L Potassium 3.8 (3.5-5.1) mmol/L Chloride 106 (98-107) mmol/L Carbon Dioxide 25 (22-30) mmol/L Anion Gap 11 mmol/L BUN 14 (9-20) mg/dL Creatinine 0.53 L (0.66-1.25) mg/dL Est GFR (CKD-EPI)AfAm >90 (>60 ml/min/1.73 sqM) Est GFR (CKD-EPI)NonAf >90 (>60 ml/min/1.73 sqM) Glucose 90 (74-99) mg/dL Plasma Lactic Acid Kyle 0.7 (0.7-2.0) mmol/L Calcium 9.0 (8.4-10.2) mg/dL Magnesium 1.5 L (1.6-2.3) mg/dL Total Bilirubin 1.3 (0.2-1.3) mg/dL AST 18 (17-59) U/L ALT 20 L (21-72) U/L Alkaline Phosphatase 60 (38-126) U/L Total Creatine Kinase (55-170) U/L CK-MB (CK-2) (0.0-2.4) ng/mL CK-MB (CK-2) Rel Index Troponin I (0.000-0.034) ng/mL Total Protein 5.9 L (6.3-8.2) g/dL Albumin 3.7 (3.5-5.0) g/dL Urine Color Urine Appearance (Clear) Urine pH (5.0-8.0) Ur Specific [place] (1.001-1.035) Urine Protein (Negative) Urine Glucose (UA) (Negative) Urine Ketones (Negative) Urine Blood (Negative) Urine Nitrite (Negative) Urine Bilirubin (Negative) Urine Urobilinogen (<2.0) mg/dL Ur Leukocyte Esterase (Negative) Urine RBC (0-5) /hpf Urine WBC (0-5) /hpf Urine Bacteria (None) /hpf Urine Mucus (None) /hpf Disposition Clinical Impression: Symptomatic Parkinson disease Disposition: ADMITTED IP TO THIS HOSP Referrals: Pete Henriquez MD [Primary Care Provider] - 1-2 days Time of Disposition: 16:50
--- NOTE | 2017-09-08 15:46 | XR ---
EXAMINATION TYPE: XR chest 2V DATE OF EXAM: 09/08/2017 COMPARISON: CXR from 1 week ago. Outside CTA chest June 08, 2017. HISTORY: Weakness and shortness of breath. TECHNIQUE: Frontal and lateral views of the chest are obtained. FINDINGS: There is no focal air space opacity, pleural effusion, or pneumothorax seen. The cardiac silhouette size is within normal limits. The osseous structures are intact. Cholecystectomy clips are redemonstrated. IMPRESSION: No acute cardiopulmonary process. No significant change from prior.
[2017-09-08 15:51] LABS: Appearance,Urine Clear (Clear); Bacteria,Urine Rare /hpf; Bilirubin,Urine Negative (Negative); Blood,Urine Negative (Negative); Color,Urine Yellow; Glucose,Urine (UA) Negative (Negative); Ketones,Urine Negative (Negative); Leukocyte Esterase,Urine Trace (Negative); Mucus,Urine Rare /hpf; Nitrite,Urine Negative (Negative); Protein,Urine Negative (Negative); RBC,Urine 1 /hpf (0-5); Specific Gravity,Urine 1.013 (1.001-1.035); WBC,Urine 4 /hpf (0-5)
[2017-09-08 15:54] LABS: Basophils % (A) 0 %; Eosinophils # (A) 0.1 k/uL (0-0.7); Eosinophils % (A) 1 %; HCT 37.5 % (39.0-53.0); Lymphocytes # (A) 1.5 k/uL (1.0-4.8); Lymphocytes % (A) 32 %; MCH 30.9 pg (25.0-35.0); MCHC 34.7 g/dL (31.0-37.0); MCV 88.9 fL (80.0-100.0); Mean Platelet Volume 6.5; Monocytes # (A) 0.2 k/uL (0-1.0); Monocytes % (A) 4 %; Neutrophils # (A) 2.9 k/uL (1.3-7.7); Neutrophils % (A) 61 %; Platelet Count 245 k/uL (150-450); RBC 4.22 m/uL (4.30-5.90); RDW 12.9 % (11.5-15.5); WBC 4.7 k/uL (3.8-10.6)
[2017-09-08 16:05] LABS: INR 1.1 (<1.2); Prothrombin Time 10.9 sec (9.0-12.0)
[2017-09-08 16:06] LABS: ALT 20 U/L (21-72); AST 18 U/L (17-59); Albumin 3.7 g/dL (3.5-5.0); Alkaline Phosphatase 60 U/L (38-126); Anion Gap 11 mmol/L; Blood Urea Nitrogen 14 mg/dL (9-20); Carbon Dioxide 25 mmol/L (22-30); Chloride 106 mmol/L (98-107); Glucose 90 mg/dL (74-99); Magnesium 1.5 mg/dL (1.6-2.3); Potassium 3.8 mmol/L (3.5-5.1); Sodium 142 mmol/L (137-145); Total Bilirubin 1.3 mg/dL (0.2-1.3); Total Protein 5.9 g/dL (6.3-8.2)
[2017-09-08 16:12] LABS: Creatine Kinase 28 U/L (55-170)
[2017-09-08 16:23] LABS: Creatine Kinase MB 1.5 ng/mL (0.0-2.4); Troponin I <0.012 ng/mL (0.000-0.034)
[2017-09-08] MEDS ORDERED: MAGNESIUM SULFATE-D5W PMX 1 GM in DEXTROSE/WATER 1 100ML.BAG IVPB ONE (16:41)
[2017-09-08] MEDS ORDERED: SENNOSIDES 8.6 MG TAB PO PRN (17:24)
[2017-09-08] MEDS ORDERED: CARBIDOPA-LEVODOPA 25-100 MG 1 EACH TAB PO SCH (18:00)
[2017-09-08] MEDS: SODIUM CHLORIDE 0.9% 1,000 ML IV ONE (18:07)
[2017-09-08] MEDS: ACETAMINOPHEN TAB 325 MG TAB PO PRN (18:39)
[2017-09-08] MEDS: CARBIDOPA-LEVODOPA 25-100 MG 1 EACH TAB PO SCH (18:41)
[2017-09-08] MEDS: ATENOLOL 50 MG TAB PO SCH (21:00)
[2017-09-08] MEDS: MEMANTINE 10 MG TAB PO SCH (21:00)
[2017-09-08] MEDS: TAMSULOSIN 0.4 MG CAP.ER.24H PO SCH (21:00)
[2017-09-08] MEDS: NIFEdipine XL 90 MG TAB.ER.24 PO SCH (21:00)
[2017-09-08] MEDS: QUEtiapine 50 MG TAB PO SCH (21:00)
[2017-09-08] MEDS: clonazePAM 0.5 MG TAB PO SCH (21:00)
[2017-09-09] MEDS: ALPRAZolam 0.25 MG TAB PO PRN ×2 (00:49→15:27)
[2017-09-09] MEDS: ACETAMINOPHEN TAB 325 MG TAB PO PRN ×3 (04:21→16:57)
[2017-09-09] MEDS: CARBIDOPA-LEVODOPA 25-100 MG 1 EACH TAB PO SCH ×4 (06:41→21:23)
[2017-09-09] MEDS: ALPRAZolam 0.25 MG TAB PO SCH (08:18)
[2017-09-09] MEDS: MEMANTINE 10 MG TAB PO SCH ×2 (08:18→21:22)
[2017-09-09] MEDS: SERTRALINE 50 MG TAB PO SCH (08:18)
[2017-09-09] MEDS: ASPIRIN 81 MG PO SCH (08:18)
[2017-09-09] MEDS: PANTOPRAZOLE 40 MG TABLET PO SCH (08:18)
[2017-09-09 09:52] VITALS: BMI 18.3
[2017-09-09] MEDS ORDERED: DIAZEPAM 5 MG TAB PO STA (14:06)
--- NOTE | 2017-09-09 15:26 | P.HPIM ---
History of Present Illness H&P Date: 09/09/17 Chief Complaint: Unable to get out of bed burning pain in the legs 67-year-old pleasant gentleman one of Dr. Henriquez with a previous medical history significant for CAD post-PCI back in 2016, hypertension and hypertensive cardio vascular disease, hyperlipidemia, Parkinson disease, impaired mobility and gait secondary to shuffling gait followed by Dr. Giuliano aguirre and Dr. Nieto [facility] neurology. He was seen in emergency room secondary to gait impairment, unable to get out of bed. She normally falls, uses a walker mainly, no scooter or a power chair in the house, and is currently in a private residence he trying to sell their home to move into assisted living this summer. He she describes as having multiple sports injuries in the past, has had cervical disc and lumbar disc problems all his life for the past 40 years, and had his last shot from Dr. Vallecillo for his neck and 05/2017 for epidural steroid injections. He goes to a chiropractor for his low back pain. Patient describes the leg discomfort as burning, right more than left, patient was having back pain issues, no upper extremity motor strength difference, however he does have tremors in the upper hand. Patient was seen laying down in bed, he states that the pain pain sheet of blanket on top of his leg is too heavy for him to lift his leg againstit patient was subsequently seen in the emergency room secondary to his difficulty in getting out of bed. He has significant tremors in the upper right extremity , and refused to have his Sinemet adjusted to 4 times a day as instructed by his [facility] from neurologist. He is maintained on Sinemet 25/100 one tab 3 times a day the significant tremors noted on the upper extremity prior to admission patient cannot recall of any new or other drugs tried to control his Parkinson's. His dose was increased in the past 26 times a day when he developed anxiety and hallucinations. He was admitted to the mental health unit July 2017 he was last admitted from our facility 09/01/2017 secondary to chest pain cleared by cardiology. Patient denies any aspiration events, no significant dysphagia however patient tends to swallow his food quickly Emergency room, urinalysis is unremarkable INR is 1.1 WBC 4.7, creatinine 0.53, magnesium 1.5 no CAT scan of the brain was obtained EKG normal sinus rhythm right bundle branch block and chest x-ray showing no acute cardio pulmonary process, Review of Systems Constitutional: Reports as per HPI, Reports chronic pain, Denies anorexia, Denies chills, Denies chronic headaches, Denies daytime sleepiness, Denies fatigue, Denies fever, Denies lethargy, Denies malaise, Denies night sweats, Denies poor appetite, Denies sweats, Denies weakness, Denies weight gain, Denies weight loss Ears, nose, mouth and throat: Reports as per HPI, Denies ant. neck pain, Denies bleeding gums, Denies dental pain, Denies dysphagia, Denies epistaxis, Denies headache, Denies hoarseness, Denies mouth pain, Denies nasal congestion, Denies nasal discharge, Denies neck fullness/pressure, Denies neck lump, Denies nose pain, Denies odynophagia, Denies post-nasal drip, Denies sinus pain, Denies sinus pressure, Denies swelling in mouth, Denies swelling in throat, Denies sore throat, Denies vertigo, Denies voice changes Cardiovascular: Reports as per HPI, Denies chest pain, Denies claudication, Denies decreased exercise tolerance, Denies dyspnea on exertion, Denies edema, Denies high blood pressure, Denies irregular heart beat, Denies leg edema, Denies lightheadedness, Denies orthopnea, Denies palpitations, Denies paroxysmal nocturnal dyspnea, Denies phlebitis, Denies rapid heart beat, Denies shortness of breath, Denies syncope Respiratory: Reports as per HPI Gastrointestinal: Reports as per HPI, Denies abdominal pain, Denies belching, Denies bloating, Denies BRBPR, Denies change in bowel habits, Denies coffee ground emesis, Denies constipation, Denies diarrhea, Denies dyspepsia, Denies early satiety, Denies excessive gas, Denies heartburn, Denies hematemesis, Denies hematochezia, Denies indigestion, Denies jaundice, Denies lactose intolerance, Denies loss of appetite, Denies melena, Denies nausea, Denies vomiting Genitourinary: Reports as per HPI, Reports decreased libido, Reports incontinence, Denies hematuria Musculoskeletal: Reports as per HPI, Reports frequent falls, Reports gait dysfunction, Reports leg numbness/tingling, Reports limitation of motion, Reports low back pain, Reports muscle cramps, Reports muscle weakness, Reports shooting leg pain, Denies arm numbness/tingling, Denies atrophy, Denies fractures, Denies hot joints, Denies loss of height, Denies morning stiffness, Denies myalgias, Denies neck pain, Denies neck stiffness, Denies prior amputations, Denies redness of joints, Denies shooting arm pain Integumentary: Reports as per HPI, Denies acne, Denies boils, Denies brittle nails, Denies change in hair/nails, Denies color changes, Denies darkening of skin, Denies depigmentation, Denies dryness, Denies foot/leg ulcers, Denies growths, Denies hirsutism, Denies lesions, Denies onychomycosis, Denies pruritus , Denies rash, Denies sores, Denies striae, Denies unusual bruising, Denies wounds Neurological: Reports as per HPI, Reports tremors, Reports weakness Psychiatric: Reports as per HPI Endocrine: Reports as per HPI, Denies cold intolerance, Denies deepening of the voice, Denies excessive sweating, Denies excessive thirst, Denies fatigue, Denies flushing, Denies heat intolerance, Denies high blood sugars, Denies increase in ring/shoe/hat size, Denies low blood sugars, Denies nocturia, Denies palpitations, Denies polydipsia, Denies polyphagia, Denies polyuria, Denies proptosis, Denies recent glucocorticoid use, Denies thyroid mass, Denies weight change Hematologic/Lymphatic: Denies as per HPI, Denies easy bleeding, Denies easy bruising, Denies lymphadenopathy, Denies lymphedema, Denies thrombophilia Allergic/Immunologic: Reports as per HPI, Denies allergic rhinitis, Denies anaphylaxis, Denies angioedema, Denies gluten intolerance, Denies persistent infections, Denies seasonal allergies, Denies urticaria, Denies wheezing Past Medical History Past Medical History: Coronary Artery Disease (CAD), Chest Pain / Angina, GERD/ Reflux, Hyperlipidemia, Hypertension, Neurologic Disorder, Osteoarthritis (OA), Prostate Disorder Additional Past Medical History / Comment(s): Parkinsons. Small hiatal hernia, diverticulosis, gastritis, low grade distal esophagitis, chronic sinusitis, low back pain and bilateral hip pain with bilateral leg weakness-has been seeing a chiropractor. History of Any Multi-Drug Resistant Organisms: None Reported Past Surgical History: Adenoidectomy, Cholecystectomy, Heart Catheterization With Stent, Orthopedic Surgery, Tonsillectomy Additional Past Surgical History / Comment(s): VASECTOMY, Circumcism, RIGHT SHOULDER arthrotomy, lasik surgery bilateral eyes, EGD's amd colonoscopies now q 5 yrs (originally had some precancerous spots in colon). Past Anesthesia/Blood Transfusion Reactions: No Reported Reaction Date of Last Stent Placement:: 11/06/2015 Past Psychological History: No Psychological Hx Reported, Anxiety, Panic Disorder Additional Psychological History / Comment(s): Pt resides with his spouse. 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 He is independent. Smoking Status: Former smoker Past Alcohol Use History: None Reported Additional Past Alcohol Use History / Comment(s): Patient was a smoker for 5 years 1 pack per day and quit in 1970. He denies any medical marijuana, marijuana street drug use. He drinks alcohol occasionally. He recently retired in January 2015 after 46 years as a mounted police officer. Past Drug Use History: None Reported - Past Family History Father Family Medical History: Cancer, Dementia Additional Family Medical History / Comment(s): Father at the age of 64 yrs from dementia and had bladder cancer. Mother Family Medical History: Cancer Additional Family Medical History / Comment(s): Mother at age 63 with cancer believed to start in her leg with metastatic disease to the lung and brain. Patient does not have any siblings. Patient has 2 daughters and 1 son with no major medical problems. Medications and Allergies Home Medications Medication Instructions Recorded Confirmed Type Atenolol 50 mg PO HS 11/06/15 09/08/17 History NIFEdipine [Adalat cc] 90 mg PO HS 11/06/15 09/08/17 History Omeprazole [PriLOSEC] 20 mg PO DAILY 11/06/15 09/08/17 History ALPRAZolam [Xanax] 0.25 mg PO QAM 07/17/17 09/08/17 History Sertraline HCl [Zoloft] 50 mg PO DAILY 07/17/17 09/08/17 History Tamsulosin [Flomax] 0.4 mg PO HS 07/17/17 09/08/17 History QUEtiapine [SEROquel] 50 mg PO HS #14 tab 07/25/17 09/08/17 Rx ALPRAZolam [Xanax] 0.25 mg PO DIRECTED PRN 09/01/17 09/08/17 History Carbidopa-Levodopa 25-100 mg 1 tab PO TID@07,12,17 09/01/17 09/08/17 History [Sinemet 25-100 mg] Memantine [Namenda] 10 mg PO DIRECTED 09/01/17 09/08/17 History Sennosides [Senna] 8.6 mg PO HS PRN 09/01/17 09/08/17 History clonazePAM [KlonoPIN] 0.25 mg PO HS 09/01/17 09/08/17 History Aspirin 81 mg PO DAILY chew 09/02/17 09/08/17 Rx Allergies Allergy/AdvReac Type Severity Reaction Status Date / Time acetaminophen Allergy Swelling Verified 09/08/17 14:39 [From Tylenol PM] diphenhydramine Allergy Unknown Verified 09/08/17 14:39 [From Advil PM] ibuprofen [From Advil PM] Allergy Unknown Verified 09/08/17 14:39 Iodinated Contrast- Oral and Allergy Unknown Verified 09/08/17 14:39 IV Dye Sulfa (Sulfonamide Allergy Anaphylaxis Verified 09/08/17 14:39 Antibiotics) Physical Exam Vitals: Vital Signs Temp Pulse Pulse Resp BP BP Pulse Ox 09/09/17 06:25 98.2 F 69 16 110/66 96 09/09/17 00:50 97.2 F L 68 18 138/80 96 09/08/17 18:42 98.2 F 70 14 151/72 98 09/08/17 16:52 69 18 163/82 98 09/08/17 16:02 65 126/83 97 Intake and Output 09/09/17 09/09/17 09/09/17 06:59 14:59 22:59 Intake Total 600 Output Total 500 Balance 100 Intake: Oral 600 Output: Urine 500 Straight 500 Other: Voiding Method Diaper Incontinent # Voids 2 # Bowel Movements 1 Weight 63.049 kg - Constitutional General appearance: cooperative, no acute distress - EENT Eyes: anicteric sclerae, EOMI, PERRLA, dentition normal, normal appearance ENT: NA/AT, normal oropharynx - Neck Neck: normal ROM - Respiratory Respiratory: bilateral: CTA, negative: diminished, dullness, rales - Cardiovascular Rhythm: regular Heart sounds: normal: S1, S2 Abnormal Heart Sounds: no systolic murmur, no diastolic murmur, no rub, no S3 Gallop, no S4 Gallop, no click, no other - Gastrointestinal General gastrointestinal: normal bowel sounds, soft - Integumentary Integumentary: decreased turgor, normal - Neurologic Neurologic: CNII-XII intact - Musculoskeletal Musculoskeletal: generalized weakness, strength equal bilaterally - Psychiatric Psychiatric: A&O x's 3, appropriate affect, intact judgment & insight Results CBC & Chem 7: 09/08/17 15:44 09/08/17 15:44 Labs: Abnormal Lab Results - Last 24 Hours (Table) 09/08/17 09/08/17 09/08/17 Range/Units 15:35 15:44 15:44 RBC 4.22 L (4.30-5.90) m/uL Hct 37.5 L (39.0-53.0) % Creatinine (0.66-1.25) mg/dL Magnesium (1.6-2.3) mg/dL ALT (21-72) U/L Total Creatine Kinase 28 L (55-170) U/L Total Protein (6.3-8.2) g/dL Ur Leukocyte Esterase Trace H (Negative) Urine Bacteria Rare H (None) /hpf Urine Mucus Rare H (None) /hpf 09/08/17 Range/Units 15:44 RBC (4.30-5.90) m/uL Hct (39.0-53.0) % Creatinine 0.53 L (0.66-1.25) mg/dL Magnesium 1.5 L (1.6-2.3) mg/dL ALT 20 L (21-72) U/L Total Creatine Kinase (55-170) U/L Total Protein 5.9 L (6.3-8.2) g/dL Ur Leukocyte Esterase (Negative) Urine Bacteria (None) /hpf Urine Mucus (None) /hpf Laboratory Results WBC 4.7 k/uL (3.8-10.6) 09/08/17 15:44 RBC 4.22 m/uL (4.30-5.90) L 09/08/17 15:44 Hgb 13.0 gm/dL (13.0-17.5) 09/08/17 15:44 Hct 37.5 % (39.0-53.0) L 09/08/17 15:44 MCV 88.9 fL (80.0-100.0) 09/08/17 15:44 MCH 30.9 pg (25.0-35.0) 09/08/17 15:44 MCHC 34.7 g/dL (31.0-37.0) 09/08/17 15:44 RDW 12.9 % (11.5-15.5) 09/08/17 15:44 Plt Count 245 k/uL (150-450) 09/08/17 15:44 Neutrophils % 61 % 09/08/17 15:44 Lymphocytes % 32 % 09/08/17 15:44 Monocytes % 4 % 09/08/17 15:44 Eosinophils % 1 % 09/08/17 15:44 Basophils % 0 % 09/08/17 15:44 Neutrophils # 2.9 k/uL (1.3-7.7) 09/08/17 15:44 Lymphocytes # 1.5 k/uL (1.0-4.8) 09/08/17 15:44 Monocytes # 0.2 k/uL (0-1.0) 09/08/17 15:44 Eosinophils # 0.1 k/uL (0-0.7) 09/08/17 15:44 Basophils # 0.0 k/uL (0-0.2) 09/08/17 15:44 PT 10.9 sec (9.0-12.0) 09/08/17 15:44 INR 1.1 (<1.2) 09/08/17 15:44 APTT 25.0 sec (22.0-30.0) 09/08/17 15:44 Sodium 142 mmol/L (137-145) 09/08/17 15:44 Potassium 3.8 mmol/L (3.5-5.1) 09/08/17 15:44 Chloride 106 mmol/L (98-107) 09/08/17 15:44 Carbon Dioxide 25 mmol/L (22-30) 09/08/17 15:44 Anion Gap 11 mmol/L 09/08/17 15:44 BUN 14 mg/dL (9-20) 09/08/17 15:44 Creatinine 0.53 mg/dL (0.66-1.25) L 09/08/17 15:44 Est GFR (CKD-EPI)AfAm >90 (>60 ml/min/1.73 sqM) 09/08/17 15:44 Est GFR (CKD-EPI)NonAf >90 (>60 ml/min/1.73 sqM) 09/08/17 15:44 Glucose 90 mg/dL (74-99) 09/08/17 15:44 Plasma Lactic Acid Kyle 0.7 mmol/L (0.7-2.0) 09/08/17 15:44 Calcium 9.0 mg/dL (8.4-10.2) 09/08/17 15:44 Magnesium 1.5 mg/dL (1.6-2.3) L 09/08/17 15:44 Total Bilirubin 1.3 mg/dL (0.2-1.3) 09/08/17 15:44 AST 18 U/L (17-59) 09/08/17 15:44 ALT 20 U/L (21-72) L 09/08/17 15:44 Alkaline Phosphatase 60 U/L (38-126) 09/08/17 15:44 Total Creatine Kinase 28 U/L (55-170) L 09/08/17 15:44 CK-MB (CK-2) 1.5 ng/mL (0.0-2.4) 09/08/17 15:44 CK-MB (CK-2) Rel Index 5.4 09/08/17 15:44 Troponin I <0.012 ng/mL (0.000-0.034) 09/08/17 15:44 Total Protein 5.9 g/dL (6.3-8.2) L 09/08/17 15:44 Albumin 3.7 g/dL (3.5-5.0) 09/08/17 15:44 Urine Color Yellow 09/08/17 15:35 Urine Appearance Clear (Clear) 09/08/17 15:35 Urine pH 7.0 (5.0-8.0) 09/08/17 15:35 Ur Specific Pinon 1.013 (1.001-1.035) 09/08/17 15:35 Urine Protein Negative (Negative) 09/08/17 15:35 Urine Glucose (UA) Negative (Negative) 09/08/17 15:35 Urine Ketones Negative (Negative) 09/08/17 15:35 Urine Blood Negative (Negative) 09/08/17 15:35 Urine Nitrite Negative (Negative) 09/08/17 15:35 Urine Bilirubin Negative (Negative) 09/08/17 15:35 Urine Urobilinogen 2.0 mg/dL (<2.0) 09/08/17 15:35 Ur Leukocyte Esterase Trace (Negative) H 09/08/17 15:35 Urine RBC 1 /hpf (0-5) 09/08/17 15:35 Urine WBC 4 /hpf (0-5) 09/08/17 15:35 Urine Bacteria Rare /hpf (None) H 09/08/17 15:35 Urine Mucus Rare /hpf (None) H 09/08/17 15:35 Thrombosis Risk Factor Assmnt - DVT/VTE Prophylaxis DVT/VTE Prophylaxis: Pharmacologic Prophylaxis ordered - Choose All That Apply Each Factor Represents 1 point: Medical pt on bed rest Each Risk Factor Represents 2 Points: Age 61-74 years, Patient confined to bed Thrombosis Risk Factor Assessment Total Risk Factor Score: 5 Thrombosis Risk Factor Assessment Level: High Risk Assessment and Plan Plan: 1. Impaired mobility unable to get up from bed most likely multifactorial, advanced debility secondary to Parkinson's, and spinal stenosis with neuralgia right more than left, patient will be seen by Dr. Nobles neurology increase Sinemet 25/100 4 times a day, other drugs are under consideration including amantadine or Depakote, this will be decided upon by neurology, patient was seen by physical therapy, request spinal MRI lumbar area to evaluate for significant spinal stenosis, patient might need epidural steroid injection lumbar spine start gabapentin 100 mg 3 times a day. He might not do well with oral tapering prednisone dose is secondary to episodes of psychosis in the past. 2. . History of CAD post-PCI in the past. Continue treatment as in paragraph # 1. 3. Hypertension and hypertensive cardiovascular disease. Continue atenolol 50 mg orally once every day and nifedipine 30 mg orally 3 times every day. 4. Parkinson disease with history of psychosis and falls history . increased dosing Sinemet 25/100 one tablet orally 4 times every day instead of one tab 3 times a day maintain Seroquel maintain Xanax every morning and Klonopin 0.25 mg at bedtime . 5. Dementia. Continue patient on Namenda 10 mg orally once every day. 6. Anxiety disorder with panic attacks. Continue patient on Zoloft 25 mg orally once every day, Klonopin 0.5 mg at bedtime along with the Xanax as needed. Seroquel 50 mg at bedtime 7. Enlarged prostate. Continue patient on Flomax 0.4 mg orally once every day. 8. DVT prophylaxis. Lovenox 40 daily 9. GI prophylaxis. Continue patient on PPI. 10. BPH without lower tract symptomatology on Flomax 0.4 daily and monitor for orthostasis and urinary retention 7. Hypomagnesemia replacement Inpatient status anticipated, patient currently is under observation, discharged to skilled ECF anticipated.
[2017-09-09] MEDS: MAGNESIUM OXIDE 400 MG TAB PO SCH (16:58)
[2017-09-09] MEDS: ENOXAPARIN 40 MG/0.4 ML SYRINGE SQ SCH (16:59)
[2017-09-09] MEDS: GABAPENTIN 100 MG CAP PO SCH ×2 (16:59→21:23)
[2017-09-09] MEDS: NIFEdipine XL 90 MG TAB.ER.24 PO SCH (21:22)
[2017-09-09] MEDS: ATENOLOL 50 MG TAB PO SCH (21:22)
[2017-09-09] MEDS: clonazePAM 0.5 MG TAB PO SCH (21:22)
[2017-09-09] MEDS: TAMSULOSIN 0.4 MG CAP.ER.24H PO SCH (21:23)
[2017-09-09] MEDS: QUEtiapine 50 MG TAB PO SCH (21:23)
--- NOTE | 2017-09-09 21:33 | MR ---
EXAMINATION TYPE: MR lumbar spine wo/w con DATE OF EXAM: 09/09/2017 COMPARISON: CT abdomen and pelvis July 18, 2017 HISTORY: lumbar stenosis, parkinson's disease, tico leg weakness, back pain TECHNIQUE: Multiplanar, multisequence images of the lumbar spine is performed without and with IV contrast, util izing 6 mL intravenous Gadavist FINDINGS: There is slight dextroconvex scoliotic curvature centered in the upper to mid lumbar spine. Sagittal images of the lumbar spine show vertebral body heights to appear satisfactory. There is sli ght grade 1 retrolisthesis of L2 on L3. Multilevel disc desiccation is present. Multilevel disc narro wing is identified. There is moderate to advanced disc space narrowing L2-L3 level. There is moderate disc space narrowing with vacuum disc phenomenon L4-L5 level. There is mild to moderate disc space n arrowing L3-L4 and L5-S1 levels most prominent posteriorly. Multilevel posterior disc herniations are seen most prominent L2-L3 and L4-L5 levels on sagittal images. The conus medullaris is normal in pos ition and signal pending at T12-L1 disc space level. There is marked heterogeneity with predominantly endplate changes. No suspicious enhancement is seen. Mild scattered spurring is noted. Axial images show the T12-L1 level to appear within normal limits. Axial images at L1-L2 level show mild broad disc bulge and mild facet degenerative changes bilaterall y. There is minimal effacement of anterior thecal sac. Bilateral neural foramina are patent. Axial images at L2-L3 level show spondylolisthesis and broad-based posterior disc protrusion with zoie e effacement of the anterior thecal sac. There is mild to moderate left greater than right anterior i nferior neural foraminal narrowing. Axial images at L3-L4 level show mild to moderate right greater than left facet degenerative changes bilaterally. There is mild to moderate right greater than left anterior-inferior neural foraminal federico rowing at this level identified. Axial images at the L4-L5 level show mild to moderate right greater than left facet degenerative gonzalez ges. There is central disc protrusion effacing anterior thecal sac. There is moderate right and mild left-sided neural foraminal narrowing at this level seen. Axial images at L5-S1 level mild facet arthropathy. There is central disc protrusion mildly facing an terior thecal sac. Bilateral neural foramina are patent. There are several prominent central thin-walled cysts in both kidneys. IMPRESSION: Multilevel degenerative change in lumbar spine as detailed above.
--- NOTE | 2017-09-09 23:05 | CONS ---
CONSULTATION DATE OF CONSULTATION: 09/09/2017 CHIEF COMPLAINT: Parkinson's disease. HISTORY OF PRESENT ILLNESS: Mr. Pabon is a pleasant 67-year-old male who is being evaluated by the neurology service per the request of Dr. Mcintosh for Parkinson's disease. The patient was admitted to [facility] mainly for the complaints of lower extremity pain. He was noticed to be having significant tremor involving the right upper extremity. The patient does have history of Parkinson's disease and is on Sinemet 25/100 mg 3 times daily at home. His Sinemet dose was increased to 4 times daily on this admission. The patient denies any significant improvements in his symptoms with this change thus far. He was diagnosed with Parkinson's disease approximately 3 years ago, according to him, and he has been on Sinemet ever since. According to the chart, a CT scan of the brain was done which was normal. I did review his laboratory workup, and his CBC, comprehensive metabolic profile and cardiac enzymes were normal. His magnesium was slightly low at 1.5. His urinalysis showed 4 WBCs with trace leukocyte esterase. PAST MEDICAL HISTORY: 1. Parkinson's disease. 2. Coronary artery disease. 3. Gastroesophageal reflux disease. 4. Dyslipidemia. 5. Hypertension. 6. Arthritis. 7. Hiatal hernia. 8. Diverticulosis. 9. Gastritis. 10.Esophagitis. 11.Chronic sinusitis. 12.Chronic low back pain. 13.Chronic lower extremity weakness. 14.Anxiety disorder. 15.Panic disorder. 16.History of appendectomy. 17.Cholecystectomy. 18.Coronary artery stent placements. 19.Tonsillectomy. 20.Orthopedic surgeries. 21.Vasectomy. SOCIAL HISTORY: The patient is a former smoker. He denies any alcohol or drug use. FAMILY HISTORY: Positive for cancer and dementia. HOME MEDICATIONS: Reviewed in the chart. ALLERGIES: 1. TYLENOL. 2. ADVIL. 3. ORAL DYE. 4. IV DYE. 5. SULFA DRUGS. REVIEW OF SYSTEMS: CONSTITUTIONAL: Positive for fatigue. EYES: Negative. ENT: Negative. CARDIOVASCULAR: Negative. RESPIRATORY: Negative. NEUROLOGICAL: As mentioned above. GASTROINTESTINAL: Positive for frequent heartburn. GENITOURINARY: Positive for benign prostatic hypertrophy. PSYCHIATRIC: Positive for anxiety disorder. MUSCULOSKELETAL: As mentioned above. DERMATOLOGICAL: Negative. ENDOCRINE: Negative. PHYSICAL EXAMINATION: Vital signs show a temperature of 97.0, pulse 81, respirations 16, blood pressure 119/71. GENERAL APPEARANCE: The patient is a well-developed male who appears to be in no acute distress. HEENT: Normocephalic, atraumatic. No facial asymmetry is seen. NECK: Supple with no masses felt. CARDIOVASCULAR: Regular rate and rhythm. ABDOMEN: Nontender, nondistended. Extremities showed no edema or clubbing. NEUROLOGICAL EXAMINATION: The patient is awake and oriented x3. Speech and language are normal. Strength is 4 out of 5 in bilateral lower extremities and 5 minus out of 5 in bilateral upper extremities. A significant resting tremor is noticed in the right upper extremity. No postural tremors are seen. Cogwheel rigidity is seen in bilateral upper extremities. Sensory exam was normal to light touch in all 4 extremities. No facial asymmetry is seen on cranial nerve testing. IMPRESSION: 1. Parkinson's disease. 2. Worsening tremors. 3. Lower extremity pain and weakness, chronic. RECOMMENDATION: The patient's Parkinson's disease symptoms continue to be significant. His Sinemet was increased to 4 times daily on this admission. I had a lengthy discussion with him regarding various treatment options. I will start him on Requip 0.25 mg 3 times daily. This does need to be increased after his discharge. The patient does follow with a local neurologist, and he should follow up with him after his discharge. Continue the rest of your current workup and management. I will continue to follow with you. Further recommendations to follow. Thank you for allowing me to participate in the care of your patient. If you have any questions, please feel free to contact me. YUAN / LILIA: [id number] /
[2017-09-10] MEDS: PANTOPRAZOLE 40 MG TABLET PO SCH (08:15)
[2017-09-10 08:25] LABS: Basophils % (A) 1 %; Eosinophils # (A) 0.1 k/uL (0-0.7); Eosinophils % (A) 3 %; HCT 35.3 % (39.0-53.0); HGB 11.6 gm/dL (13.0-17.5); Lymphocytes # (A) 1.2 k/uL (1.0-4.8); Lymphocytes % (A) 30 %; MCH 29.8 pg (25.0-35.0); MCHC 32.8 g/dL (31.0-37.0); Mean Platelet Volume 6.8; Monocytes # (A) 0.2 k/uL (0-1.0); Monocytes % (A) 5 %; Neutrophils # (A) 2.4 k/uL (1.3-7.7); Neutrophils % (A) 60 %; Platelet Count 189 k/uL (150-450); RBC 3.88 m/uL (4.30-5.90); RDW 13.2 % (11.5-15.5); WBC 3.9 k/uL (3.8-10.6)
[2017-09-10 08:38] LABS: Anion Gap 7 mmol/L; Blood Urea Nitrogen 12 mg/dL (9-20); Calcium 8.3 mg/dL (8.4-10.2); Carbon Dioxide 27 mmol/L (22-30); Chloride 110 mmol/L (98-107); Glucose 80 mg/dL (74-99); Magnesium 1.7 mg/dL (1.6-2.3); Potassium 3.6 mmol/L (3.5-5.1); Sodium 144 mmol/L (137-145)
[2017-09-10] MEDS: GABAPENTIN 100 MG CAP PO SCH ×3 (09:03→20:38)
[2017-09-10] MEDS: ENOXAPARIN 40 MG/0.4 ML SYRINGE SQ SCH (09:04)
[2017-09-10] MEDS: CARBIDOPA-LEVODOPA 25-100 MG 1 EACH TAB PO SCH ×4 (09:04→20:38)
[2017-09-10] MEDS: ASPIRIN 81 MG PO SCH (09:04)
[2017-09-10] MEDS: SERTRALINE 50 MG TAB PO SCH (09:05)
[2017-09-10] MEDS: MAGNESIUM OXIDE 400 MG TAB PO SCH (09:05)
[2017-09-10] MEDS: ALPRAZolam 0.25 MG TAB PO SCH (09:05)
[2017-09-10] MEDS: MEMANTINE 10 MG TAB PO SCH ×2 (09:06→20:38)
[2017-09-10] MEDS: SODIUM CHLORIDE 0.9% 1,000 ML IV ONE (10:38)
[2017-09-10] MEDS: ACETAMINOPHEN TAB 325 MG TAB PO PRN ×2 (12:44→19:25)
[2017-09-10] MEDS: SODIUM CHLORIDE 0.9% 1,000 ML IV SCH (12:45)
--- NOTE | 2017-09-10 14:07 | P.PN ---
Subjective Progress Note Date: 09/10/17 Principal diagnosis: Parkinson's disease This is a pleasant 67-year-old male continuing to be evaluated in neurology service for Parkinson's disease. He was noticed to have significant tremor during an admission for lower extremity pain. His Sinemet has been increased from 3 times a day to 4 times daily. Requip was also added to help with his tremor and he seems to think that this is working. He has had no adverse side effects from the medication. Recall her CT of the brain was normal. At this time my exam he is resting comfortably in bed in no acute distress. Objective - Vital Signs Vital signs: Vital Signs Temp 97.8 F 09/10/17 07:00 Pulse 64 09/10/17 07:00 Resp 17 09/10/17 07:00 BP 149/73 09/10/17 07:00 Pulse Ox 97 09/10/17 07:00 Intake & Output 09/09/17 09/10/17 09/10/17 18:59 06:59 18:59 Weight 63.049 kg Other: Voiding Method Diaper Toilet Incontinent # Voids 2 1 # Bowel Movements 1 - Constitutional General appearance: Present: cooperative, no acute distress - EENT Eyes: Present: PERRLA. Absent: abnormal pupil, ptosis ENT: Present: hearing grossly normal - Neck Neck: Present: normal ROM. Absent: rigidity - Respiratory Respiratory: negative: prolonged expiration, prolonged inspiration - Cardiovascular Rhythm: regular - Gastrointestinal General gastrointestinal: Absent: distended, tenderness - Neurologic Neurologic Comment(s): Is alert awake and oriented 3. Speech-language are normal. [place] IV to 5 in bilateral lower extremities 5 minus out of 5 in bilateral upper extremities. I' ll do intermittent resting tremor persists in the right upper extremity. He has some cogwheel rigidity. Sensory deficit. There is no facial asymmetry. - Labs CBC & Chem 7: 09/10/17 08:01 09/10/17 08:01 Labs: Abnormal Lab Results - Last 24 Hours (Table) 09/10/17 09/10/17 Range/Units 08:01 08:01 RBC 3.88 L (4.30-5.90) m/uL Hgb 11.6 L (13.0-17.5) gm/dL Hct 35.3 L (39.0-53.0) % Chloride 110 H (98-107) mmol/L Creatinine 0.47 L (0.66-1.25) mg/dL Calcium 8.3 L (8.4-10.2) mg/dL Assessment and Plan (1) Resting tremor Current Visit: Yes Status: Chronic Code(s): R25.9 - UNSPECIFIED ABNORMAL INVOLUNTARY MOVEMENTS SNOMED Code(s): 05900224 (2) Lower extremity pain Current Visit: Yes Status: Chronic Code(s): M79.606 - PAIN IN LEG, UNSPECIFIED SNOMED Code(s): 94129801 (3) Lower extremity weakness Current Visit: Yes Status: Chronic Code(s): R29.898 - OTH SYMPTOMS AND SIGNS INVOLVING THE MUSCULOSKELETAL SYSTEM SNOMED Code(s): 972301745 (4) Chronic low back pain Current Visit: Yes Status: Chronic Code(s): M54.5 - LOW BACK PAIN; G89.29 - OTHER CHRONIC PAIN SNOMED Code(s): 300606675 (5) Symptomatic Parkinson disease Current Visit: Yes Status: Chronic Code(s): G20 - PARKINSON'S DISEASE SNOMED Code(s): 550049422 Plan: His Parkinson's symptoms including tremor have slightly improved since adjustment of medication. He will follow with his neurologist for titration of Requip to desired effect to help with his tremors. Sinemet can also be increased if needed. No further neurological testing is needed. He is cleared from a neurological standpoint to follow up with his neurologist. I have performed a history and physical on the above patient. I have reviewed the above note, and agree.
--- NOTE | 2017-09-10 14:25 | P.PN ---
Subjective Progress Note Date: 09/10/17 67-year-old pleasant gentleman one of Dr. Henriquez with a previous medical history significant for CAD post-PCI back in 2016, hypertension and hypertensive cardio vascular disease, hyperlipidemia, Parkinson disease, impaired mobility and gait secondary to shuffling gait followed by Dr. Giuliano aguirre and Dr. Nieto [facility] neurology. He was seen in emergency room secondary to gait impairment, unable to get out of bed. She normally falls, uses a walker mainly, no scooter or a power chair in the house, and is currently in a private residence he trying to sell their home to move into assisted living this summer. He she describes as having multiple sports injuries in the past, has had cervical disc and lumbar disc problems all his life for the past 40 years, and had his last shot from Dr. Vallecillo for his neck and 05/2017 for epidural steroid injections. He goes to a chiropractor for his low back pain. Patient describes the leg discomfort as burning, right more than left, patient was having back pain issues, no upper extremity motor strength difference, however he does have tremors in the upper hand. Patient was seen laying down in bed, he states that the pain pain sheet of blanket on top of his leg is too heavy for him to lift his leg againstit patient was subsequently seen in the emergency room secondary to his difficulty in getting out of bed. He has significant tremors in the upper right extremity , and refused to have his Sinemet adjusted to 4 times a day as instructed by his [facility] from neurologist. He is maintained on Sinemet 25/100 one tab 3 times a day the significant tremors noted on the upper extremity prior to admission patient cannot recall of any new or other drugs tried to control his Parkinson's. His dose was increased in the past 26 times a day when he developed anxiety and hallucinations. He was admitted to the mental health unit July 2017 he was last admitted from our facility 09/01/2017 secondary to chest pain cleared by cardiology. Patient denies any aspiration events, no significant dysphagia however patient tends to swallow his food quickly Emergency room, urinalysis is unremarkable INR is 1.1 WBC 4.7, creatinine 0.53, magnesium 1.5 no CAT scan of the brain was obtained EKG normal sinus rhythm right bundle branch block and chest x-ray showing no acute cardio pulmonary process, 5/11: Patient has been seen by Dr. Henriquez for Parkinson's with worsening tremors. He has started the patient on Requip 0.25 mg 3 times daily and he will need to follow-up with his neurologist to increase this dose. Sinemet has already been increased to 4 times daily An MRI of the lumbar spine revealed multilevel degenerative change in the lumbar spine. Discussed discharge planning with the patient. Patient was not aware the daughter had been looking into hospice care. He knows that this is inevitable. He is not sure if he wants to go to ECF. heavy equipment rental manager to follow-up. If patient requests to go to ECF, most likely discharge on Wednesday. Objective - Vital Signs Vital signs: Vital Signs Temp 97.8 F 09/10/17 07:00 Pulse 64 09/10/17 07:00 Resp 17 09/10/17 07:00 BP 149/73 09/10/17 07:00 Pulse Ox 97 09/10/17 07:00 Intake & Output 09/09/17 09/10/17 09/10/17 18:59 06:59 18:59 Weight 63.049 kg Other: Voiding Method Diaper Toilet Incontinent # Voids 2 1 # Bowel Movements 1 - Exam General appearance: cooperative, no acute distress - EENT Eyes: anicteric sclerae, EOMI, PERRLA, dentition normal, normal appearance ENT: NA/AT, normal oropharynx - Neck Neck: normal ROM - Respiratory Respiratory: bilateral: CTA, negative: diminished, dullness, rales - Cardiovascular Rhythm: regular Heart sounds: normal: S1, S2 Abnormal Heart Sounds: no systolic murmur, no diastolic murmur, no rub, no S3 Gallop, no S4 Gallop, no click, no other - Gastrointestinal General gastrointestinal: normal bowel sounds, soft - Integumentary Integumentary: decreased turgor, normal - Neurologic Neurologic: CNII-XII intact - Musculoskeletal Musculoskeletal: generalized weakness, strength equal bilaterally - Psychiatric Psychiatric: A&O x's 3, appropriate affect, intact judgment & insight - Labs CBC & Chem 7: 09/10/17 08:01 09/10/17 08:01 Labs: Abnormal Lab Results - Last 24 Hours (Table) 09/10/17 09/10/17 Range/Units 08:01 08:01 RBC 3.88 L (4.30-5.90) m/uL Hgb 11.6 L (13.0-17.5) gm/dL Hct 35.3 L (39.0-53.0) % Chloride 110 H (98-107) mmol/L Creatinine 0.47 L (0.66-1.25) mg/dL Calcium 8.3 L (8.4-10.2) mg/dL Assessment and Plan Plan: 1. Impaired mobility unable to get up from bed most likely multifactorial, advanced debility secondary to Parkinson's, and spinal stenosis with neuralgia right more than left, patient consult with Dr. Martinez burgos. He has added and Requip to be titrated as an outpatient by his neurologist. increase Sinemet 25/100 4 times a day, other drugs are under consideration including amantadine or Depakote, this will be decided upon by neurology, patient was seen by physical therapy, MRI lumbar revealed spinal stenosis, patient might need epidural steroid injection lumbar spine start gabapentin 100 mg 3 times a day. He might not do well with oral tapering prednisone dose is secondary to episodes of psychosis in the past. 2. History of CAD post-PCI in the past. Continue treatment as in paragraph # 1. 3. Hypertension and hypertensive cardiovascular disease. Continue atenolol 50 mg orally once every day and nifedipine 30 mg orally 3 times every day. 4. Parkinson disease with history of psychosis and falls history . increased dosing Sinemet 25/100 one tablet orally 4 times every day instead of one tab 3 times a day maintain Seroquel maintain Xanax every morning and Klonopin 0.25 mg at bedtime . 5. Dementia. Continue patient on Namenda 10 mg orally once every day. 6. Generalized anxiety disorder with panic attacks. Continue patient on Zoloft 25 mg orally once every day, Klonopin 0.5 mg at bedtime along with the Xanax as needed. Seroquel 50 mg at bedtime 7. Enlarged prostate. Continue patient on Flomax 0.4 mg orally once every day. 8. DVT prophylaxis. Lovenox 40 daily 9. GI prophylaxis. Continue patient on PPI. 10. BPH without lower tract symptomatology on Flomax 0.4 daily and monitor for orthostasis and urinary retention 7. Hypomagnesemia replacement Discharge plan: To be determined Impression and plan of care have been directed as dictated by the signing physician. Sapna Convery nurse practitioner acting as scribe for signing physician.
[2017-09-10] MEDS: TAMSULOSIN 0.4 MG CAP.ER.24H PO SCH (20:38)
[2017-09-10] MEDS: QUEtiapine 50 MG TAB PO SCH (20:42)
[2017-09-10] MEDS: clonazePAM 0.5 MG TAB PO SCH (20:44)
[2017-09-10] MEDS: NIFEdipine XL 90 MG TAB.ER.24 PO SCH (20:45)
[2017-09-10] MEDS: ATENOLOL 50 MG TAB PO SCH (20:45)
[2017-09-11] MEDS: SERTRALINE 50 MG TAB PO SCH (09:51)
[2017-09-11] MEDS: MAGNESIUM OXIDE 400 MG TAB PO SCH (09:51)
[2017-09-11] MEDS: ASPIRIN 81 MG PO SCH (09:51)
[2017-09-11] MEDS: GABAPENTIN 100 MG CAP PO SCH ×3 (09:51→20:20)
[2017-09-11] MEDS: ALPRAZolam 0.25 MG TAB PO SCH (09:51)
[2017-09-11] MEDS: ACETAMINOPHEN TAB 325 MG TAB PO PRN ×3 (09:51→21:39)
[2017-09-11] MEDS: ENOXAPARIN 40 MG/0.4 ML SYRINGE SQ SCH (09:52)
[2017-09-11] MEDS: PANTOPRAZOLE 40 MG TABLET PO SCH (09:52)
[2017-09-11] MEDS: CARBIDOPA-LEVODOPA 25-100 MG 1 EACH TAB PO SCH ×4 (09:52→20:20)
[2017-09-11] MEDS: MEMANTINE 10 MG TAB PO SCH ×2 (09:52→20:20)
[2017-09-11] MEDS: SODIUM CHLORIDE 0.9% 1,000 ML IV SCH (09:52)
--- NOTE | 2017-09-11 17:12 | P.PN ---
Subjective Progress Note Date: 09/11/17 67-year-old pleasant gentleman one of Dr. Henriquez with a previous medical history significant for CAD post-PCI back in 2016, hypertension and hypertensive cardio vascular disease, hyperlipidemia, Parkinson disease, impaired mobility and gait secondary to shuffling gait followed by Dr. Giuliano aguirre and Dr. Nieto [facility] neurology. He was seen in emergency room secondary to gait impairment, unable to get out of bed. She normally falls, uses a walker mainly, no scooter or a power chair in the house, and is currently in a private residence he trying to sell their home to move into assisted living this summer. He she describes as having multiple sports injuries in the past, has had cervical disc and lumbar disc problems all his life for the past 40 years, and had his last shot from Dr. Vallecillo for his neck and 05/2017 for epidural steroid injections. He goes to a chiropractor for his low back pain. Patient describes the leg discomfort as burning, right more than left, patient was having back pain issues, no upper extremity motor strength difference, however he does have tremors in the upper hand. Patient was seen laying down in bed, he states that the pain pain sheet of blanket on top of his leg is too heavy for him to lift his leg againstit patient was subsequently seen in the emergency room secondary to his difficulty in getting out of bed. He has significant tremors in the upper right extremity , and refused to have his Sinemet adjusted to 4 times a day as instructed by his [facility] from neurologist. He is maintained on Sinemet 25/100 one tab 3 times a day the significant tremors noted on the upper extremity prior to admission patient cannot recall of any new or other drugs tried to control his Parkinson's. His dose was increased in the past 26 times a day when he developed anxiety and hallucinations. He was admitted to the mental health unit July 2017 he was last admitted from our facility 09/01/2017 secondary to chest pain cleared by cardiology. Patient denies any aspiration events, no significant dysphagia however patient tends to swallow his food quickly Emergency room, urinalysis is unremarkable INR is 1.1 WBC 4.7, creatinine 0.53, magnesium 1.5 no CAT scan of the brain was obtained EKG normal sinus rhythm right bundle branch block and chest x-ray showing no acute cardio pulmonary process, 5/11: Patient has been seen by Dr. Henriquez for Parkinson's with worsening tremors. He has started the patient on Requip 0.25 mg 3 times daily and he will need to follow-up with his neurologist to increase this dose. Sinemet has already been increased to 4 times daily An MRI of the lumbar spine revealed multilevel degenerative change in the lumbar spine. Discussed discharge planning with the patient. Patient was not aware the daughter had been looking into hospice care. He knows that this is inevitable. He is not sure if he wants to go to ECF. manager research development to follow-up. If patient requests to go to ECF, most likely discharge on Wednesday. 09/11. Patient's feeling better with the initiation of Requip 0.25 mg 3 times daily along with Sinemet 4 times today. farmworker and pillowcase sewer working on patient's disposition as patient would like to go to [facility] Objective - Vital Signs Vital signs: Vital Signs Temp 98.0 F 09/11/17 14:16 Pulse 72 09/11/17 14:16 Resp 16 09/11/17 14:16 BP 119/69 09/11/17 14:16 Pulse Ox 97 09/11/17 16:15 Intake & Output 09/10/17 09/11/17 09/11/17 18:59 06:59 18:59 Intake Total 540 600 Balance 540 600 Weight 63.049 kg Intake: Intake, IV Titration 300 Amount Sodium Chloride 0.9% 1, 300 000 ml @ 50 mls/hr IV . Q20H [facility] Rx#:[id number] Oral 240 600 Other: Voiding Method Toilet Toilet # Voids 1 2 2 # Bowel Movements 1 2 - Exam General appearance: cooperative, no acute distress - EENT Eyes: anicteric sclerae, EOMI, PERRLA, dentition normal, normal appearance ENT: NA/AT, normal oropharynx - Neck Neck: normal ROM - Respiratory Respiratory: bilateral: CTA, negative: diminished, dullness, rales - Cardiovascular Rhythm: regular Heart sounds: normal: S1, S2 Abnormal Heart Sounds: no systolic murmur, no diastolic murmur, no rub, no S3 Gallop, no S4 Gallop, no click, no other - Gastrointestinal General gastrointestinal: normal bowel sounds, soft - Integumentary Integumentary: decreased turgor, normal - Neurologic Neurologic: CNII-XII intact - Musculoskeletal Musculoskeletal: generalized weakness, strength equal bilaterally - Psychiatric Psychiatric: A&O x's 3, appropriate affect, intact judgment & insight - Labs CBC & Chem 7: 09/10/17 08:01 09/10/17 08:01 Assessment and Plan Plan: 1. Impaired mobility unable to get up from bed most likely multifactorial, advanced debility secondary to Parkinson's, and spinal stenosis with neuralgia right more than left, patient consult with Dr. Henriquez appreciated. He has added and Requip to be titrated as an outpatient by his neurologist. increase Sinemet 25/100 4 times a day, other drugs are under consideration including amantadine or Depakote, this will be decided upon by neurology, patient was seen by physical therapy, MRI lumbar revealed spinal stenosis, patient might need epidural steroid injection lumbar spine start gabapentin 100 mg 3 times a day. He might not do well with oral tapering prednisone dose is secondary to episodes of psychosis in the past. 2. History of CAD post-PCI in the past. Continue treatment as in paragraph # 1. 3. Hypertension and hypertensive cardiovascular disease. Continue atenolol 50 mg orally once every day and nifedipine 30 mg orally 3 times every day. 4. Parkinson disease with history of psychosis and falls history . increased dosing Sinemet 25/100 one tablet orally 4 times every day instead of one tab 3 times a day maintain Seroquel maintain Xanax every morning and Klonopin 0.25 mg at bedtime . 5. Dementia. Continue patient on Namenda 10 mg orally once every day. 6. Generalized anxiety disorder with panic attacks. Continue patient on Zoloft 25 mg orally once every day, Klonopin 0.5 mg at bedtime along with the Xanax as needed. Seroquel 50 mg at bedtime 7. Enlarged prostate. Continue patient on Flomax 0.4 mg orally once every day. 8. DVT prophylaxis. Lovenox 40 daily 9. GI prophylaxis. Continue patient on PPI. 10. BPH without lower tract symptomatology on Flomax 0.4 daily and monitor for orthostasis and urinary retention 7. Hypomagnesemia replacement Discharge plan: To be determined
[2017-09-11] MEDS: QUEtiapine 50 MG TAB PO SCH (20:20)
[2017-09-11] MEDS: NIFEdipine XL 90 MG TAB.ER.24 PO SCH (20:20)
[2017-09-11] MEDS: clonazePAM 0.5 MG TAB PO SCH (20:20)
[2017-09-11] MEDS: ATENOLOL 50 MG TAB PO SCH (20:20)
[2017-09-11] MEDS: TAMSULOSIN 0.4 MG CAP.ER.24H PO SCH (20:20)
[2017-09-11] MEDS: ALPRAZolam 0.25 MG TAB PO PRN (21:39)
[2017-09-12] MEDS: ACETAMINOPHEN TAB 325 MG TAB PO PRN ×3 (06:16→19:12)
[2017-09-12 06:38] VITALS: RESP 16
[2017-09-12] MEDS: ALPRAZolam 0.25 MG TAB PO SCH (08:23)
[2017-09-12] MEDS: CARBIDOPA-LEVODOPA 25-100 MG 1 EACH TAB PO SCH ×4 (08:23→20:23)
[2017-09-12] MEDS: ENOXAPARIN 40 MG/0.4 ML SYRINGE SQ SCH (08:23)
[2017-09-12] MEDS: PANTOPRAZOLE 40 MG TABLET PO SCH (08:23)
[2017-09-12] MEDS: ASPIRIN 81 MG PO SCH (08:23)
[2017-09-12] MEDS: GABAPENTIN 100 MG CAP PO SCH ×3 (08:23→20:23)
[2017-09-12] MEDS: MAGNESIUM OXIDE 400 MG TAB PO SCH (08:24)
[2017-09-12] MEDS: SERTRALINE 50 MG TAB PO SCH (08:24)
[2017-09-12] MEDS: MEMANTINE 10 MG TAB PO SCH ×2 (08:24→20:23)
[2017-09-12] MEDS: ALPRAZolam 0.25 MG TAB PO PRN ×2 (16:02→21:59)
--- NOTE | 2017-09-12 16:02 | P.PN ---
Subjective Progress Note Date: 09/12/17 67-year-old pleasant gentleman one of Dr. Henriquez with a previous medical history significant for CAD post-PCI back in 2016, hypertension and hypertensive cardio vascular disease, hyperlipidemia, Parkinson disease, impaired mobility and gait secondary to shuffling gait followed by Dr. Giuliano aguirre and Dr. Nieto [facility] neurology. He was seen in emergency room secondary to gait impairment, unable to get out of bed. She normally falls, uses a walker mainly, no scooter or a power chair in the house, and is currently in a private residence he trying to sell their home to move into assisted living this summer. He she describes as having multiple sports injuries in the past, has had cervical disc and lumbar disc problems all his life for the past 40 years, and had his last shot from Dr. Vallecillo for his neck and 05/2017 for epidural steroid injections. He goes to a chiropractor for his low back pain. Patient describes the leg discomfort as burning, right more than left, patient was having back pain issues, no upper extremity motor strength difference, however he does have tremors in the upper hand. Patient was seen laying down in bed, he states that the pain pain sheet of blanket on top of his leg is too heavy for him to lift his leg againstit patient was subsequently seen in the emergency room secondary to his difficulty in getting out of bed. He has significant tremors in the upper right extremity , and refused to have his Sinemet adjusted to 4 times a day as instructed by his [facility] from neurologist. He is maintained on Sinemet 25/100 one tab 3 times a day the significant tremors noted on the upper extremity prior to admission patient cannot recall of any new or other drugs tried to control his Parkinson's. His dose was increased in the past 26 times a day when he developed anxiety and hallucinations. He was admitted to the mental health unit July 2017 he was last admitted from our facility 09/01/2017 secondary to chest pain cleared by cardiology. Patient denies any aspiration events, no significant dysphagia however patient tends to swallow his food quickly Emergency room, urinalysis is unremarkable INR is 1.1 WBC 4.7, creatinine 0.53, magnesium 1.5 no CAT scan of the brain was obtained EKG normal sinus rhythm right bundle branch block and chest x-ray showing no acute cardio pulmonary process, 5/11: Patient has been seen by Dr. Henriquez for Parkinson's with worsening tremors. He has started the patient on Requip 0.25 mg 3 times daily and he will need to follow-up with his neurologist to increase this dose. Sinemet has already been increased to 4 times daily An MRI of the lumbar spine revealed multilevel degenerative change in the lumbar spine. Discussed discharge planning with the patient. Patient was not aware the daughter had been looking into hospice care. He knows that this is inevitable. He is not sure if he wants to go to [facility]. manager provider relations to follow-up. If patient requests to go to ECF, most likely discharge on Wednesday. 09/11. Patient's feeling better with the initiation of Requip 0.25 mg 3 times daily along with Sinemet 4 times today. facility maintenance worker and mental health case manager working on patient's disposition as patient would like to go to [facility] 09/12 Patient assessed a tbedside. Does have tremor in the upper extremity which he has managed to control with the current regimen. IS able to walk with walker. manager provider relations to help family with [facility]. Objective - Vital Signs Vital signs: Vital Signs Temp 97.5 F L 09/12/17 14:40 Pulse 72 09/12/17 14:40 Resp 16 09/12/17 14:40 BP 109/68 09/12/17 14:40 Pulse Ox 98 09/12/17 14:40 Intake & Output 09/11/17 09/12/17 09/12/17 18:59 06:59 18:59 Intake Total 1200 1200 Balance 1200 1200 Intake: Oral 1200 1200 Other: Voiding Method Toilet # Voids 2 5 1 # Bowel Movements 2 2 - Exam General appearance: cooperative, no acute distress - EENT Eyes: anicteric sclerae, EOMI, PERRLA, dentition normal, normal appearance ENT: NA/AT, normal oropharynx - Neck Neck: normal ROM - Respiratory Respiratory: bilateral: CTA, negative: diminished, dullness, rales - Cardiovascular Rhythm: regular Heart sounds: normal: S1, S2 Abnormal Heart Sounds: no systolic murmur, no diastolic murmur, no rub, no S3 Gallop, no S4 Gallop, no click, no other - Gastrointestinal General gastrointestinal: normal bowel sounds, soft - Integumentary Integumentary: decreased turgor, normal - Neurologic Neurologic: CNII-XII intact - Musculoskeletal Musculoskeletal: generalized weakness, strength equal bilaterally - Psychiatric Psychiatric: A&O x's 3, appropriate affect, intact judgment & insight - Labs CBC & Chem 7: 09/10/17 08:01 09/10/17 08:01 Assessment and Plan Plan: 1. Impaired mobility unable to get up from bed most likely multifactorial, advanced debility secondary to Parkinson's, and spinal stenosis with neuralgia right more than left, patient consult with Dr. Henriquez appreciated. He has added and Requip to be titrated as an outpatient by his neurologist. increase Sinemet 25/100 4 times a day, other drugs are under consideration including amantadine or Depakote, this will be decided upon by neurology, patient was seen by physical therapy, MRI lumbar revealed spinal stenosis, patient might need epidural steroid injection lumbar spine start gabapentin 100 mg 3 times a day. He might not do well with oral tapering prednisone dose is secondary to episodes of psychosis in the past. 2. History of CAD post-PCI in the past. Continue treatment as in paragraph # 1. 3. Hypertension and hypertensive cardiovascular disease. Continue atenolol 50 mg orally once every day and nifedipine 30 mg orally 3 times every day. 4. Parkinson disease with history of psychosis and falls history . increased dosing Sinemet 25/100 one tablet orally 4 times every day instead of one tab 3 times a day maintain Seroquel maintain Xanax every morning and Klonopin 0.25 mg at bedtime . 5. Dementia. Continue patient on Namenda 10 mg orally once every day. 6. Generalized anxiety disorder with panic attacks. Continue patient on Zoloft 25 mg orally once every day, Klonopin 0.5 mg at bedtime along with the Xanax as needed. Seroquel 50 mg at bedtime 7. Enlarged prostate. Continue patient on Flomax 0.4 mg orally once every day. 8. DVT prophylaxis. Lovenox 40 daily 9. GI prophylaxis. Continue patient on PPI. 10. BPH without lower tract symptomatology on Flomax 0.4 daily and monitor for orthostasis and urinary retention 7. Hypomagnesemia replacement Discharge plan: tomorrow with [facility]
[2017-09-12] MEDS: clonazePAM 0.5 MG TAB PO SCH (20:22)
[2017-09-12] MEDS: NIFEdipine XL 90 MG TAB.ER.24 PO SCH (20:23)
[2017-09-12] MEDS: TAMSULOSIN 0.4 MG CAP.ER.24H PO SCH (20:23)
[2017-09-12] MEDS: QUEtiapine 50 MG TAB PO SCH (20:23)
[2017-09-12] MEDS: ATENOLOL 50 MG TAB PO SCH (20:23)
[2017-09-13] MEDS: ACETAMINOPHEN TAB 325 MG TAB PO PRN ×2 (06:08→11:36)
[2017-09-13 07:03] VITALS: BP 113/72; PULSE 71; TEMP 97.8
[2017-09-13] MEDS: ENOXAPARIN 40 MG/0.4 ML SYRINGE SQ SCH (08:35)
[2017-09-13] MEDS: CARBIDOPA-LEVODOPA 25-100 MG 1 EACH TAB PO SCH ×2 (08:35→13:34)
[2017-09-13] MEDS: ALPRAZolam 0.25 MG TAB PO SCH (08:35)
[2017-09-13] MEDS: ASPIRIN 81 MG PO SCH (08:36)
[2017-09-13] MEDS: GABAPENTIN 100 MG CAP PO SCH (08:36)
[2017-09-13] MEDS: MEMANTINE 10 MG TAB PO SCH (08:36)
[2017-09-13] MEDS: PANTOPRAZOLE 40 MG TABLET PO SCH (08:37)
[2017-09-13] MEDS: MAGNESIUM OXIDE 400 MG TAB PO SCH (08:37)
[2017-09-13] MEDS: SERTRALINE 50 MG TAB PO SCH (08:37)
--- NOTE | 2017-09-13 15:02 | P.DS ---
Providers Date of admission: 09/09/17 14:09 Expected date of discharge: 09/13/17 Attending physician: Flora Mcintosh Consults: 09/08/17 16:50 Consult Physician Urgent Consulting Provider: Thomas Henriquez Consult Reason/Comments: Parkinson's Do you want consulting provider notified?: Yes [facility] Course: 67-year-old pleasant gentleman one of Dr. Henriquez with a previous medical history significant for CAD post-PCI back in 2016, hypertension and hypertensive cardio vascular disease, hyperlipidemia, Parkinson disease, impaired mobility and gait secondary to shuffling gait followed by Dr. Giuliano aguirre and Dr. Nieto [facility] neurology. He was seen in emergency room secondary to gait impairment, unable to get out of bed. She normally falls, uses a walker mainly, no scooter or a power chair in the house, and is currently in a private residence he trying to sell their home to move into assisted living this summer. He she describes as having multiple sports injuries in the past, has had cervical disc and lumbar disc problems all his life for the past 40 years, and had his last shot from Dr. Vallecillo for his neck and 05/2017 for epidural steroid injections. He goes to a chiropractor for his low back pain. Patient describes the leg discomfort as burning, right more than left, patient was having back pain issues, no upper extremity motor strength difference, however he does have tremors in the upper hand. Patient was seen laying down in bed, he states that the pain pain sheet of blanket on top of his leg is too heavy for him to lift his leg againstit patient was subsequently seen in the emergency room secondary to his difficulty in getting out of bed. He has significant tremors in the upper right extremity , and refused to have his Sinemet adjusted to 4 times a day as instructed by his [facility] from neurologist. He is maintained on Sinemet 25/100 one tab 3 times a day the significant tremors noted on the upper extremity prior to admission patient cannot recall of any new or other drugs tried to control his Parkinson's. His dose was increased in the past 26 times a day when he developed anxiety and hallucinations. He was admitted to the mental health unit July 2017 he was last admitted from our facility 09/01/2017 secondary to chest pain cleared by cardiology. Patient denies any aspiration events, no significant dysphagia however patient tends to swallow his food quickly Emergency room, urinalysis is unremarkable INR is 1.1 WBC 4.7, creatinine 0.53, magnesium 1.5 no CAT scan of the brain was obtained EKG normal sinus rhythm right bundle branch block and chest x-ray showing no acute cardio pulmonary process, 09/10: Patient has been seen by Dr. Henriquez for Parkinson's with worsening tremors. He has started the patient on Requip 0.25 mg 3 times daily and he will need to follow-up with his neurologist to increase this dose. Sinemet has already been increased to 4 times daily An MRI of the lumbar spine revealed multilevel degenerative change in the lumbar spine. Discussed discharge planning with the patient. Patient was not aware the daughter had been looking into hospice care. He knows that this is inevitable. He is not sure if he wants to go to [facility]. manager branch to follow-up. If patient requests to go to [facility], most likely discharge on Wednesday. 09/11. Patient's feeling better with the initiation of Requip 0.25 mg 3 times daily along with Sinemet 4 times today. advertising layout worker and assistant case manager working on patient's disposition as patient would like to go to [facility] 09/12 Patient assessed a tbedside. Does have tremor in the upper extremity which he has managed to control with the current regimen. IS able to walk with walker. manager branch to help family with [facility]. 09/13: Discharge plan is for patient to return home with [facility]. New prescriptions have been sent to his pharmacy. Patient will be discharged home today in stable condition. Daughter is to make arrangements for assisted living , [facility] Discharge diagnoses: 1. Impaired mobility unable to get up from bed most likely multifactorial, advanced debility secondary to Parkinson's, and spinal stenosis with neuralgia right more than left 2. History of CAD post-PCI in the past. 3. Hypertension and hypertensive cardiovascular disease. 4. Parkinson disease with history of psychosis and falls history. 5. Dementia. 6. Generalized anxiety disorder with panic attacks. 7. Enlarged prostate. 8. BPH 7. Hypomagnesemia Discharge plan: home with [facility] Impression and plan of care have been directed as dictated by the signing physician. Sapna Mcconnell nurse practitioner acting as scribe for signing physician. Patient Condition at Discharge: Good Plan - Discharge Summary New Discharge Prescriptions: New Carbidopa-Levodopa 25-100 mg [Sinemet 25-100 mg] 1 each PO QID #120 tab Gabapentin [Neurontin] 100 mg PO TID #90 cap Magnesium Oxide [Mag-Ox] 400 mg PO DAILY tab rOPINIRole HCL [Requip] 0.25 mg PO TID #90 tab Continue Omeprazole [PriLOSEC] 20 mg PO DAILY Atenolol 50 mg PO HS NIFEdipine [Adalat cc] 90 mg PO HS ALPRAZolam [Xanax] 0.25 mg PO QAM Tamsulosin [Flomax] 0.4 mg PO HS Sertraline HCl [Zoloft] 50 mg PO DAILY QUEtiapine [SEROquel] 50 mg PO HS #14 tab Memantine [Namenda] 10 mg PO DIRECTED clonazePAM [KlonoPIN] 0.25 mg PO HS ALPRAZolam [Xanax] 0.25 mg PO DIRECTED PRN PRN Reason: Anxiety Sennosides [Senna] 8.6 mg PO HS PRN PRN Reason: Constipation Aspirin 81 mg PO DAILY chew Discontinued Carbidopa-Levodopa 25-100 mg [Sinemet 25-100 mg] 1 tab PO TID@07,,17 Discharge Medication List Atenolol 50 mg PO HS 11/06/15 [History] NIFEdipine [Adalat cc] 90 mg PO HS 11/06/15 [History] Omeprazole [PriLOSEC] 20 mg PO DAILY 11/06/15 [History] ALPRAZolam [Xanax] 0.25 mg PO QAM 07/17/17 [History] Sertraline HCl [Zoloft] 50 mg PO DAILY 07/17/17 [History] Tamsulosin [Flomax] 0.4 mg PO HS 07/17/17 [History] QUEtiapine [SEROquel] 50 mg PO HS #14 tab 07/25/17 [Rx] ALPRAZolam [Xanax] 0.25 mg PO DIRECTED PRN 09/01/17 [History] Memantine [Namenda] 10 mg PO DIRECTED 09/01/17 [History] Sennosides [Senna] 8.6 mg PO HS PRN 09/01/17 [History] clonazePAM [KlonoPIN] 0.25 mg PO HS 09/01/17 [History] Aspirin 81 mg PO DAILY chew 09/02/17 [Rx] Carbidopa-Levodopa 25-100 mg [Sinemet 25-100 mg] 1 each PO QID #120 tab [Rx] Gabapentin [Neurontin] 100 mg PO TID #90 cap 09/13/17 [Rx] Magnesium Oxide [Mag-Ox] 400 mg PO DAILY tab 09/13/17 [Rx] rOPINIRole HCL [Requip] 0.25 mg PO TID #90 tab 09/13/17 [Rx] Follow up Appointment(s)/Referral(s): Pete Henriquez MD [Primary Care Provider] - 09/17/17 1:30 pm Patient Instructions/Handouts: Parkinson Disease (DC) Activity/Diet/Wound Care/Special Instructions: [facility] [phone] Discharge Disposition: HOME WITH HOSPICE
== END 2017-09-13 14:39 | disposition hospice, home (50) | DRG 57 ==
LOC: EC 14:15 → 4MS4W 16:50 → INTOOBSV 16:50 → 4MS4W 17:33 → OBSVTOIN 09-09 14:09
PROVIDERS: ADMIT Family Medicine; ATTEND Family Medicine
DX: G20 Parkinson's disease (principal); E83.42 Hypomagnesemia; I11.9 Hypertensive heart disease without heart failure; F03.90 Unspecified dementia, unspecified severity, without behavioral disturbance, psychotic disturbance, mood disturbance, and anxiety; E78.5 Hyperlipidemia, unspecified; I45.10 Unspecified right bundle-branch block; G89.29 Other chronic pain; M48.062 Spinal stenosis, lumbar region with neurogenic claudication; I25.10 Atherosclerotic heart disease of native coronary artery without angina pectoris; M19.91 Primary osteoarthritis, unspecified site; K44.9 Diaphragmatic hernia without obstruction or gangrene; K21.0 Gastro-esophageal reflux disease with esophagitis; J32.9 Chronic sinusitis, unspecified; K29.70 Gastritis, unspecified, without bleeding; K57.90 Diverticulosis of intestine, part unspecified, without perforation or abscess without bleeding; N40.0 Benign prostatic hyperplasia without lower urinary tract symptoms; R26.9 Unspecified abnormalities of gait and mobility; F41.0 Panic disorder [episodic paroxysmal anxiety]; Z79.82 Long term (current) use of aspirin; Z79.899 Other long term (current) drug therapy; Z90.49 Acquired absence of other specified parts of digestive tract; Z87.891 Personal history of nicotine dependence; Z95.5 Presence of coronary angioplasty implant and graft; Z88.2 Allergy status to sulfonamides; Z88.8 Allergy status to other drugs, medicaments and biological substances; Z88.6 Allergy status to analgesic agent; Z91.041 Radiographic dye allergy status; Z80.52 Family history of malignant neoplasm of bladder; Z81.8 Family history of other mental and behavioral disorders; Z80.8 Family history of malignant neoplasm of other organs or systems
CPT/HCPCS: 36415; 71046; 72158; 80048; 80053; 81001; 82550; 82553; 83605; 83735; 84484; 85025; 85610; 85730; 94760; 96361; 96365; 99285

== ENCOUNTER 2018-09-18 14:00 | Emergency (ER) | payer MEDICARE ==
--- NOTE | 2018-09-18 14:09 | ED ---
Chest Pain HPI - General Stated Complaint: CHEST PAIN Time Seen by Provider: 09/18/18 14:00 Source: patient, family, EMS, RN notes reviewed Mode of arrival: EMS - History of Present Illness Initial Comments: This is a 68-year-old male with a prior history of IN in 2015 states he had sudden onset of sharp midsternal chest pain with some radiation any says was crushing in nature it slight shortness of breath with it going last about 30 seconds. He states he was walking out side when it happened he thought he taken nitroglycerin after this started this is unclear per paramedics he made taken 310 mg Aricept instead currently is pain-free no fevers chills nausea vomiting sweats he does state since of the pain. No other recent issues or modifying factors MD Complaint: chest pain - Related Data Home Medications Medication Instructions Recorded Confirmed Atenolol 50 mg PO HS 11/06/15 09/18/18 NIFEdipine [Adalat cc] 90 mg PO HS 11/06/15 09/18/18 Omeprazole [PriLOSEC] 20 mg PO BID 11/06/15 09/18/18 Tamsulosin [Flomax] 0.4 mg PO HS 07/17/17 09/18/18 Memantine [Namenda] 10 mg PO BID 09/01/17 09/18/18 Sennosides [Senna] 8.6 mg PO QID PRN 09/01/17 09/18/18 clonazePAM [KlonoPIN] 0.5 mg PO BID 09/01/17 09/18/18 Atropine Ophth Soln 1% 5Ml [Isopto 2 drop SL DAILY PRN 09/18/18 09/18/18 Atropine 1% 5Ml] Carbidopa-Levodopa 25-100 mg 1 tab PO BID@1200,2100 09/18/18 09/18/18 [Sinemet 25-100 mg] Carbidopa-Levodopa 25-100 mg 2 tab PO DAILY@0800 09/18/18 09/18/18 [Sinemet 25-100] HYDROcodone/APAP 7.5-325MG [[place] 1 tab PO Q6H PRN 09/18/18 09/18/18 7.5-325] QUEtiapine [SEROquel] 100 mg PO HS 09/18/18 09/18/18 Sertraline [Zoloft] 50 mg PO DAILY 09/18/18 09/18/18 Previous Rx's Medication Instructions Recorded Aspirin 81 mg PO DAILY chew 09/02/17 Gabapentin [Neurontin] 100 mg PO TID #90 cap 09/13/17 rOPINIRole HCL [Requip] 0.25 mg PO TID #90 tab 09/13/17 Allergies Allergy/AdvReac Type Severity Reaction Status Date / Time acetaminophen Allergy Swelling Verified 09/18/18 14:17 [From Tylenol PM] diphenhydramine Allergy Unknown Verified 09/18/18 14:17 [From Advil PM] ibuprofen [From Advil PM] Allergy Unknown Verified 09/18/18 14:17 Iodinated Contrast- Oral and Allergy Unknown Verified 09/18/18 14:17 IV Dye Sulfa (Sulfonamide Allergy Anaphylaxis Verified 09/18/18 14:17 Antibiotics) Review of Systems ROS Statement: Those systems with pertinent positive or pertinent negative responses have been documented in the HPI. ROS Other: All systems not noted in ROS Statement are negative. EKG Findings - EKG Results: EKG: interpreted by LINDA, sinus rhythm (Sinus rhythm rate is 75 QRS 122 QT since QTC of 414/462 right bundle-branch block pattern this is consistent with he was a bit of a MS as well as EKG dated 09/08/17) Past Medical History Past Medical History: Coronary Artery Disease (CAD), Chest Pain / Angina, GERD/Reflux, Hyperlipidemia, Hypertension, Neurologic Disorder, Osteoarthritis (OA), Prostate Disorder Additional Past Medical History / Comment(s): Parkinsons. Small hiatal hernia, diverticulosis, gastritis, low grade distal esophagitis, chronic sinusitis, low back pain and bilateral hip pain with bilateral leg weakness-has been seeing a chiropractor. History of Any Multi-Drug Resistant Organisms: None Reported Past Surgical History: Adenoidectomy, Cholecystectomy, Heart Catheterization With Stent, Orthopedic Surgery, Tonsillectomy Additional Past Surgical History / Comment(s): VASECTOMY, Circumcism, RIGHT SHOULDER arthrotomy, lasik surgery bilateral eyes, EGD's amd colonoscopies now q 5 yrs (originally had some precancerous spots in colon). Past Anesthesia/Blood Transfusion Reactions: No Reported Reaction Date of Last Stent Placement:: 11/06/2015 Past Psychological History: No Psychological Hx Reported, Anxiety, Panic Disorder Additional Psychological History / Comment(s): Pt resides with his spouse. 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 He is independent. Smoking Status: Former smoker Past Alcohol Use History: None Reported Additional Past Alcohol Use History / Comment(s): Patient was a smoker for 5 years 1 pack per day and quit in 1970. He denies any medical marijuana, marijuana street drug use. He drinks alcohol occasionally. He recently retired in January 2015 after 46 years as a community relations police lieutenant. Past Drug Use History: None Reported - Past Family History Father Family Medical History: Cancer, Dementia Additional Family Medical History / Comment(s): Father at the age of 64 yrs from dementia and had bladder cancer. Mother Family Medical History: Cancer Additional Family Medical History / Comment(s): Mother at age 63 with cancer believed to start in her leg with metastatic disease to the lung and brain. Patient does not have any siblings. Patient has 2 daughters and 1 son with no major medical problems. General Exam - General Exam Comments Initial Comments: This is a well-developed well-nourished awake alert oriented 3 male General appearance: alert Head exam: Present: atraumatic, normocephalic, normal inspection Eye exam: Present: normal appearance, PERRL, EOMI. Absent: scleral icterus, conjunctival injection, periorbital swelling ENT exam: Present: normal exam, mucous membranes moist Neck exam: Present: normal inspection, full ROM, other (No stridor JVD or bruits). Absent: tenderness, meningismus, lymphadenopathy Respiratory exam: Present: normal lung sounds bilaterally. Absent: respiratory distress, wheezes, rales, rhonchi, stridor, chest wall tenderness Cardiovascular Exam: Present: regular rate, normal rhythm, normal heart sounds. Absent: systolic murmur, diastolic murmur, rubs, gallop, clicks GI/Abdominal exam: Present: soft, normal bowel sounds. Absent: distended, tenderness, guarding, rebound, rigid Extremities exam: Present: normal inspection, full ROM, normal capillary refill. Absent: tenderness, pedal edema, joint swelling, calf tenderness Back exam: Present: normal inspection Neurological exam: Present: alert, oriented X3, CN II-XII intact Psychiatric exam: Present: normal affect, normal mood Skin exam: Present: warm, dry, intact, normal color. Absent: rash Course Vital Signs 09/18/18 09/18/1809/18/19 14:05 14:18 14:36 Temperature 98.7 F Pulse Rate 80 Pulse Rate [ 81 Assistant Director Of Admissions ] Respiratory 20 18 Rate Blood Pressure 138/84 O2 Sat by Pulse 98 Oximetry - Reevaluation(s) Reevaluation #1: 09/18/18 14:08 I did review the EKG that was submitted by EMS no definite acute ST-T wave changes Chest Pain MDM - MDM I did review the imaging and report no acute findings. Patient did have a CAT scan performed due to the elevated d-dimer no acute evidence of pulmonary emboli. Patient will be discharged she is symptom free at this time likely secondary to the patient's hiatal hernia he will follow-up with his doctor return when necessary Disposition Clinical Impression: Atypical chest pain Disposition: HOME SELF-CARE Condition: Good Instructions (If sedation given, give patient instructions): Chest Pain (ED) Is patient prescribed a controlled substance at d/c from ED?: No Referrals: Pete Henriquez MD [Primary Care Provider] - 1-2 days
[2018-09-18 14:43] LABS: Basophils % (A) 0 %; Eosinophils # (A) 0.1 k/uL (0-0.7); Eosinophils % (A) 2 %; HCT 40.4 % (39.0-53.0); HGB 13.4 gm/dL (13.0-17.5); Lymphocytes # (A) 0.9 k/uL (1.0-4.8); Lymphocytes % (A) 18 %; MCH 30.1 pg (25.0-35.0); MCV 91.1 fL (80.0-100.0); Mean Platelet Volume 6.5; Monocytes # (A) 0.2 k/uL (0-1.0); Monocytes % (A) 5 %; Neutrophils # (A) 3.5 k/uL (1.3-7.7); Neutrophils % (A) 74 %; Platelet Count 259 k/uL (150-450); RBC 4.43 m/uL (4.30-5.90); RDW 12.6 % (11.5-15.5); WBC 4.7 k/uL (3.8-10.6)
[2018-09-18 14:53] LABS: ALT 28 U/L (21-72); AST 28 U/L (17-59); Albumin 3.7 g/dL (3.5-5.0); Alkaline Phosphatase 61 U/L (38-126); Amylase 30 U/L (30-110); Anion Gap 4 mmol/L; Blood Urea Nitrogen 18 mg/dL (9-20); Calcium 9.1 mg/dL (8.4-10.2); Carbon Dioxide 31 mmol/L (22-30); Chloride 108 mmol/L (98-107); Creatine Kinase 32 U/L (55-170); Glucose 174 mg/dL (74-99); Lipase 67 U/L (23-300); Magnesium 1.6 mg/dL (1.6-2.3); Potassium 3.5 mmol/L (3.5-5.1); Sodium 143 mmol/L (137-145); Total Bilirubin 1.1 mg/dL (0.2-1.3); Total Protein 6.1 g/dL (6.3-8.2)
[2018-09-18 14:57] LABS: Partial Thromboplastin Time 24.3 sec (22.0-30.0); Prothrombin Time 10.7 sec (9.0-12.0)
[2018-09-18 15:18] LABS: D-Dimer 0.79 mg/L FEU (<0.60)
--- NOTE | 2018-09-18 15:31 | XR ---
EXAMINATION TYPE: XR chest 2V DATE OF EXAM: 09/18/2018 COMPARISON: Chest radiograph 09/08/2017 HISTORY: Left-sided chest pain TECHNIQUE: Frontal and lateral views of the chest are obtained. FINDINGS: There is no focal air space opacity, pleural effusion, or pneumothorax seen. The cardiac silhouette size is within normal limits. The osseous structures are intact. IMPRESSION: No acute cardiopulmonary process. No significant interval change.
[2018-09-18] MEDS ORDERED: methylPREDNISolone SOD SUCCI 125 MG/2 ML VIAL IV STA (15:42)
[2018-09-18] MEDS ORDERED: FAMOTIDINE 20 MG/2 ML VIAL IV STA (15:42)
--- NOTE | 2018-09-18 16:33 | CT ---
EXAMINATION TYPE: CT angio chest DATE OF EXAM: 09/18/2018 COMPARISON: CT pulmonary angiogram 11/06/2015 HISTORY: chest pain CT DLP: 301.9 mGycm. Automated Exposure Control for Dose Reduction was Utilized. CONTRAST: CTA scan of the thorax is performed with IV Contrast, patient injected with 83cc mL of Isovue 370, pu lmonary embolism protocol. MIP Images are created on CT scanner and reviewed. FINDINGS: LUNGS: The lungs are grossly clear, there is no concerning parenchymal mass or nodule identified. T here is no pleural effusion or pneumothorax seen. The tracheobronchial tree is patent. MEDIASTINUM: There is satisfactory enhancement of the pulmonary artery and its branches, there is no CT evidence for pulmonary embolism. There are no greater than 1 cm hilar or mediastinal lymph nodes. No cardiomegaly or pericardial effusion is seen. Ascending and descending thoracic aorta within no rmal limits. OTHER: Limited evaluation of the upper abdomen reveals a prior cholecystectomy. Nonspecific low-atten uation lesion in the anterior aspect of the left hepatic lobe measuring up to 1.9 cm retrospectively unchanged when compared to study from 2018. Right sided renal cyst is partially visualized. IMPRESSION: No evidence of pulmonary embolism.
[2018-09-18 17:23] VITALS: BP 137/87; PULSE 82; RESP 16; TEMP 98.3
== END 2018-09-18 17:19 | disposition home or self-care (01) ==
LOC: EC 14:00
DX: R07.89 Other chest pain (principal); R06.02 Shortness of breath; R79.89 Other specified abnormal findings of blood chemistry; I25.10 Atherosclerotic heart disease of native coronary artery without angina pectoris; K21.9 Gastro-esophageal reflux disease without esophagitis; I10 Essential (primary) hypertension; N42.9 Disorder of prostate, unspecified; G20 Parkinson's disease; F41.9 Anxiety disorder, unspecified; Z95.5 Presence of coronary angioplasty implant and graft; Z87.891 Personal history of nicotine dependence; Z79.899 Other long term (current) drug therapy; Z88.6 Allergy status to analgesic agent; Z88.8 Allergy status to other drugs, medicaments and biological substances; Z91.041 Radiographic dye allergy status; Z88.2 Allergy status to sulfonamides
CPT/HCPCS: 36415; 93005; 85379; 83880; 80053; 82150; 82550; 83690; 83735; 84484; 85025; 85610; 85730; 71046; 71275; 99285; 96374; 96375; J2930; Q9967